=== PATIENT | female | born 1960 | race African-American/Black ===

== ENCOUNTER 2019-09-26 15:59 | Outpatient (CLI) | payer OTHER, SELFPAY ==
--- NOTE | ~2019-09-26 | MR_ITS ---
EXAMINATION: MR shoulder LT wo con DATE: 09/26/2019 17:13 INDICATION: Generalized left shoulder pain. TECHNIQUE: Magnetic resonance imaging (MRI) of the left shoulder was performed without intravenous co ntrast. Sequences included axial PD-weighted FS FSE, coronal oblique PD-weighted FS FSE, coronal obli que T2-weighted FS FSE, sagittal PD-weighted FS FSE, and sagittal T1-weighted SE. COMPARISON: Left shoulder radiographs dated 01/24/2019 FINDINGS: Coracoacromial arch: The acromion undersurface is curved in morphology (type II). There is a small anterior subacromial sp ur at the attachment of the coracoacromial ligament which is mildly thickened near its attachment. Ne gligible acromioclavicular osteoarthritis. Rotator cuff: Moderate tendinopathy of the mid to posterior supraspinatus tendon and mild tendinopathy of the anter ior infraspinatus tendon without discrete tears. The subscapularis and teres minor tendons are normal . Normal rotator cuff muscle bulk and signal. Biceps tendon, glenoid labrum and glenohumeral cartilage: Long head of the biceps tendon is normal. Glenoid labrum is normal. Glenohumeral cartilage is normal. Fluid: Physiologic amount of fluid in the glenohumeral joint and biceps tendon sheath. No loose osteochondra l bodies. Small amount of fluid in the subacromial/subdeltoid bursa consistent with mild bursitis. Bones: Normal marrow signal with no edema, fracture or pathologic marrow replacing process. IMPRESSION: 1. Moderate supraspinatus and mild infraspinatus tendinopathy without discrete tear. 2. Mild subacromial/subdeltoid bursitis. Reviewed, dictated and finalized at location A. ND RIGGER
== END 2019-09-26 16:00 ==
PROVIDERS: PCP Internal Medicine; Visit Provider Orthopaedic Surgery
DX: M75.82 Other shoulder lesions, left shoulder (principal); M75.52 Bursitis of left shoulder
CPT/HCPCS: 73221

== ENCOUNTER 2019-10-03 17:53 | Emergency (ER) | payer OTHER, SELFPAY ==
--- NOTE | ~2019-10-03 | CT_ITS ---
EXAMINATION: CT abdomen pelvis wo con DATE: 10/03/2019 21:38 INDICATION: Epigastric pain TECHNIQUE: Computed tomography (CT) of the abdomen and pelvis was performed without intravenous contr ast. Automated exposure control and iterative reconstruction technique were employed. The dose-length product was 369.24 mGy-cm. COMPARISON: None FINDINGS: Groundglass and patchy consolidation in the left lower lobe consistent with pneumonia. Mild periphera l reticular opacities in the right lower lobe which could represent atelectasis or mild pulmonary nely ma. Heart size is normal. Very small pericardial effusion. No pleural effusion. Diffuse hepatic steat osis with scattered peripheral fatty sparing. Cholecystectomy clips at the gallbladder fossa. Spleen, pancreas, bilateral adrenal glands and kidneys are normal. Normal appendix. There are few scattered colonic diverticula without adjacent inflammatory change to suggest diverticulitis. No bowel obstruct ion. Bladder, anteverted uterus and bilateral adnexa are unremarkable. Trace amount of ascites in the pelvis. There is calcified atherosclerosis of the aorta and bilateral iliac arteries. Infra umbilica l midline abdominal wall surgical scar. Bilateral moderate lumbar facet osteoarthritis. IMPRESSION: 1. Left lower lobe pneumonia. 2. Very small pericardial effusion. Length 3. Diffuse hepatic steatosis. Reviewed, dictated and finalized at location A. RY MACHINE MECHANIC SUPERVISOR
[2019-10-03 18:50] VITALS: BP 121/76; PULSE 97; RESP 16; TEMP 36.1; O2SAT 97
[2019-10-03 18:59] LABS: Basophils Percent Auto 0.4 % (0.2-1.2); Eosinophils Percent Auto 0.2 % (0-4.4); Hemoglobin 14.6 g/dL (12.0-15.0); Immature Granulocyte Absolute 0.02 K/mm3 (0.00-0.031); Immature Granulocyte Percent A 0.4 % (0-0.5); Lymphocytes Absolute Auto 1.49 K/mm3 (0.9-3.2); Lymphocytes Percent Auto 32.1 % (18.3-44.2); Mean Corpuscular Hemoglobin 28.7 pg (26-34); Mean Corpuscular Volume 84.6 fl (80-100); Mean Platelet Volume 9.1 fl (7.4-10.4); Monocytes Absolute Auto 0.3 K/mm3 (0.1-0.6); Monocytes Percent Auto 5.8 % (2.6-8.5); Neutrophils Absolute Auto 2.8 K/mm3 (1.3-6.7); Neutrophils Percent Auto 61.1 % (45.5-73.1); Platelet Count Result 265 k/mm3 (150-375); Red Blood Count 5.08 M/mm3 (4.2-5.4); Red Cell Distribution Width 12.1 % (11.5-14.5); White Blood Count 4.6 K/mm3 (4.5-10.0)
[2019-10-03 19:11] LABS: Alanine Aminotransferase 82 U/L (4-35); Albumin Level 4.6 g/dL (3.5-5.1); Alkaline Phosphatase 91 U/L (38-126); Aspartate Amino Transferase 51 U/L (14-36); Bilirubin,Total 0.9 mg/dL (0.2-1.3); Blood Urea Nitrogen 10 mg/dL (7-17); Calcium 9.6 mg/dL (8.4-10.2); Carbon Dioxide 29 mmol/L (22-30); Chloride 96 mmol/L (98-107); Estimated CRCL calculation 412 ml/min; Estimated Glomerular Filt Rate > 60; Glucose 181 mg/dL (65-105); Lipase 41 U/L (23-300); Potassium 3.7 mmol/L (3.4-5.0); Sodium 139 mmol/L (137-145)
[2019-10-03 19:18] LABS: Add Urine Microscopic? YES; Appearance Urine Clear (Clear); Bacteria Urine Trace /hpf; Bilirubin Urine Negative (Negative); Blood Urine Negative (Negative); Color Urine Yellow (Yellow); Glucose Urine UA 3+ mg/dL (Negative); Ketones Urine Trace mg/dL (Negative); Leukocyte Esterase Ur Negative LEU/UL (Negative); Mucus Urine Rare /lpf; Nitrate Urine Negative (Negative); Protein Urine Negative (Negative); RBC Urine 0-2 /hpf (0-2); Squamous Epithelial Cell Urine Many /hpf (Few); Urobilinogen Urine Negative mg/dL (<2.0); WBC Urine 0-3 /hpf
[2019-10-03 19:33] LABS: Specific Grav Ur 1.037 (1.001-1.035)
[2019-10-03 19:52] VITALS: BP 109/85; PULSE 87; RESP 22; TEMP 37; O2SAT 99
--- NOTE | 2019-10-03 19:57 | ED.ABDPAIN ---
HPI - Abdominal Pain General Chief Complaint: Abdominal Pain Stated Complaint: Abd pain Time Seen by Provider: 10/03/19 19:55 Source: patient and RN notes reviewed Mode of arrival: other Limitations: no limitations History of Present Illness HPI narrative: Pt is a 59 y/o female who presents to the ED with c/o diffuse abdominal cramping pain that began 3:30 PM today. Pt denies having a BM today. Pt states that she takes Aleve and Advil for her chronic back pain. Pt denies taking 4 tablets every day. Pt also reports N/V/D and a cough, but denies dysuria and fever. MD elicited complaint: abdominal pain Onset (ago): hour(s) Pain Consistency: constant Location: diffuse Severity: mild Quality: cramping Relieving factors: nothing Associated symptoms: nausea, vomiting, diarrhea and other (cough) Related Data Home Medications Medication Instructions Recorded Confirmed aspirin 81 mg tablet,delayed 81 mg PO DAILY 08/26/19 release ertugliflozin 5 mg tablet 5 mg PO QAM 08/26/19 insulin lispro 100 unit/mL 10 unit SUB-Q TID 08/26/19 subcutaneous solution insulin syringe,safetyneedle 0.3 #500 each 08/26/19 mL 30 x /16 losartan 50 mg tablet 50 mg PO DAILY 08/26/19 metformin 1,000 mg tablet 1,000 mg PO BID 08/26/19 rosuvastatin 20 mg tablet 20 mg PO DAILY 08/26/19 Allergies Allergy/AdvReac Type Severity Reaction Status Date / Time No Known Allergies Allergy Verified 08/31/19 11:14 Review of Systems Review of Systems: All systems reviewed & are unremarkable except as noted in HPI and below Constitutional: Constitutional: Denies fever(s) Gastrointestinal: Gastrointestinal: Reports abdominal pain (diffuse, cramping), Reports diarrhea, Reports nausea and Reports vomiting Genitourinary: Genitourinary: Denies dysuria [facility] Past Medical History Medical History (Updated 10/03/19 @ 23:58 by Yoshi Amador MD) Diabetes Dyslipidemia associated with type 2 diabetes mellitus Essential hypertension Gallstones GERD (gastroesophageal reflux disease) Hepatic steatosis Lumbar spondylolysis Osteoarthritis of spine with radiculopathy, lumbosacral region Osteoarthrosis, hip Post-menopausal Rotator cuff tear, left Ruptured intervertebral disc Sciatica of left side Sensorineural hearing loss (SNHL) of left ear Tobacco use Type 2 diabetes mellitus with hyperglycemia, with long-term current use of insulin Surgical History Surgical History (Updated 10/03/19 @ 20:11 by Wendy Garvey) H/O spinal fusion Hx of section Hx of cholecystectomy Social History Social History Smoking status: Former smoker Smoking end date: 08/10/09 Alcohol intake: current Exam Const: General: in distress mild Nutritional Appearance: well nourished Orientation/consciousness: patient oriented x3 (alert) and Other orientation findings (Alert) Limitations: no limitations HENMT: Head: normocephalic and atraumatic Ears: external ears normal General nose exam: No nasal discharge present and no epistaxis Face and sinus: face symmetric Mouth: Yes lip normal, Yes tongue normal and Yes moist mucous membranes Throat: other (No exudate, no erythema) Eyes: Conjunctivae: conjunctivae normal Sclera: sclerae normal EOM: EOMs intact bilaterally Neck: Neck: full ROM, no lymphadenopathy and supple Thyroid: thyroid normal Chest: Chest palpation & inspection: no tenderness Resp: Effort & Inspection: normal respiratory effort Auscultation: clear to auscultation bilaterally, no rales, no rhonchi, no wheezes and other (breath sounds equal) Cardio: Rate: regular rate Rhythm: regular rhythm Heart sounds: no gallops and no murmurs GI: Inspection: non-distended GI Palp: Yes abdominal tenderness (epigastric and RUQ) Auscultation: other (bowel sounds present) : General: Yes no CVA tenderness Back/Spine/Pelvis: Back: no CVA tenderness Thoracic/Lumbar Spine: thoracic and lumbar
[2019-10-03] MEDS: DICYCLOMINE HCL INJ 20 MG/2 ML VIAL IM (20:57)
[2019-10-03] MEDS: PROCHLORPERAZINE EDISYLATE 10 MG/2 ML VIAL IV PUSH (20:57)
[2019-10-03 21:09] VITALS: BP 127/67; PULSE 87; RESP 16; O2SAT 100
[2019-10-03 22:40] VITALS: BP 115/74; PULSE 88; RESP 16; TEMP 36.3; O2SAT 100
[2019-10-04] MEDS: AZITHROMYCIN 250 MG TABLET 500 MG PO (00:09)
[2019-10-04 00:10] VITALS: BP 106/85; PULSE 80; RESP 17; TEMP 36.8; O2SAT 100
== END 2019-10-04 00:11 | disposition home or self-care (01) ==
PROVIDERS: Emergency Provider Emergency Medicine; PCP Internal Medicine
DX: J18.9 Pneumonia, unspecified organism (principal); I10 Essential (primary) hypertension; E11.69 Type 2 diabetes mellitus with other specified complication; E78.49 Other hyperlipidemia; Z79.84 Long term (current) use of oral hypoglycemic drugs; Z79.4 Long term (current) use of insulin; K21.9 Gastro-esophageal reflux disease without esophagitis; Z98.1 Arthrodesis status; Z87.891 Personal history of nicotine dependence; K76.0 Fatty (change of) liver, not elsewhere classified; Z79.82 Long term (current) use of aspirin
CPT/HCPCS: 36415; 74176; 80053; 81001; 83690; 85025; 96372; 96374; 99284; A9270; J0500; J0780

== ENCOUNTER 2019-11-29 11:22 | Outpatient (CLI) | payer OTHER, SELFPAY ==
[2019-11-29 11:53] LABS: Basophils Percent Auto 0.8 % (0.2-1.2); Eosinophils Absolute Auto 0.1 K/mm3 (0-0.3); Eosinophils Percent Auto 1.7 % (0-4.4); Hematocrit 44.3 % (37.0-47.0); Hemoglobin 14.7 g/dL (12.0-15.0); Immature Granulocyte Absolute 0.02 K/mm3 (0.00-0.031); Immature Granulocyte Percent A 0.6 % (0-0.5); Lymphocytes Absolute Auto 1.68 K/mm3 (0.9-3.2); Lymphocytes Percent Auto 46.5 % (18.3-44.2); Mean Corpuscular HGB Conc 33.2 g/dl (32-36); Mean Corpuscular Hemoglobin 28.4 pg (26-34); Mean Corpuscular Volume 85.7 fl (80-100); Mean Platelet Volume 8.9 fl (7.4-10.4); Monocytes Absolute Auto 0.2 K/mm3 (0.1-0.6); Monocytes Percent Auto 6.6 % (2.6-8.5); Neutrophils Absolute Auto 1.6 K/mm3 (1.3-6.7); Neutrophils Percent Auto 43.8 % (45.5-73.1); Platelet Count Result 270 k/mm3 (150-375); Red Blood Count 5.17 M/mm3 (4.2-5.4); Red Cell Distribution Width 12.6 % (11.5-14.5); White Blood Count 3.6 K/mm3 (4.5-10.0)
[2019-11-29 12:01] LABS: Hemoglobin A1C 8.1 % (<5.7)
[2019-11-29 12:08] LABS: Alanine Aminotransferase 36 U/L (4-35); Albumin Level 4.7 g/dL (3.5-5.1); Alkaline Phosphatase 69 U/L (38-126); Aspartate Amino Transferase 34 U/L (14-36); Blood Urea Nitrogen 8 mg/dL (7-17); Calcium 10.2 mg/dL (8.4-10.2); Carbon Dioxide 28 mmol/L (22-30); Chloride 102 mmol/L (98-107); Estimated Glomerular Filt Rate > 60; Glucose 189 mg/dL (65-105); Potassium 4.2 mmol/L (3.4-5.0); Sodium 139 mmol/L (137-145)
[2019-11-29 13:05] LABS: Hepatitis B Surface Antigen Negative (Negative)
[2019-11-29 13:10] LABS: HAV RESULT Negative (Negative); Hepatitis B Core IgM Result Negative (Negative)
[2019-11-29 13:22] LABS: Hepatitis C Virus Antibody Negative (Negative)
[2019-11-29 13:26] LABS: Microalbumin Urine Random < 6.0 mg/L (0-16.7)
== END 2019-11-29 11:23 | disposition home or self-care (01) ==
PROVIDERS: PCP Internal Medicine; Visit Provider Internal Medicine
DX: E11.9 Type 2 diabetes mellitus without complications (principal); Z77.21 Contact with and (suspected) exposure to potentially hazardous body fluids
CPT/HCPCS: 36415; 80053; 80074; 82043; 83036; 85025

== ENCOUNTER 2019-12-07 09:13 | Outpatient (CLI) | payer OTHER, SELFPAY ==
[2019-12-07 09:35] LABS: Eosinophils Absolute Auto 0.1 K/mm3 (0-0.3); Eosinophils Percent Auto 2.1 % (0-4.4); Hematocrit 40.7 % (37.0-47.0); Hemoglobin 13.4 g/dL (12.0-15.0); Immature Granulocyte Absolute 0.01 K/mm3 (0.00-0.031); Immature Granulocyte Percent A 0.3 % (0-0.5); Lymphocytes Absolute Auto 1.76 K/mm3 (0.9-3.2); Lymphocytes Percent Auto 46.2 % (18.3-44.2); Mean Corpuscular HGB Conc 32.9 g/dl (32-36); Mean Corpuscular Hemoglobin 28.5 pg (26-34); Mean Corpuscular Volume 86.4 fl (80-100); Mean Platelet Volume 8.8 fl (7.4-10.4); Monocytes Absolute Auto 0.3 K/mm3 (0.1-0.6); Monocytes Percent Auto 8.1 % (2.6-8.5); Neutrophils Absolute Auto 1.6 K/mm3 (1.3-6.7); Neutrophils Percent Auto 42.3 % (45.5-73.1); Platelet Count Result 251 k/mm3 (150-375); Red Blood Count 4.71 M/mm3 (4.2-5.4); Red Cell Distribution Width 12.5 % (11.5-14.5); White Blood Count 3.8 K/mm3 (4.5-10.0)
[2019-12-07 09:46] LABS: Cholesterol 136 mg/dL (0-200); HDL Direct 51 mg/dL; Triglycerides 66 mg/dL (<150)
[2019-12-07 09:56] LABS: LDL Cholesterol Direct 59 mg/dL
== END 2019-12-07 09:14 | disposition home or self-care (01) ==
PROVIDERS: PCP Internal Medicine; Visit Provider Internal Medicine
DX: D72.819 Decreased white blood cell count, unspecified (principal); E78.5 Hyperlipidemia, unspecified
CPT/HCPCS: 36415; 80061; 85025

== ENCOUNTER 2020-02-24 12:35 | Outpatient (CLI) | payer OTHER, SELFPAY ==
[2020-02-24 12:53] LABS: Basophils Percent Auto 0.9 % (0.2-1.2); Eosinophils Absolute Auto 0.1 K/mm3 (0-0.3); Eosinophils Percent Auto 2.8 % (0-4.4); Hematocrit 44.3 % (37.0-47.0); Hemoglobin 14.8 g/dL (12.0-15.0); Immature Granulocyte Absolute 0.02 K/mm3 (0.00-0.031); Immature Granulocyte Percent A 0.5 % (0-0.5); Lymphocytes Absolute Auto 1.66 K/mm3 (0.9-3.2); Lymphocytes Percent Auto 39.2 % (18.3-44.2); Mean Corpuscular HGB Conc 33.4 g/dl (32-36); Mean Corpuscular Volume 86.7 fl (80-100); Mean Platelet Volume 8.9 fl (7.4-10.4); Monocytes Absolute Auto 0.3 K/mm3 (0.1-0.6); Monocytes Percent Auto 7.1 % (2.6-8.5); Neutrophils Absolute Auto 2.1 K/mm3 (1.3-6.7); Neutrophils Percent Auto 49.5 % (45.5-73.1); Platelet Count Result 284 k/mm3 (150-375); Red Blood Count 5.11 M/mm3 (4.2-5.4); Red Cell Distribution Width 13.1 % (11.5-14.5); White Blood Count 4.2 K/mm3 (4.5-10.0)
== END 2020-02-24 12:36 | disposition home or self-care (01) ==
PROVIDERS: PCP Internal Medicine; Visit Provider Internal Medicine
DX: D72.819 Decreased white blood cell count, unspecified (principal)
CPT/HCPCS: 36415; 85025

== ENCOUNTER 2020-03-19 11:16 | Outpatient (CLI) | payer OTHER, SELFPAY ==
[2020-03-19 12:10] LABS: Alanine Aminotransferase 42 U/L (4-35); Albumin Level 4.7 g/dL (3.5-5.1); Alkaline Phosphatase 69 U/L (38-126); Anion Gap 9 mmol/L (8-16); Aspartate Amino Transferase 34 U/L (14-36); Bilirubin,Total 0.8 mg/dL (0.2-1.3); Blood Urea Nitrogen 9 mg/dL (7-17); Calcium 9.8 mg/dL (8.4-10.2); Carbon Dioxide 28 mmol/L (22-30); Chloride 100 mmol/L (98-107); Estimated Glomerular Filt Rate > 60; Glucose 241 mg/dL (65-105); Potassium 4.1 mmol/L (3.4-5.0); Sodium 137 mmol/L (137-145)
[2020-03-19 12:15] LABS: Hemoglobin A1C 7.4 % (<5.7)
[2020-03-19 14:00] LABS: MALB Creatinine Ratio < 21.4 mg/g (0-30); Microalbumin Urine Random < 6.0 mg/L (0-16.7)
== END 2020-03-19 11:17 | disposition home or self-care (01) ==
LOC: ANHLAB 11:18
PROVIDERS: PCP Internal Medicine; Visit Provider Internal Medicine
DX: E11.65 Type 2 diabetes mellitus with hyperglycemia (principal); Z79.4 Long term (current) use of insulin
CPT/HCPCS: 36415; 80053; 82043; 83036

== ENCOUNTER 2020-07-17 11:30 | Outpatient (CLI) | payer OTHER, SELFPAY ==
[2020-07-17 11:51] LABS: Basophils Percent Auto 0.8 % (0.2-1.2); Eosinophils Absolute Auto 0.1 K/mm3 (0-0.3); Hemoglobin 14.7 g/dL (12.0-15.0); Immature Granulocyte Absolute 0.03 K/mm3 (0.00-0.031); Immature Granulocyte Percent A 0.8 % (0-0.5); Lymphocytes Absolute Auto 1.43 K/mm3 (0.9-3.2); Lymphocytes Percent Auto 35.9 % (18.3-44.2); Mean Corpuscular HGB Conc 33.4 g/dl (32-36); Mean Corpuscular Hemoglobin 29.4 pg (26-34); Mean Platelet Volume 8.9 fl (7.4-10.4); Monocytes Absolute Auto 0.3 K/mm3 (0.1-0.6); Monocytes Percent Auto 7.3 % (2.6-8.5); Neutrophils Absolute Auto 2.1 K/mm3 (1.3-6.7); Neutrophils Percent Auto 53.2 % (45.5-73.1); Platelet Count Result 227 k/mm3 (150-375); Red Cell Distribution Width 12.7 % (11.5-14.5)
[2020-07-17 12:09] LABS: Alanine Aminotransferase 61 U/L (4-35); Albumin Level 4.1 g/dL (3.5-5.1); Alkaline Phosphatase 68 U/L (38-126); Anion Gap 9 mmol/L (8-16); Aspartate Amino Transferase 40 U/L (14-36); Blood Urea Nitrogen 9 mg/dL (7-17); Calcium 9.8 mg/dL (8.4-10.2); Carbon Dioxide 24 mmol/L (22-30); Chloride 103 mmol/L (98-107); Estimated Glomerular Filt Rate > 60; Glucose 192 mg/dL (65-105); Potassium 3.9 mmol/L (3.4-5.0); Sodium 136 mmol/L (137-145)
[2020-07-17 12:43] LABS: Creatinine Urine 57.4 mg/dL
[2020-07-17 12:49] LABS: Hemoglobin A1C 7.5 % (<5.7)
[2020-07-17 12:59] LABS: Vitamin D 25 Hydroxy 23.9 ng/mL
[2020-07-17 13:31] LABS: MALB Creatinine Ratio < 10.5 mg/g (0-30); Microalbumin Urine Random < 6.0 mg/L (0-16.7)
== END 2020-07-17 11:31 | disposition home or self-care (01) ==
PROVIDERS: PCP Internal Medicine; Visit Provider Internal Medicine
DX: E11.9 Type 2 diabetes mellitus without complications (principal); E78.5 Hyperlipidemia, unspecified; I10 Essential (primary) hypertension; Z79.4 Long term (current) use of insulin
CPT/HCPCS: 36415; 80053; 82043; 82306; 83036; 85025

== ENCOUNTER 2020-09-01 08:34 | Outpatient (CLI) | payer OTHER, SELFPAY ==
--- NOTE | ~2020-09-01 | MR_ITS ---
EXAMINATION: MR shoulder LT wo con DATE: 09/01/2020 10:08 INDICATION: Left shoulder pain TECHNIQUE: Magnetic resonance imaging (MRI) of the left shoulder was performed without intravenous co ntrast. Sequences included axial PD-weighted FS FSE, coronal oblique PD-weighted FS FSE, coronal obli que T2-weighted FS FSE, sagittal PD-weighted FS FSE, and sagittal T1-weighted SE. COMPARISON: Left shoulder radiographs dated 03/23/2020 and left shoulder MRI dated 09/26/2019 FINDINGS: Coracoacromial arch: The acromion undersurface is curved in morphology (type II). Density is a small anterior subacromial spur at the insertion of the coracoacromial ligament which is mildly thickened at its acromial attach ment. Negligible acromioclavicular osteoarthritis. Rotator cuff: Interval progression of moderate supraspinatus and infraspinatus tendinopathy. There is a new small p artial-thickness intrasubstance tear of the conjoined portion of the supraspinatus and infraspinatus tendons centered 1 cm from the junction of the superior and middle facet footplates. The tear measure s approximately 4 mm AP and involves up to one third of the tendon thickness. The teres minor tendon is normal. Mild subscapularis tendinopathy without discrete tear. Normal rotator cuff muscle bulk and signal. Biceps tendon, glenoid labrum and glenohumeral cartilage: Long head of the biceps tendon is normal. Glenoid labrum is normal. Glenohumeral cartilage is normal. Fluid: Physiologic amount of fluid in the glenohumeral joint and biceps tendon sheath. No loose osteochondra l bodies. Small amount of fluid in the subacromial/subdeltoid bursa consistent with mild bursitis. Bones: Normal marrow signal with no edema, fracture or abnormal marrow replacing process. New cystic change at the greater tuberosity likely related to chronic rotator cuff disease. IMPRESSION: 1. Interval progression of moderate supraspinatus and infraspinatus tendinopathy with small mild intr asubstance tear at the conjoined portion of the tendon. 2. Mild subacromial/subdeltoid bursitis. Reviewed, dictated and finalized at location B. OR WEB SERVICES DEVELOPER IMPRESSION: 1. Interval progression of moderate supraspinatus and infraspinatus tendinopath y with small mild intrasubstance tear at the conjoined portion of the tendon. 2. Mild subacromial/subdeltoid bursitis.
== END 2020-09-01 08:35 ==
PROVIDERS: PCP Internal Medicine; Visit Provider Nurse Practitioner Family
DX: M25.512 Pain in left shoulder (principal); M75.52 Bursitis of left shoulder
CPT/HCPCS: 73221

== ENCOUNTER 2020-10-12 12:24 | Outpatient (CLI) | payer OTHER, SELFPAY ==
[2020-10-12 12:58] LABS: Alanine Aminotransferase 40 U/L (4-35); Albumin Level 4.4 g/dL (3.5-5.1); Alkaline Phosphatase 64 U/L (38-126); Anion Gap 6 mmol/L (8-16); Aspartate Amino Transferase 36 U/L (14-36); Bilirubin,Total 0.7 mg/dL (0.2-1.3); Blood Urea Nitrogen 5 mg/dL (7-17); Calcium 9.4 mg/dL (8.4-10.2); Carbon Dioxide 30 mmol/L (22-30); Chloride 104 mmol/L (98-107); Estimated Glomerular Filt Rate > 60; Glucose 64 mg/dL (65-105); Sodium 140 mmol/L (137-145)
[2020-10-12 13:01] LABS: Hemoglobin A1C 7.2 % (<5.7)
[2020-10-12 13:24] LABS: Microalbumin Urine Random < 6.0 mg/L (0-16.7)
[2020-10-12 13:25] LABS: MALB Creatinine Ratio < 6.6 mg/g (0-30)
== END 2020-10-12 12:25 | disposition home or self-care (01) ==
PROVIDERS: PCP Internal Medicine; Visit Provider Internal Medicine
DX: E11.65 Type 2 diabetes mellitus with hyperglycemia (principal); Z79.4 Long term (current) use of insulin
CPT/HCPCS: 36415; 80053; 82043; 83036

== ENCOUNTER → 2020-11-20 00:22 | Outpatient (CLI) | payer OTHER, SELFPAY ==
[2020-11-20 20:45] LABS: SARS-CoV-2 RNA PCR Negative
== END ==
PROVIDERS: PCP Internal Medicine; Visit Provider Orthopaedic Surgery
DX: Z01.812 Encounter for preprocedural laboratory examination (principal); Z20.822 Contact with and (suspected) exposure to COVID-19
CPT/HCPCS: C9803; U0003; U0005

== ENCOUNTER 2020-11-21 09:25 | Outpatient (CLI) | payer OTHER, SELFPAY ==
--- NOTE | 2020-11-21 09:30 | ECG_ITS ---
Measurements Intervals [place] Rate: 88 P: 59 LA: 167 QRS: 26 QRSD: 88 T: 60 QT: 325 QTc: 394 Interpretive Statements SINUS RHYTHM VOLTAGE CRITERIA FOR LVH BORDERLINE R WAVE PROGRESSION, ANTERIOR LEADS BASELINE ARTIFACT- I, II, III, AVR, AVL, AVF BORDERLINE ECG Electronically Signed On 11-21-2020 9:45:22 CDT by Adin Davidson D.O.
== END 2020-11-21 09:26 | disposition home or self-care (01) ==
LOC: ANHSURGERY 09:31
PROVIDERS: PCP Internal Medicine; Visit Provider Orthopaedic Surgery
DX: Z01.810 Encounter for preprocedural cardiovascular examination (principal); E78.5 Hyperlipidemia, unspecified; E11.65 Type 2 diabetes mellitus with hyperglycemia; Z51.81 Encounter for therapeutic drug level monitoring; Z79.4 Long term (current) use of insulin; I10 Essential (primary) hypertension
CPT/HCPCS: 93005

== ENCOUNTER 2020-11-23 00:24 | Day surgery (SDC) | payer OTHER, SELFPAY ==
--- NOTE | 2020-11-14 11:13 | PM.IMHP ---
H&P: HPI History of Present Illness Date/Time: Shoulder/Arm Injury/Condition Pt. presents with Lt shoulder pain. Pt. last cortisone injection was given on , which the pt. state gave her approx 1 1/2 months of pain relief. Pt. declined Physical therapy and stated she works on her Home exercises every other day with no relief. Pt. states that there has not been a new injury to the shoulders. She presents today to go over the next POC after MRI was performed the pt. states she has had no pain relief and does not want another cortisone injections. Dominant hand: right Current symptoms: Reports stiffness, radiation, crepitus and other (sharp pain ) Location: anterior and lateral Character: constant, stabbing, radiating and throbbing Pain scale (0-10): 7 Onset: >1 year Exacerbated by: motion, lifting, prolonged activity, activities of daily living, sleeping and reaching/overhead motion Previous treatments: Anti-inflammatory meds: bilateral, Ice: bilateral, Heat: bilateral, Injections: bilateral and Other: bilateral (HEP ) Improved by treatment/surgery: some Chief Complaint: Left shoulder pain Review of Systems Review of Systems: All systems reviewed & are unremarkable except as noted in HPI and below Constitutional: Constitutional: Denies headache(s) and Denies weakness Eyes: Eyes: Denies blurry vision, Denies change in vision and Denies loss of vision ENT: Denies dizziness, Denies dry mouth, Denies headache(s) and Denies nasal congestion Cardiovascular: Cardiovascular: Denies chest pain, Denies syncope, Denies leg edema and Denies dyspnea on exertion Respiratory: Respiratory: Denies cough and Denies dyspnea on exertion Gastrointestinal: Gastrointestinal: Denies abdominal pain, Denies constipation and Denies diarrhea Genitourinary: Genitourinary: Denies urinary frequency Musculoskeletal: Musculoskeletal: Reports as per HPI and Denies numbness Integumentary/Breasts: Skin/Breast: Reports system reviewed and no additional complaints, except as docu Neurologic: Denies dizziness, Denies syncope, Denies headache(s), Denies loss of vision, Denies numbness and Denies weakness Psychiatric: Psychiatric: Reports no additional psychiatric complaints Endocrine: Endocrine: Reports no additional endocrine complaints Hematologic/Lymphatic: Hematologic/Lymphatic: Reports no additional hematologic/lymphatic complaints [facility] Past Medical History Medical History Diabetes Dyslipidemia associated with type 2 diabetes mellitus Essential hypertension Gallstones GERD (gastroesophageal reflux disease) Hepatic steatosis Left shoulder pain Lumbar spondylolysis Osteoarthritis of spine with radiculopathy, lumbosacral region Osteoarthrosis, hip Overweight (BMI 25.0-29.9) Post-menopausal Rotator cuff tear, left Ruptured intervertebral disc Sciatica of left side Sensorineural hearing loss (SNHL) of left ear Tobacco use Type 2 diabetes mellitus with hyperglycemia, with long-term current use of insulin Surgical History Surgical History H/O spinal fusion Hx of section Hx of cholecystectomy Family History Family History Sibling Diabetes mellitus Family history of thyroid disease Hypertension Father Family history of congestive heart failure Diabetes mellitus Hypertension Other Family history of arthritis Social History Social History Alcohol intake: never Meds Home Medications and Allergies Home Medications Medication Instructions Recorded Confirmed Type aspirin 81 mg tablet,delayed 81 mg PO DAILY 08/26/19 10/11/20 History release omeprazole 40 mg capsule,delayed 40 mg PO DAILY #30 cap 10/04/19 10/11/20 Rx release rosuvastatin 20 mg tablet 20 mg PO DAILY #90 tablet 04/23/2010/11
[2020-11-20 09:09] VITALS: BMI 27.2
--- NOTE | 2020-11-22 12:47 | WPDANESEPP ---
Derrick - Griselda Pre Procedure Procedure: Operation Date: 11/23/20 07:30 Proposed Procedures p Left Open Rotator Cuff Repair - Jc More MD Date/Time: 11/22/20 12:47 Pre Op Diagnosis: left rotator cuff tear Patient Data Age: 60 Gender: F Height: 1.68 m Weight: 76.6 kg Allergies Allergy/AdvReac Type Severity Reaction Status Date / Time No Known Allergies Allergy Verified 11/20/20 09:08 Home Medications Medication Instructions Recorded Confirmed Type aspirin 81 mg tablet,delayed 81 mg PO DAILY 08/26/19 11/20/20 History release carvedilol 3.125 mg tablet 3.125 mg PO DAILY #90 tablet 07/04/20 11/20/20 Rx insulin lispro 100 unit/mL 15 unit SUB-Q TID 90 Days #40 ml 07/23/20 11/20/20 Rx subcutaneous solution metformin 1,000 mg tablet 1,000 mg PO BID 90 Days #180 tablet 07/23/20 11/20/20 Rx pen needle, diabetic 32 gauge x #100 ea 07/23/20 11/20/20 Rx 5/32 amlodipine 5 mg tablet 5 mg PO DAILY #90 tablet 08/14/20 11/20/20 Rx chlorhexidine gluconate 4 % 1 applic TOPICAL ONCE #237 ml 10/18/20 11/20/20 Rx topical liquid calcium 600 mg PO DAILY 11/20/20 11/20/20 History cholecalciferol (vitamin D3) 25 mcg PO DAILY 11/20/20 11/20/20 History [Vitamin D3] empagliflozin 10 mg tablet 10 mg PO DAILY #90 tablet 11/20/20 Rx insulin glargine U-300 conc 30 unit SUB-Q HS 11/20/20 11/20/20 History [Toujeo Max U-300 SoloStar] losartan 50 mg PO DAILY 11/20/20 11/20/20 History omeprazole 20 mg PO DAILY 11/20/20 11/20/20 History rosuvastatin [Crestor] 20 mg PO EVERY OTHER DAY 11/20/20 11/20/20 History Patient hx anesthesia problems: none Family hx anesthesia problems: none PMFSH Past Medical History Medical History Diabetes Dyslipidemia associated with type 2 diabetes mellitus Essential hypertension Gallstones GERD (gastroesophageal reflux disease) Hepatic steatosis Left shoulder pain Lumbar spondylolysis Osteoarthritis of spine with radiculopathy, lumbosacral region Osteoarthrosis, hip Overweight (BMI 25.0-29.9) Post-menopausal Rotator cuff tear, left Ruptured intervertebral disc Sciatica of left side Sensorineural hearing loss (SNHL) of left ear Tobacco use Type 2 diabetes mellitus with hyperglycemia, with long-term current use of insulin Surgical History Surgical History H/O spinal fusion Hx of section Hx of cholecystectomy Family History Family History Sibling Diabetes mellitus Family history of thyroid disease Hypertension Father Family history of congestive heart failure Diabetes mellitus Hypertension Other Family history of arthritis Social History Social History Years smoked: 20 Smoking status: Former smoker Tobacco type: cigarettes Smoking end date: 08/10/10 Alcohol intake: never Substance use: never Substance use type: does not use Spiritual care concerns: No Exam Day of Procedure 11/22/20 12:47
[2020-11-23] VITALS (9 sets, daily range): BP systolic 118–145; BP diastolic 76–95; PULSE 91–104; RESP 12–20; TEMP 36.2–36.4; O2SAT 95–100; BMI 27.0
--- NOTE | 2020-11-23 06:28 | SUR.PREOP ---
PT STATES GURGLY STOMACH PT STATES SHE CALLED DR PHILLIP OFFICE REGARDING UPSET STOMACH.
[2020-11-23] MEDS: ACETAMINOPHEN 500 MG TABLET 1000 MG PO (07:01)
[2020-11-23] MEDS: CELECOXIB 200 MG CAPSULE PO (07:01)
--- NOTE | 2020-11-23 07:03 | WPDANESEPPF ---
Anes - Initial Pre Proc Eval Procedure: Operation Date: 11/23/20 07:30 Proposed Procedures p Left Open Rotator Cuff Repair - Jc More MD Date/Time: 11/23/20 07:03 Surgeon: Jc More MD Pre Op Diagnosis: left rotator cuff tear Patient Data Age: 60 Gender: F Height: 5 ft 6 in Weight: 76 kg Last Vital Signs Temp 36.2 C L 11/23/20 06:30 Pulse 94 11/23/20 06:30 Resp 18 11/23/20 06:30 BP 144/84 H 11/23/20 06:30 Pulse Ox 100 11/23/20 06:30 Allergies Allergy/AdvReac Type Severity Reaction Status Date / Time No Known Allergies Allergy Verified 11/23/20 06:10 Home Medications Medication Instructions Recorded Confirmed Type aspirin 81 mg tablet,delayed 81 mg PO DAILY 08/26/19 11/23/20 History release carvedilol 3.125 mg tablet 3.125 mg PO DAILY #90 tablet 07/04/20 11/23/20 Rx insulin lispro 100 unit/mL 15 unit SUB-Q TID 90 Days #40 ml 07/23/20 11/23/20 Rx subcutaneous solution metformin 1,000 mg tablet 1,000 mg PO BID 90 Days #180 tablet 07/23/20 11/23/20 Rx pen needle, diabetic 32 gauge x #100 ea 07/23/20 11/20/20 Rx 5/32 amlodipine 5 mg tablet 5 mg PO DAILY #90 tablet 08/14/20 11/23/20 Rx chlorhexidine gluconate 4 % 1 applic TOPICAL ONCE #237 ml 10/18/20 11/20/20 Rx topical liquid calcium 600 mg PO DAILY 11/20/20 11/23/20 History cholecalciferol (vitamin D3) 25 mcg PO DAILY 11/20/20 11/23/20 History [Vitamin D3] empagliflozin 10 mg tablet 10 mg PO DAILY #90 tablet 11/20/20 11/23/20 Rx insulin glargine U-300 conc 30 unit SUB-Q HS 11/20/20 11/23/20 History [Toujeo Max U-300 SoloStar] losartan 50 mg PO DAILY 11/20/20 11/23/20 History omeprazole 20 mg PO DAILY 11/20/20 11/23/20 History rosuvastatin [Crestor] 20 mg PO EVERY OTHER DAY 11/20/20 11/23/20 History Patient hx anesthesia problems: none Family hx anesthesia problems: none PMFSH Past Medical History Medical History Diabetes Dyslipidemia associated with type 2 diabetes mellitus Essential hypertension Gallstones GERD (gastroesophageal reflux disease) Hepatic steatosis Left shoulder pain Lumbar spondylolysis Osteoarthritis of spine with radiculopathy, lumbosacral region Osteoarthrosis, hip Overweight (BMI 25.0-29.9) Post-menopausal Rotator cuff tear, left Ruptured intervertebral disc Sciatica of left side Sensorineural hearing loss (SNHL) of left ear Tobacco use Type 2 diabetes mellitus with hyperglycemia, with long-term current use of insulin Surgical History Surgical History H/O spinal fusion Hx of section Hx of cholecystectomy Family History Family History Sibling Diabetes mellitus Family history of thyroid disease Hypertension Father Family history of congestive heart failure Diabetes mellitus Hypertension Other Family history of arthritis Social History Social History Years smoked: 20 Smoking status: Former smoker Tobacco type: cigarettes Smoking end date: 08/10/10 Alcohol intake: never Substance use: never Substance use type: does not use Living arrangements: with family Spiritual care concerns: No Anes - Eval Final PreProcedure Day of Procedure 11/23/20 07:03 Patient weight: overweight Heart: regular rate and rhythm Lungs: clear to auscultation Airway: Mallampati scale class II Neurological: alert and oriented Last oral intake: >/= 8 hours ASA classification: III Emergent: no Anesthetic plan: proceed Anesthesia type and monitoring: general ETT and standard monitoring Informed Consent: The patient's anesthetic plan and its attendant risks and benefits were discussed with the patient/family/POA. Questions were solicited and answers provided to the satisfaction of the patient/family/POA.
[2020-11-23] MEDS: LACTATED RINGERS 1,000 ML 30 ML IV CONT ×2 (07:05→09:55)
[2020-11-23 07:14] LABS: Glucose Point of Care 111 (65-105)
--- NOTE | 2020-11-23 07:46 | WPDHPUPDATE1 ---
History and Physical Update Update Date/Time: 11/23/20 07:46 History and Physical has been reviewed, including an updated exam of the patient. There are NO changes in the patient's condition. Risks, benefits, and alternatives have been discussed and questions answered. Patient agrees to proceed with procedure.
[2020-11-23] MEDS: ceFAZolin 2 GM/D5W 50 ML 2 GM/50 ML BAG IVPB (07:53)
--- NOTE | 2020-11-23 07:54 | WPDANESPNB ---
Anes - Peripheral Nerve Block Date/Time: 11/23/20 07:54 I have discussed with the patient/family/POA the placement of a peripheral nerve block for post-operative pain management, including associated risks, benefits, complications, and side effects. Alternative methods of post-operative analgesia were detailed. Questions were solicited and answers provided to the satisfaction of the patient/family/POA. Time-Out: A pre-procedural Time-Out was completed immediately before starting the procedure and confirmed: Patient Identification, Site, Procedure, Patient Position and the Availability of Requisite Equipment. Clinical Indications: Acute post-operative pain management requested by the operative surgeon. Nerve Block Insertion Note Anes-nerve block: interscalene left Patient position: other (sitting) Skin prep: duraprep Needle: 22 gauge, stimulating, insulated echogenic needle. Needle length: 50 mm Technique: nerve stimulation lost at (mA) (0.21) and ultrasound Injectate: bupivacaine 0.5% with epi 5 mcg/ml (30ml) Observations: tolerated well Complications: none Procedure start time:: 739 Procedure end time:: 747
--- NOTE | 2020-11-23 09:56 | PM.PROC ---
Procedure Note - Detailed Date of procedure: 11/23/20 Pre-op diagnosis: left rotator cuff tear Post-op diagnosis: same Procedure performed: REPAIR OF LEFT ROTATOR CUFF Description of procedure: THE PATIENT WAS TAKEN TO THE OPERATING ROOM AND THEN INTUBATED AND PLACED IN THE BEACH CHAIR POSITION. THE LEFT UPPER EXTREMITY WAS PREPPED AND DRAPED IN THE NORMAL STERILE FASHION. AN INCISION WAS MADE IN BETWEEN THE SHANDA-LATERAL ACROMION AND THE AC JOINT. THE FASCIA WAS IDENTIFIED. NEXT A MINI OPEN INCISION WAS MADE THROUGH THE DELTOID MUSCLE EXPOSING THE SUBACROMIAL SPACE. A LIMITED ACROMIOPLASTY WAS PREFORMED. A THOROUGH BURSECTOMY WAS PREFORMED. THE ROTATOR CUFF WAS IDENTIFIED. THERE WAS A NEAR FULL THICKNESS TEAR AT THE ROTATOR CUFF INTERVAL. THE TEAR MEASURED ABOUT 2 CM FROM MEDIAL TO LATERAL. THE TEAR DID NOT EXTEND TO THE GREATER TUBEROSITY AND THE INSERTION TO THE CUFF WAS NOT COMPROMISED. 3 ARTHREX #2 FIBER TAPE SUTURES WERE USED TO APPROXIMATE THE TEAR WITH A FIGURE 8 TYPE TECHNIQUE. THE REPAIR WAS EXCELLENT. THERE WAS NO IMPINGEMENT ON THE REPAIR FROM THE ACROMION WITH RANGE OF MOTION. THE WOUND WAS IRRIGATED WITH COPIOUS AMOUNTS OF ANTIBIOTIC SOLUTION. THE DELTOID MUSCLE WAS REPAIRED WITH #2 FIBER WIRE TAPE AND 0 VICRYL SUTURE. THE SUBCUTANEOUS LAYER WAS APPROXIMATED WITH 2-0 VICRYL. THE SKIN WAS APPROXIMATED WITH 3-0 QUIL AND DERMABOND. STERILE DRESSING WAS APPLIED. PATIENT WAS EXTUBATED. Anesthesia: GETA Surgeon: Jc More MD Estimated blood loss (mL): 20 Complications: No immediate complications Condition: stable Disposition: PACU
[2020-11-23 10:18] LABS: Glucose Point of Care 127 (65-105)
--- NOTE | 2020-11-23 12:58 | SUR.PHASEII ---
ASSISTED WITH DRESSING.
== END 2020-11-23 12:15 | disposition home or self-care (01) ==
PROVIDERS: PCP Internal Medicine; Visit Provider Orthopaedic Surgery
PROC: (CPT 23420; principal; 2020-11-23 07:30)
DX: M75.102 Unspecified rotator cuff tear or rupture of left shoulder, not specified as traumatic (principal); E11.9 Type 2 diabetes mellitus without complications; G89.18 Other acute postprocedural pain; E78.5 Hyperlipidemia, unspecified; K21.9 Gastro-esophageal reflux disease without esophagitis; K76.0 Fatty (change of) liver, not elsewhere classified; M47.817 Spondylosis without myelopathy or radiculopathy, lumbosacral region; M16.0 Bilateral primary osteoarthritis of hip; E11.65 Type 2 diabetes mellitus with hyperglycemia; Z79.4 Long term (current) use of insulin; Z98.1 Arthrodesis status; Z79.82 Long term (current) use of aspirin; Z87.891 Personal history of nicotine dependence; K80.80 Other cholelithiasis without obstruction; M25.512 Pain in left shoulder
CPT/HCPCS: 64415; 23412; 82948; 93005; A9270; C9803; J0330; J0690; J2250; J2370; J2405; J2704; J3010; J7120; U0003; U0005

== ENCOUNTER 2021-02-06 12:20 | Observation (INO) | payer OTHER, SELFPAY ==
[2021-02-06] VITALS (12 sets, daily range): BP systolic 129–174; BP diastolic 77–98; PULSE 87–103; RESP 14–18; TEMP 36.2–36.6; O2SAT 98–100; BMI 26.4
--- NOTE | ~2021-02-06 | XR_ITS ---
EXAMINATION: XR chest 2V DATE: 02/06/2021 12:44 INDICATION: Right-sided chest pain TECHNIQUE: PA and lateral views of the chest are obtained. COMPARISON: None available FINDINGS: There is a possible nodule of the left lung lower lobe. There is no pleural effusion or pne umothorax. The cardiomediastinal silhouette is normal. There is mild thoracic spondylosis. There are changes of anterior fusion at the cervicothoracic junction. There is mild thoracic dextrocurvature. IMPRESSION: 1. Possible left lower lobe nodule. Further evaluation with CT of the chest is recommended. Reviewed, dictated and finalized at location B.
--- NOTE | 2021-02-06 12:27 | ECG_ITS ---
Measurements Intervals [place] Rate: 100 P: 46 AK: 155 QRS: 14 QRSD: 81 T: 50 QT: 315 QTc: 407 Interpretive Statements SINUS TACHYCARDIA DELAYED PRECORDIAL R/S TRANSITION VOLTAGE CRITERIA FOR LVH BORDERLINE ECG Electronically Signed On 02-06-2021 13:02:57 CDT by Adin Davidson D.O.
[2021-02-06 12:58] LABS: Basophils Absolute Auto 0.1 K/mm3 (0.0-0.1); Basophils Percent Auto 1.2 % (0.2-1.2); Eosinophils Absolute Auto 0.1 K/mm3 (0-0.3); Eosinophils Percent Auto 2.9 % (0-4.4); Hematocrit 45.5 % (37.0-47.0); Hemoglobin 15.2 g/dL (12.0-15.0); Immature Granulocyte Absolute 0.01 K/mm3 (0.00-0.031); Immature Granulocyte Percent A 0.2 % (0-0.5); Lymphocytes Absolute Auto 1.72 K/mm3 (0.9-3.2); Lymphocytes Percent Auto 42.3 % (18.3-44.2); Mean Corpuscular HGB Conc 33.4 g/dl (32-36); Mean Corpuscular Hemoglobin 28.4 pg (26-34); Mean Corpuscular Volume 84.9 fl (80-100); Mean Platelet Volume 9.2 fl (7.4-10.4); Monocytes Absolute Auto 0.3 K/mm3 (0.1-0.6); Monocytes Percent Auto 6.6 % (2.6-8.5); Neutrophils Absolute Auto 1.9 K/mm3 (1.3-6.7); Neutrophils Percent Auto 46.8 % (45.5-73.1); Platelet Count Result 295 k/mm3 (150-375); Red Blood Count 5.36 M/mm3 (4.2-5.4); Red Cell Distribution Width 12.8 % (11.5-14.5); White Blood Count 4.1 K/mm3 (4.5-10.0)
[2021-02-06 13:13] LABS: INR 0.8; Prothrombin Time 11.9 Seconds (11.1-14.7)
[2021-02-06 13:26] LABS: Anion Gap 9 mmol/L (8-16); Blood Urea Nitrogen 9 mg/dL (7-17); Calcium 10.7 mg/dL (8.4-10.2); Carbon Dioxide 29 mmol/L (22-30); Chloride 105 mmol/L (98-107); Estimated CRCL calculation 69 ml/min; Estimated Glomerular Filt Rate > 60; Glucose 149 mg/dL (65-105); Potassium 4.1 mmol/L (3.4-5.0); Sodium 143 mmol/L (137-145)
[2021-02-06 13:38] LABS: Troponin I < 0.012 ng/mL (0.000-0.034)
--- NOTE | 2021-02-06 14:00 | ED.CHESTPAIN ---
HPI - Chest Pain General Chief Complaint: Chest Pain Stated Complaint: CP Time Seen by Provider: 02/06/21 13:54 Source: RN notes reviewed History of Present Illness HPI narrative: Patient presents emergency department from home for chest pain. Patient states pain is located in the right side the chest and does not radiate described as aching in nature. Patient states pain began approximately 3 hours ago. States that she was sitting when the pain began she denies any fevers or chills, shortness of breath, nausea, vomiting, diarrhea or any other symptoms. States nothing makes the pain feel better or worse. Denies taking any medication for the pain Related Data Home Medications Medication Instructions Recorded Confirmed aspirin 81 mg tablet,delayed 81 mg PO DAILY 08/26/19 01/21/21 release Toujeo Max U-300 SoloStar 30 unit SUB-Q HS 11/20/20 01/21/21 calcium 600 mg PO DAILY 11/20/20 01/21/21 cholecalciferol (vitamin D3) 25 mcg PO DAILY 11/20/20 01/21/21 [Vitamin D3] omeprazole 20 mg PO DAILY 11/20/20 01/21/21 Allergies Allergy/AdvReac Type Severity Reaction Status Date / Time No Known Allergies Allergy Verified 02/06/21 14:25 Review of Systems Review of Systems: Narrative: Gen.: Denies fevers or chills ENT: Denies congestion Respiratory: Denies shortness of breath or cough CV: See HPI GI: Denies abdominal pain nausea, emesis or diarrhea Musculoskeletal: Denies back pain or muscle pain Neuro: Denies numbness, tingling, weakness or focal weakness Skin: Denies rash Except as documented, all other systems reviewed and negative [facility] Past Medical History Medical History Diabetes Dyslipidemia associated with type 2 diabetes mellitus Essential hypertension Gallstones GERD (gastroesophageal reflux disease) Hepatic steatosis Left shoulder pain Lumbar spondylolysis Osteoarthritis of spine with radiculopathy, lumbosacral region Osteoarthrosis, hip Overweight (BMI 25.0-29.9) Post-menopausal Rotator cuff tear, left Ruptured intervertebral disc Sciatica of left side Sensorineural hearing loss (SNHL) of left ear Tobacco use Type 2 diabetes mellitus with hyperglycemia, with long-term current use of insulin Surgical History Surgical History H/O spinal fusion Hx of section Hx of cholecystectomy Family History Family History Sibling Diabetes mellitus Family history of thyroid disease Hypertension Father Family history of congestive heart failure Diabetes mellitus Hypertension Other Family history of arthritis Social History Social History Years smoked: 20 Tobacco type: cigarettes Smoking end date: 08/10/10 Alcohol intake: never Substance use: never Substance use type: does not use Spiritual care concerns: No Exam Narrative: Exam Narrative: APPEARANCE: No acute distress, nontoxic, resting in bed HEENT: Normocephalic, atraumatic, OMM RESPIRATORY: No respiratory distress, clear to auscultation bilaterally with no rhonchi wheezing or rales CARDIOVASCULAR: RRR s murmur ABDOMINAL: Soft, nondistended, tender to palpation epigastric region, no tenderness in right upper quadrant, left upper quadrant, right lower quadrant and left lower quadrant no rebound or guarding MUSCULOSKELETAl: Moves all extremities. No clubbing, cyanosis or edema. NEURO: Awake and alert. Following commands, speech normal, no focal deficits SKIN:: Warm, dry. Normal Color PSYCHIATRIC: Normal affect/mood Course Course Emergency Course: Patient states chest pain is resolved at this time : Discussed with SHU Alvarado for Dr. Vallejo presentation work-up recommends admission at this time hospitalist service with cardiology to consult Discussed with VALENTINE Perez for Dr. Cooper presentation wor
[2021-02-06] MEDS: ASPIRIN 81 MG CHEWABLE TABLET 324 MG PO (14:09)
[2021-02-06 14:23] LABS: Alanine Aminotransferase 41 U/L (4-35); Albumin Level 4.9 g/dL (3.5-5.1); Alkaline Phosphatase 84 U/L (38-126); Aspartate Amino Transferase 48 U/L (14-36); Bilirubin,Total 0.8 mg/dL (0.2-1.3); Lipase 92 U/L (23-300)
[2021-02-06 14:26] LABS: D Dimer 0.27 ug/mL (<0.48)
[2021-02-06] MEDS: KETOROLAC 30 MG/ML VIAL (*BKC) IV PUSH (15:21)
[2021-02-06 16:20] LABS: Troponin I < 0.012 ng/mL (0.000-0.034)
--- NOTE | 2021-02-06 17:49 | ADMGEN ---
This patient, Clare Rodriguez, was admitted to IMU Room 202-01. Patient/family oriented to hospital policies and general routines including ID bracelet, bed and alarms, visiting hours, pain management, procedures, bathroom and other care routines, personal items, smoking policy, room service/diet, and visiting hours. Information on how to activate the Rapid Response Team has been discussed. Patient/Family are encouraged to report perceived risks to care and to ask questions if they do not understand what they are told or what they should do.
[2021-02-06 18:54] LABS: Troponin I < 0.012 ng/mL (0.000-0.034)
[2021-02-06 22:23] LABS: Glucose Point of Care 158 mg/dl (65-105)
[2021-02-07] VITALS (9 sets, daily range): BP systolic 120–131; BP diastolic 63–71; PULSE 73–105; RESP 16–20; TEMP 35.6–36.4; O2SAT 96–100
--- NOTE | 2021-02-07 02:29 | PM.IMHP ---
H&P: HPI History of Present Illness Date/Time: 02/07/21 02:29 Chief Complaint: chest pain Narrative: 60-year-old female with past medical history of hypertension, well-controlled diabetes mellitus, and hyperlipidemia who presented to the ER via private vehicle due to chest pain. The patient reports that as she was getting out of bed she developed right-sided chest pain. Chest pain did not seem to vary with activity. She had no improvement in her symptoms. The symptoms have been ongoing for a couple of hours when she presented to the ER. She denied any radiation of the pain. Pain was in the right upper chest. She did not notice any change with palpation. She does admit that she has been using her right arm and shoulder more than usual because she recently had a left rotator cuff repair. She manage this to stay relatively active doing a lot of housework despite her recent surgery. She has not been having any shortness of breath orthopnea, paroxysmal nocturnal dyspnea or lower extremity swelling. She has not noticed any palpitations or tachycardia. Her blood pressures on presentation to the ER Were brief is elevated but improved after her pain improved. She denies any nausea or diaphoresis was onset of chest pain. She has not had any cough or congestion. She received both of her COVID vaccines. Her last hemoglobin A1c within the last month or so was around 7.. Review of Systems Review of Systems: Narrative: 12 systems were reviewed with pertinent positives and negatives per HPI. Except as documented in the HPI, all other systems were reviewed and are negative. [facility] Past Medical History Medical History (Updated 02/07/21 @ 05:04 by Shefali Llanos DO) Dyslipidemia associated with type 2 diabetes mellitus Essential hypertension GERD (gastroesophageal reflux disease) Hepatic steatosis Lumbar spondylolysis Osteoarthritis of spine with radiculopathy, lumbosacral region Osteoarthrosis, hip Overweight (BMI 25.0-29.9) Post-menopausal Ruptured intervertebral disc Sciatica of left side Sensorineural hearing loss (SNHL) of left ear Type 2 diabetes mellitus with hyperglycemia, with long-term current use of insulin Surgical History Surgical History (Updated 02/07/21 @ 04:49 by Shefali Llanos DO) H/O spinal fusion History of repair of left rotator cuff (11/23/20) Hx of section x4 Hx of cholecystectomy Family History Family History Sibling Diabetes mellitus Hypertension Thyroid disease Father Diabetes mellitus Hypertension CHF (congestive heart failure) Other Family history of arthritis Social History Social History (Updated 02/07/21 @ 05:01 by Shefali Llanos DO) Social History: she lives at home with her . They have been together 34 years new been 21 years. They have total of 5 children who overall healthy. Her youngest daughter has lupus. she has a total of 24 grand children. She smoked 1 pack of cigarettes per week but quit smoking in 2007. She does not drink alcohol. 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 Primary care provider: Dr. Shakir Giron code status: Full code surrogate decision maker: Smoking packs per day: 0.25 Smoking cigarettes per day: 5.0 Years smoked: 30 Smoking pack-years: 7.50 Smoking status: Former smoker Tobacco type: cigarettes Smoking end date: 08/10/10 Alcohol intake: never Substance use: never Substance use type: does not use Gender identity (if verbalized by the patient): Female Sexual Orientation (if Verbalized by the Patient): Straight or Heterosexual Spiritual care concerns: No Meds Home Medications and Allergies Home Medications Medication Instructions Recorded Confirmed Type aspirin 81 mg tablet,delayed 81 mg PO DAILY 08/26/19 02/06/21 History release insulin lispro 100 unit/mL 15 unit HAWKINS
[2021-02-07 05:09] LABS: Basophils Absolute Auto 0.1 K/mm3 (0.0-0.1); Eosinophils Absolute Auto 0.1 K/mm3 (0-0.3); Eosinophils Percent Auto 2.6 % (0-4.4); Hemoglobin 13.5 g/dL (12.0-15.0); Immature Granulocyte Absolute 0.02 K/mm3 (0.00-0.031); Immature Granulocyte Percent A 0.4 % (0-0.5); Lymphocytes Absolute Auto 2.34 K/mm3 (0.9-3.2); Lymphocytes Percent Auto 47.4 % (18.3-44.2); Mean Corpuscular HGB Conc 32.9 g/dl (32-36); Mean Corpuscular Hemoglobin 28.6 pg (26-34); Mean Corpuscular Volume 86.9 fl (80-100); Mean Platelet Volume 9.3 fl (7.4-10.4); Monocytes Absolute Auto 0.4 K/mm3 (0.1-0.6); Monocytes Percent Auto 7.7 % (2.6-8.5); Neutrophils Percent Auto 40.9 % (45.5-73.1); Platelet Count Result 254 k/mm3 (150-375); Red Blood Count 4.72 M/mm3 (4.2-5.4); Red Cell Distribution Width 12.8 % (11.5-14.5); White Blood Count 4.9 K/mm3 (4.5-10.0)
[2021-02-07 05:25] LABS: Alanine Aminotransferase 36 U/L (4-35); Albumin Level 4.3 g/dL (3.5-5.1); Alkaline Phosphatase 76 U/L (38-126); Anion Gap 7 mmol/L (8-16); Aspartate Amino Transferase 35 U/L (14-36); Bilirubin,Total 0.8 mg/dL (0.2-1.3); Blood Urea Nitrogen 13 mg/dL (7-17); Calcium 9.7 mg/dL (8.4-10.2); Carbon Dioxide 28 mmol/L (22-30); Chloride 103 mmol/L (98-107); Estimated CRCL calculation 81 ml/min; Estimated Glomerular Filt Rate > 60; Glucose 124 mg/dL (65-105); Potassium 3.5 mmol/L (3.4-5.0); Sodium 138 mmol/L (137-145)
[2021-02-07 08:46] LABS: Glucose Point of Care 112 mg/dl (65-105)
--- NOTE | 2021-02-07 09:00 | PM.CNCAR ---
Assessment and Plan Additional Plan Chest pain history of hypertension history of diabetes history of hyperlipidemia atypical chest pain. Most likely musculoskeletal. Patient had left rotator cuff surgery November 2020 and has been hurting since that time and she has been relying on the right arm and the right shoulder to do all the work. Troponins negative. EKG looks normal. Chest pain resolved. No arrhythmias on telemetry. will arrange for patient to be discharged home today. will arrange for outpatient stress testing exercise nuclear to be done in the next 2-3 weeks. continue aspirin. History of Present Illness History of Present Illness Consult date/time: 02/07/21 0900 date of service February 07, 2021 Requesting physician: Louis Blackwood DO Consult reason: chest pain Reason For Visit: chest pain Narrative: this 60-year-old female with past history of hypertension, diabetes who never smoked cigarettes and does not drink alcohol and presents to the hospital with right-sided chest pain. Apparently woke up in the morning and took shower and then suddenly started to have sharp and dull chest pain involving the right chest that persisted until she came into the emergency room. No aggravating or relieving factors and no radiation. Denies shortness of breath, lower edema, dizziness, syncope, palpitations. She had rotator cuff surgery on the left shoulder has been hurting her so bad and she has been relying on the right shoulder and the right arm to Do all the work. she thinks that caused probably muscle spasm.. EKG Reviewed And analyzed myselfmyself shows normal sinus rhythm. troponins x3 negative. Chest x-ray reviewed and analyzed myself shows left lower lobe nodule possibly. Review of Systems Constitutional: Constitutional: Denies chills, Denies fever(s) and Denies poor appetite Eyes: Eyes: Denies eye discharge, Denies loss of vision, Denies eye pain and Denies photophobia ENT: Denies dizziness, Denies epistaxis, Denies nasal congestion and Denies sore throat Cardiovascular: Cardiovascular: Reports chest pain, Denies syncope, Denies pedal edema, Denies leg edema, Denies palpitations, Denies dyspnea, Denies dyspnea on exertion and Denies orthopnea Respiratory: Respiratory: Denies cough, Denies dyspnea, Denies dyspnea on exertion and Denies wheezing Gastrointestinal: Gastrointestinal: Denies abdominal pain, Denies diarrhea, Denies nausea and Denies vomiting Genitourinary: Genitourinary: Denies hematuria, Denies genital lesions and Denies dysuria Musculoskeletal: Musculoskeletal: Reports arthralgias, Denies joint swelling and Denies numbness Integumentary/Breasts: Skin/Breast: Denies pruritus and Denies rash Neurologic: Denies dizziness, Denies syncope, Denies loss of vision and Denies numbness Psychiatric: Psychiatric: Denies anxiety and Denies depression Endocrine: Endocrine: Denies cold intolerance, Denies heat intolerance and Denies palpitations Hematologic/Lymphatic: Hematologic/Lymphatic: Denies easy bleeding and Denies easy bruising Allergic/Immunologic: Allergic/Immunologic: Denies urticaria and Denies wheezing PMFSH Past Medical History Medical History COVID-19 vaccine series completed (~12/2020) Dyslipidemia associated with type 2 diabetes mellitus Essential hypertension GERD (gastroesophageal reflux disease) Hepatic steatosis Lumbar spondylolysis Osteoarthritis of spine with radiculopathy, lumbosacral region Osteoarthrosis, hip Overweight (BMI 25.0-29.9) Post-menopausal Ruptured intervertebral disc Sciatica of left side Sensorineural hearing loss (SNHL) of left ear Type 2 diabetes mellitus with hyperglycemia, with long-term current use of insulin Surgical History Surgical History H/O spinal fusion History of repair of left rotator cuff (11/23/20) Hx of section x4 Hx of cholec
[2021-02-07] MEDS: ASPIRIN 81 MG ENTERIC TABLET PO (09:36)
[2021-02-07] MEDS: CHOLECALCIFEROL 1,000 UNITS TABLET 1000 UNITS PO (09:36)
[2021-02-07] MEDS: LOSARTAN POTASSIUM 50 MG TABLET PO (09:36)
[2021-02-07] MEDS: PANTOPRAZOLE 40 MG TABLET PO (09:36)
[2021-02-07] MEDS: amLODIPine BESYLATE 5 MG TABLET PO (09:36)
[2021-02-07] MEDS: carvediloL 3.125 MG TABLET PO (09:36)
[2021-02-07] MEDS: CALCIUM CARBONATE (OSCAL) 500 MG TABLET PO (09:36)
[2021-02-07] MEDS: metFORMIN HCL 500 MG TABLET 1000 MG PO (09:36)
--- NOTE | 2021-02-07 10:31 | PM.DS ---
DS: Admitting Diagnosis Admitting Diagnosis Admitting Diagnosis: Chest pain DS: Discharge Diagnosis Discharge Diagnosis (1) Chest pain: Qualifiers: Chest pain type: unspecified Qualified Code(s): R07.9 - Chest pain, unspecified Code(s): R07.9 - Chest pain, unspecified Status: Acute Assessment and Plan: Date of Admission 02/06/21 Date of Discharge 02/07/21 Ms. Rodriguez is a pleasant 60yo F with hypertension and insulin-dependent type 2 diabetes mellitus who presented to the ED for evaluation of chest pain. She described a right-sided chest pain that was ongoing for about 2 hours prior to admission Without relief. She did finally get some relief from IV Toradol. It is noted that she underwent left rotator cuff repair with Dr. More earlier this year in November. She is left-handed and has been compensating with her right side during her recovery. troponins negative x3. EKG is normal. Chest pain is resolved with Toradol. No arrhythmias are noted on telemetry. Given her risk factors for coronary artery disease, Cardiology was consulted by the ED provider and she was admitted for observation overnight. She was evaluated by Cardiology, Dr Greene, who recommends outpatient follow-up with a stress test. ACS is not suspected. Overall, it was felt that her pain is musculoskeletal in nature and may be related to compensating with her right arm given her left arm injury. She is hemodynamically stable for discharge on 02/07/2021 with instructions to follow-up with Cardiology and PCP. She was educated on return to ER instructions. (2) Type 2 diabetes mellitus with hyperglycemia, with long-term current use of insulin: Code(s): E11.65 - Type 2 diabetes mellitus with hyperglycemia; Z79.4 - buttermaker continuous churn (current) use of insulin Status: Chronic Assessment and Plan: Stable. A1c 7.2% 10/12/2020. continue home regimen. (3) Essential hypertension: Code(s): I10 - Essential (primary) hypertension Status: Chronic Assessment and Plan: Stable on her home antihypertensives. DS: Summary Hospital Course Hospital Course: See above Time Spent with Patient Time attestation: Total time spent providing and/or coordinating discharge services: 35 minutes Exam Narrative: Exam Narrative: General: Female independently ambulating in her room in no acute distress. HEENT: Normocephalic, EOMI, oral mucosa moist. Cardiovascular: Rate and rhythm are regular. No notable murmur, rub, or gallop appreciated. Respiratory: Lungs clear to auscultation bilaterally. Respirations even and non-labored. Tolerating room air. Abdomen: Soft, non-tender, non-distended, bowel sounds present. Extremities: Peripheral pulses intact. No edema Or pain to palpation. Neuro: Awake and alert; answering questions appropriately. No focal neurological deficits. Speech is clear. DS: Data Data Completed and Pending Labs on day of discharge: Last Vital Signs Temp 96.1 F L 02/07/21 08:33 Pulse 105 H 02/07/21 10:00 Resp 18 02/07/21 08:33 BP 125/63 02/07/21 08:33 Pulse Ox 96 02/07/21 10:37 ITS Impressions Chest X-Ray 02/06/21 12:48 IMPRESSION: 1. Possible left lower lobe nodule. Further evaluation with CT of the chest is recommended. Laboratory Tests 02/07/21 04:28 02/07/21 04:28 Discharge Plan Discharge Attending physician on discharge: Landry Collins V. Consulting providers: Nicki Vallejo ; Ozzy Lara ; Bhanu Greene ; Adin Davidson ; Shefali Llanos ; Monika Sevilla Discharging Clinician: Monika Sevilla Anticipated Discharge Date/Time: 02/07/21 11:18 Patient Disposition: Home, Self-Care Activity: as tolerated Diet: as tolerated Discharge Instructions: Please call to schedule hospital
== END 2021-02-07 12:05 | disposition home or self-care (01) ==
LOC: ANHED 16:56 → ANHIMU 17:24
PROVIDERS: Emergency Medicine; Physician Assistant; Admitting Provider Internal Medicine; Emergency Provider Emergency Medicine; PCP Internal Medicine; Visit Provider Internal Medicine
DX: R07.9 Chest pain, unspecified (principal); E11.65 Type 2 diabetes mellitus with hyperglycemia; I10 Essential (primary) hypertension; E78.5 Hyperlipidemia, unspecified; K21.9 Gastro-esophageal reflux disease without esophagitis; K76.0 Fatty (change of) liver, not elsewhere classified; M47.816 Spondylosis without myelopathy or radiculopathy, lumbar region; Z98.1 Arthrodesis status; Z87.891 Personal history of nicotine dependence; Z79.4 Long term (current) use of insulin; Z79.82 Long term (current) use of aspirin
CPT/HCPCS: 36415; 71046; 80048; 80053; 80076; 82948; 83690; 84484; 85025; 85380; 85610; 85730; 93005; 96374; 99285; A9270; G0378; J1885

== ENCOUNTER 2021-02-21 08:28 | Outpatient (CLI) | payer OTHER, SELFPAY ==
[2021-02-21 09:41] LABS: Hemoglobin A1C 7.8 % (<5.7)
[2021-02-21 09:59] LABS: Creatinine Urine 97.2 mg/dL
[2021-02-21 10:04] LABS: MALB Creatinine Ratio 18.1 mg/g (0-30); Microalbumin Urine Random 17.6 mg/L (0-16.7)
== END 2021-02-21 08:29 | disposition home or self-care (01) ==
PROVIDERS: PCP Internal Medicine; Visit Provider Internal Medicine
DX: E11.65 Type 2 diabetes mellitus with hyperglycemia (principal); E78.5 Hyperlipidemia, unspecified; Z79.4 Long term (current) use of insulin
CPT/HCPCS: 36415; 82043; 83036; 84443

== ENCOUNTER 2021-03-01 13:41 | Outpatient (CLI) | payer OTHER, SELFPAY ==
--- NOTE | ~2021-03-01 | CT_ITS ---
EXAMINATION: CT lung screening DATE: 03/01/2021 13:58 INDICATION: Personal history of tobacco dependence, current smoker with 30 pack year history TECHNIQUE: Computed tomography (CT) of the chest was performed without intravenous contrast. The dose -length product (DLP) was 142.34 mGy-cm. 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 COMPARISON: 06/08/2017 FINDINGS: There is a stable 3 mm nodule of the lingula. The lungs are free of acute opacities. There is no pleural effusion or pneumothorax. No pathologically enlarged thoracic lymph nodes are identifie d. The heart size is normal. Calcified coronary artery atherosclerosis is noted. The liver is diffuse ly low in attenuation when compared with the spleen, consistent with hepatic steatosis. There is mode rate thoracic spondylosis. Changes of anterior fusion procedure are noted in the lower cervical spine . IMPRESSION: 1. Lung-RADS category 2: Benign appearance or behavior. Continue annual screening with noncontrast lo w-dose chest CT in 12 months. Reviewed, dictated and finalized at location B. IMPRESSION: 1. Lung-RADS category 2: Benign appearance or behavior. Continue annual screeni ng with noncontrast low-dose chest CT in 12 months.
== END 2021-03-01 13:42 | disposition home or self-care (01) ==
PROVIDERS: PCP Internal Medicine; Visit Provider Internal Medicine
DX: R91.1 Solitary pulmonary nodule (principal); Z87.891 Personal history of nicotine dependence
CPT/HCPCS: 71271

== ENCOUNTER 2021-10-04 08:13 | Outpatient (CLI) | payer OTHER, SELFPAY ==
[2021-10-04 09:06] LABS: Basophils Percent Auto 0.9 % (0.2-1.2); Eosinophils Absolute Auto 0.2 K/mm3 (0-0.3); Eosinophils Percent Auto 4.4 % (0-4.4); Hematocrit 43.7 % (37.0-47.0); Hemoglobin 14.3 g/dL (12.0-15.0); Immature Granulocyte Absolute 0.01 K/mm3 (0.00-0.031); Immature Granulocyte Percent A 0.2 % (0-0.5); Lymphocytes Percent Auto 34.6 % (18.3-44.2); Mean Corpuscular HGB Conc 32.7 g/dl (32-36); Mean Corpuscular Hemoglobin 28.9 pg (26-34); Mean Corpuscular Volume 88.3 fl (80-100); Mean Platelet Volume 9.3 fl (7.4-10.4); Monocytes Absolute Auto 0.4 K/mm3 (0.1-0.6); Monocytes Percent Auto 8.3 % (2.6-8.5); Neutrophils Absolute Auto 2.2 K/mm3 (1.3-6.7); Neutrophils Percent Auto 51.6 % (45.5-73.1); Platelet Count Result 283 k/mm3 (150-375); Red Blood Count 4.95 M/mm3 (4.2-5.4); Red Cell Distribution Width 13.1 % (11.5-14.5); White Blood Count 4.3 K/mm3 (4.5-10.0)
[2021-10-04 09:16] LABS: Alanine Aminotransferase 51 U/L (4-35); Albumin Level 4.5 g/dL (3.5-5.1); Alkaline Phosphatase 95 U/L (38-126); Anion Gap 6 mmol/L (8-16); Aspartate Amino Transferase 37 U/L (14-36); Bilirubin,Total 1.1 mg/dL (0.2-1.3); Blood Urea Nitrogen 9 mg/dL (7-17); Calcium 9.5 mg/dL (8.4-10.2); Carbon Dioxide 29 mmol/L (22-30); Chloride 103 mmol/L (98-107); Cholesterol 183 mg/dL (0-200); Estimated Glomerular Filt Rate > 60; Glucose 107 mg/dL (65-110); HDL Direct 61 mg/dL; Potassium 4.1 mmol/L (3.4-5.0); Sodium 138 mmol/L (137-145); Triglycerides 93 mg/dL (<150)
[2021-10-04 09:27] LABS: LDL Cholesterol Direct 87 mg/dL
[2021-10-04 09:31] LABS: Creatinine Urine 44.8 mg/dL
[2021-10-04 09:36] LABS: MALB Creatinine Ratio 28.8 mg/g (0-30); Microalbumin Urine Random 12.9 mg/L (0-16.7)
[2021-10-04 09:46] LABS: Vitamin D 25 Hydroxy 27.5 ng/mL
[2021-10-04 10:12] LABS: Hemoglobin A1C 6.9 % (<5.7)
== END 2021-10-04 08:14 | disposition home or self-care (01) ==
LOC: ANHLAB 08:16
PROVIDERS: PCP Internal Medicine; Visit Provider Internal Medicine
DX: E11.65 Type 2 diabetes mellitus with hyperglycemia (principal); E11.69 Type 2 diabetes mellitus with other specified complication; I10 Essential (primary) hypertension; Z79.4 Long term (current) use of insulin; E78.2 Mixed hyperlipidemia
CPT/HCPCS: 36415; 80053; 80061; 82043; 82306; 83036; 84443; 85025

== ENCOUNTER 2022-01-11 07:43 | Outpatient (CLI) | payer OTHER, SELFPAY ==
--- NOTE | ~2022-01-11 | MR_ITS ---
EXAMINATION: MR shoulder RT wo con DATE: 01/11/2022 08:43 INDICATION: Generalized shoulder pain for 5 months, no history of trauma. TECHNIQUE: Magnetic resonance imaging (MRI) of the right shoulder was performed without intravenous c ontrast. Sequences included axial PD-weighted FS FSE, coronal oblique PD-weighted FS FSE and T2-weigh nico FS FSE, and sagittal oblique T2-weighted FS FSE and T1-weighted FSE. COMPARISON: X-ray right shoulder 06/25/2020 FINDINGS: Coracoacromial arch: Curved acromial undersurface (type II). Mild inferiorly directed acromial tip enthesopathy anteriorly . Mild AC joint hypertrophy. Rotator cuff: Mild thickening and abnormal signal within the distal cuff. Longitudinally oriented hyperintense sign al within the infraspinatus tendon. Teres minor and subscapularis are intact. Biceps tendon and glenoid labrum: Intact. Fluid: Mild subacromial subdeltoid fluid. Small volume glenohumeral joint fluid. Bones/cartilage: Glenohumeral cartilage thinning. Marrow signal is benign. IMPRESSION: 1. Interstitial type tear of the infraspinatus in a background of superior cuff tendinopathy. 2. Mild glenohumeral osteoarthritis. 3. Subacromial/subdeltoid bursitis. Reviewed, dictated and finalized at location K.
== END 2022-01-11 07:44 ==
PROVIDERS: PCP Internal Medicine; Visit Provider Orthopaedic Surgery
DX: M19.011 Primary osteoarthritis, right shoulder (principal); M75.51 Bursitis of right shoulder
CPT/HCPCS: 73221

== ENCOUNTER 2022-02-04 09:46 | Outpatient (CLI) | payer OTHER, SELFPAY ==
--- NOTE | ~2022-02-04 | MR_ITS ---
EXAMINATION: MR lumbar spine wo con DATE: 02/04/2022 10:27 INDICATION: Lumbar radiculopathy TECHNIQUE: Magnetic resonance imaging (MRI) of the lumbar spine was performed without intravenous con trast. Sequences included sagittal T2-weighted FSE, sagittal T2-weighted FS FSE, sagittal T1-weighted FSE, and axial T2-weighted FSE. COMPARISON: Radiographs dated 05/20/2018 FINDINGS: Alignment is normal. Likely physiologic minimal anterior wedging at T11. Remaining vertebral body hei ghts are normal. Normal marrow signal. Mild to moderate disc height loss at L3-L4. Annular fissure w ithout disc desiccation or disc height loss at L5-S1. Remaining discs in the lumbar and visualized lo wer thoracic spine demonstrate normal height and signal.. The conus medullaris terminates at L1. Ther e is normal signal in the caudal spinal cord. 11 mm T2 hyperintense left renal cyst. Paravertebral so ft tissues are unremarkable. The following disc levels are specifically discussed: T12-L1: The disc does not extend beyond the endplate margin. There is moderate bilateral facet joint osteoarthritis. There is no neural foraminal stenosis. There is no central canal stenosis. L1-L2: The disc does not extend beyond the endplate margin. There is mild to moderate bilateral facet joint osteoarthritis. There is no neural foraminal stenosis. There is no central canal stenosis. L2-L3: The disc does not extend beyond the endplate margin. There is mild to moderate bilateral facet joint osteoarthritis. There is no neural foraminal stenosis. There is no central canal stenosis. L3-L4: Disc is mildly bulging. There is hypertrophy of the ligamentum flavum. There is mild right and severe left facet joint osteoarthritis. There is mild bilateral neural foraminal stenosis. There is mild central canal stenosis. L4-L5: Disc is mildly bulging. There is moderate right and mild to moderate left facet joint osteoart hritis. There is mild bilateral neural foraminal stenosis. There is no central canal stenosis. L5-S1: Disc is mildly bulging. There is right and mild to moderate left facet joint osteoarthritis. T here is mild right neural foraminal stenosis. There is no central canal stenosis. IMPRESSION: 1. Mild to moderate spondylosis at L3-L4. Otherwise mild lumbar spondylosis. Reviewed, dictated and finalized at location A.
== END 2022-02-04 09:47 ==
LOC: MICIMG 09:47
PROVIDERS: PCP Internal Medicine; Visit Provider Nurse Practitioner Family
DX: M47.26 Other spondylosis with radiculopathy, lumbar region (principal)
CPT/HCPCS: 72148

== ENCOUNTER 2022-03-19 10:21 | Outpatient (CLI) | payer OTHER, SELFPAY ==
[2022-03-19 11:22] LABS: Alanine Aminotransferase 63 U/L (6-35); Albumin Level 4.6 g/dL (3.5-5.1); Alkaline Phosphatase 91 U/L (38-126); Anion Gap 11 mmol/L (8-16); Aspartate Amino Transferase 68 U/L (14-36); Bilirubin,Total 0.7 mg/dL (0.2-1.3); Blood Urea Nitrogen 9 mg/dL (7-17); Carbon Dioxide 27 mmol/L (22-30); Chloride 102 mmol/L (98-107); Cholesterol 217 mg/dL (0-200); Estimated Glomerular Filt Rate > 60; Glucose 223 mg/dL (65-110); HDL Direct 51 mg/dL; Hemoglobin A1C 7.1 % (<5.7); Potassium 4.4 mmol/L (3.4-5.0); Sodium 140 mmol/L (137-145); Triglycerides 200 mg/dL (<150)
[2022-03-19 11:33] LABS: LDL Cholesterol Direct 114 mg/dL
[2022-03-19 12:57] LABS: Creatinine Urine 38.9 mg/dL
[2022-03-19 13:14] LABS: MALB Creatinine Ratio < 15.4 mg/g (0-30); Microalbumin Urine Random < 6.0 mg/L (0-16.7)
== END 2022-03-19 10:22 | disposition home or self-care (01) ==
LOC: ANHLAB 10:23
PROVIDERS: PCP Internal Medicine; Visit Provider Internal Medicine
DX: E11.65 Type 2 diabetes mellitus with hyperglycemia (principal); E11.69 Type 2 diabetes mellitus with other specified complication; E78.5 Hyperlipidemia, unspecified; Z79.4 Long term (current) use of insulin
CPT/HCPCS: 36415; 80053; 80061; 82043; 83036

== ENCOUNTER 2022-07-17 15:29 | Outpatient (CLI) | payer OTHER, SELFPAY ==
--- NOTE | ~2022-07-17 | MM_ITS ---
EXAMINATION: MM screening erlinda BI w dillon HISTORY: Screening mammogram TECHNIQUE: Craniocaudal and mediolateral oblique 3-D tomosynthesis images were obtained and synthetic 2-D images were generated. CAD analysis was submitted and interpreted. COMPARISON: No prior mammogram is available for comparison at this institution. BREAST PARENCHYMAL COMPOSITION: There are scattered areas of fibroglandular density. FINDINGS: RIGHT BREAST: There are indeterminate calcifications in the middle third of the upper outer quadrant of the breast. LEFT BREAST: No suspicious mass, calcification, or architectural distortion are identified to suggest malignancy. IMPRESSION: 1. Right breast calcifications which may represent the patient's baseline however no comparison is cu rrently available. 2. Comparison with prior mammograms is necessary. BI-RADS Category 0: Incomplete: Needs comparison with prior mammograms. Reviewed, dictated and finalized at location A. INUM SIDING APPLICATOR IMPRESSION: 1. Right breast calcifications which may represent the patient's baseline howev er no comparison is currently available. 2. Comparison with prior mammograms is necessary. BI-RADS Category 0: Incomplete: Needs comparison with prior mammograms.
== END 2022-07-17 15:30 | disposition home or self-care (01) ==
PROVIDERS: PCP Internal Medicine; Visit Provider Internal Medicine
DX: Z12.31 Encounter for screening mammogram for malignant neoplasm of breast (principal); R91.8 Other nonspecific abnormal finding of lung field
CPT/HCPCS: 77063; 77067

== ENCOUNTER 2022-10-13 11:42 | Outpatient (CLI) | payer OTHER, SELFPAY ==
[2022-10-13 12:45] LABS: Alanine Aminotransferase 40 U/L (6-35); Albumin Level 4.4 g/dL (3.5-5.1); Alkaline Phosphatase 81 U/L (38-126); Anion Gap 7 mmol/L (8-16); Aspartate Amino Transferase 30 U/L (14-36); Blood Urea Nitrogen 9 mg/dL (7-17); Calcium 9.7 mg/dL (8.4-10.2); Carbon Dioxide 32 mmol/L (22-30); Chloride 101 mmol/L (98-107); Cholesterol 213 mg/dL (0-200); Estimated Glomerular Filt Rate > 60; Glucose 203 mg/dL (65-110); HDL Direct 51 mg/dL; Potassium 3.6 mmol/L (3.4-5.0); Sodium 140 mmol/L (137-145); Triglycerides 178 mg/dL (<150)
[2022-10-13 12:57] LABS: LDL Cholesterol Direct 109 mg/dL
== END 2022-10-13 11:43 | disposition home or self-care (01) ==
LOC: ANHLAB 11:44
PROVIDERS: PCP Internal Medicine; Visit Provider Nurse Practitioner
DX: E78.5 Hyperlipidemia, unspecified (principal)
CPT/HCPCS: 36415; 80053; 80061

== ENCOUNTER 2023-03-20 09:11 | Outpatient (CLI) | payer OTHER, SELFPAY ==
[2023-03-20 09:43] LABS: Eosinophils Absolute Auto 0.1 K/mm3 (0-0.3); Eosinophils Percent Auto 2.5 % (0-4.4); Hematocrit 41.8 % (37.0-47.0); Hemoglobin 14.3 g/dL (12.0-15.0); Immature Granulocyte Absolute 0.02 K/mm3 (0.00-0.031); Immature Granulocyte Percent A 0.5 % (0-0.5); Lymphocytes Absolute Auto 1.73 K/mm3 (0.9-3.2); Lymphocytes Percent Auto 42.8 % (18.3-44.2); Mean Corpuscular HGB Conc 34.2 g/dl (32-36); Mean Corpuscular Hemoglobin 28.9 pg (26-34); Mean Corpuscular Volume 84.6 fl (80-100); Mean Platelet Volume 8.9 fl (7.4-10.4); Monocytes Absolute Auto 0.4 K/mm3 (0.1-0.6); Monocytes Percent Auto 9.2 % (2.6-8.5); Neutrophils Absolute Auto 1.8 K/mm3 (1.3-6.7); Platelet Count Result 254 k/mm3 (150-375); Red Blood Count 4.94 M/mm3 (4.2-5.4); Red Cell Distribution Width 12.5 % (11.5-14.5)
[2023-03-20 09:58] LABS: Alanine Aminotransferase 75 U/L (6-35); Albumin Level 4.7 g/dL (3.5-5.1); Alkaline Phosphatase 98 U/L (38-126); Anion Gap 5 mmol/L (8-16); Aspartate Amino Transferase 46 U/L (14-36); Bilirubin,Total 1.1 mg/dL (0.2-1.3); Blood Urea Nitrogen 10 mg/dL (7-17); Calcium 9.9 mg/dL (8.4-10.2); Carbon Dioxide 30 mmol/L (22-30); Chloride 101 mmol/L (98-107); Cholesterol 230 mg/dL (0-200); Estimated Glomerular Filt Rate > 60; Glucose 158 mg/dL (65-110); HDL Direct 60 mg/dL; Sodium 136 mmol/L (137-145); Triglycerides 151 mg/dL (<150); Uric Acid 3.8 mg/dL (2.5-7.5)
[2023-03-20 10:19] LABS: LDL Cholesterol Direct 125 mg/dL
[2023-03-20 10:27] LABS: Hemoglobin A1C 9.7 % (<5.7)
[2023-03-20 10:30] LABS: Creatinine Urine 87.3 mg/dL
[2023-03-20 10:35] LABS: MALB Creatinine Ratio 17.5 mg/g (0-30); Microalbumin Urine Random 15.3 mg/L (0-16.7)
[2023-03-20 10:38] LABS: Iron 92 ug/dL (37-170)
[2023-03-20 10:50] LABS: Percent Iron Saturation 28 % (20-50)
[2023-03-20 11:00] LABS: Vitamin D 25 Hydroxy 35.5 ng/mL
== END 2023-03-20 09:12 | disposition home or self-care (01) ==
LOC: ANHLAB 09:15
PROVIDERS: PCP Internal Medicine; Visit Provider Internal Medicine
DX: E11.65 Type 2 diabetes mellitus with hyperglycemia (principal); I10 Essential (primary) hypertension; E55.9 Vitamin D deficiency, unspecified; M19.012 Primary osteoarthritis, left shoulder
CPT/HCPCS: 36415; 80053; 80061; 82043; 82306; 82607; 82746; 83036; 83540; 83550; 84443; 84550; 85025

== ENCOUNTER 2024-12-03 09:34 | Outpatient (CLI) | payer OTHER, SELFPAY ==
--- NOTE | ~2024-12-03 | MR_ITS ---
MRI of the lumbar spine Clinical History: Radiculopathy Technique: Axial T2-weighted images, and sagittal T1-weighted, T2-weighted, and T2 fat-sat images wer e acquired. COMPARISON: 02/04/2022 Findings: There is no fracture or subluxation of the lumbar spine. Vertebral bodies maintain normal h eight and alignment. No bone marrow signal abnormality seen. At L1-L2 and L2-L3, there is no disc bulge or herniation. There is moderate facet arthropathy. No jenni tral canal stenosis or neural foraminal narrowing at these levels. At L3-L4, there is moderate degenerative distended with minimal disc bulge. There is advanced facet a rthropathy. No central canal stenosis or neural foraminal narrowing. At L4-L5, there is minimal disc bulge with moderate facet arthropathy. No central canal stenosis or n eural foraminal narrowing. At L5-S1, there is no disc bulge or herniation. There is moderate facet arthropathy. No central canal stenosis or neural foraminal narrowing. Paravertebral soft tissues are unremarkable. Impression: Mild degenerative change, as above. Reviewed, dictated and finalized at location M. Impression: Mild degenerative change, as above.
== END 2024-12-03 09:35 | disposition home or self-care (01) ==
PROVIDERS: PCP Internal Medicine; Visit Provider Nurse Practitioner Family
DX: M54.16 Radiculopathy, lumbar region (principal); M51.369 Other intervertebral disc degeneration, lumbar region without mention of lumbar back pain or lower extremity pain
CPT/HCPCS: 72148

== ENCOUNTER 2025-02-16 10:11 | Outpatient (CLI) | payer OTHER, SELFPAY ==
--- OUTSIDE RECORDS SUMMARY | 2025-02-16 10:18 | XMS_ITS | Clinical Summary ---
Author Organization [facility] [address] Address [address] [place] [address] Care Team Providers Care Guest Services Attendant Name Role Phone Lan Cooper MD Primary Care Provider [phone]- [phone] Allergies No known active allergies Medications naproxen (NAPROSYN) 500 mg tablet Take 1 tablet (500 mg total) by mouth 2 (two) times a day with meals 30 tablet 07/04/2024 Active cyclobenzaprine (FLEXERIL) 10 mg tablet Take 1 tablet (10 mg total) by mouth 3 (three) times a day as needed for muscle spasms 15 tablet 07/04/2024 Active Active Problems Problem Noted Date Diagnosed Date Cervicalgia 03/27/2015 Lumbago 03/27/2015 Calculus of kidney 03/29/2012 Surgical History Surgery Date Site/Laterality Comments [place] CHOLECYSTECTOMY Cholecystectomy - (Added by Conv) Medical History Medical History Date Comments Epilepsy without status epil epticus, not intractable (HCC) Epilepsy - (Added by TW Conv ) Personal history of other di seases of the circulatory system History of angina pectoris - (Added by TW Conv) Personal history of other (h ealed) physical injury and trauma History of spinal cord inju ry - (Added by TW Conv) Personal history of other di seases of the circulatory system History of hypertension - (A dded by TW Conv) Personal history of other en docrine, nutritional and metabolic disease History of diabetes mellitus - (Added by TW Conv) Family History Medical History Relation Name Comments Heart disease Brother 1 Family history of cardiac disorder - (Added by TW Conv) Hypertension Brother 2 Family history of hypertension - (Added by TW Conv) Diabetes Brother 3 Family history of diabetes mellitus - (Added by TW Conv) Diabetes Father Family history of diabetes mellitus - (Added by TW Conv) Heart disease Father Family history of cardiac disorder - (Added by TW Conv) Hypertension Father Family history of hypertension - (Added by TW Conv) Diabetes Mother Family history of diabetes mellitus - (Added by TW Conv) Heart disease Mother Family history of cardiac disorder - (Added by TW Conv) Hypertension Mother Family history of hypertension - (Added by TW Conv) Kidney disease Mother Family histor y of kidney disease - (Added by TW Conv) Heart disease Sister 1 Family history of cardiac disorder - (Added by TW Conv) Hypertension Sister 2 Family history of hypertension - (Added by TW Conv) Diabetes Sister 3 Family history of diabetes mellitus - (Added by TW Conv) Gout Sister 4 Family history of gout - (Added by Conv) Breast cancer Neg Hx Relation Name Status Comments Brother 1 Brother 2 Brother 3 Father Mother Sister 1 Sister 2 Sister 3 Sister 4 Social History Tobacco Use Types Packs/Day Years Used Date Smoking Tobacco: Former Personal Safety Answer Date Recorded Have you ever been in or are you currently in a harmful physical or emotional relationship or is someone making you feel afraid or unsafe? Denies 07/04/2024 Comments No Sex and Gender Information Value Date Recorded Sex Assigned at Not on file Legal Sex Female 6:21 AM ASSISTANT COMMUNITY MANAGER Gender Identity Not on file Sexual Orientation Not on file Obstetrics History Para Term AB IAB SAB Ectopic Multiple Livin g Live Births 6 5 5 Date Outcome GA Total Labor Labor/2nd/3rd Weight Sex Type Anes PTL On A1 A5 Name Clin Term Term Term Term Term Last Filed Vital Signs Vital Sign Reading Time Taken Comments Blood Pressure 152/82 07/04/2024 10:22 AM ASSISTANT COMMUNITY MANAGER Pulse 115 07/04/2024 10:22 AM ASSISTANT COMMUNITY MANAGER Temperature 37 C (98.6 F) 07/04/2024 10:22 AM ASSISTANT COMMUNITY MANAGER Respiratory Rate 17 07/04/2024 10:22 AM ASSISTANT COMMUNITY MANAGER Oxygen Saturation 100% 07/04/2024 10:22 AM ASSISTANT COMMUNITY MANAGER Inhaled Oxygen Concentration - - Weight 79.4 kg (175 lb) 02/21/2016 10:28 AM CDT Height 167.6 cm (5' 6) 07/04/2024 10:22 AM ASSISTANT COMMUNITY MANAGER Body Mass Index 27.41 02/21/2016 10:28 AM CDT Plan of Treatment Health Maintenance Due Date Last Done Comments Cervical Cancer Screening 1960 Colon Cancer Screening-Colonoscopy 1960 Depression Screening 1960 Hepatitis C Screening 1960 DTaP/Tdap/Td Vaccine (1 - Tdap) 1971 Hepatitis B Screening 1978 Regular Well Visit/Exam 18-64 1978 Covid-19 Vaccine ( - season) 2024 08/25/2021, 01/13/2021, 12/23/2020 Influenza Vaccine (Season Ended) 2025 07/18/2023 Breast Cancer Screening-Mammogram 07/04/2025 07/04/2024, 07/29/2023, 07/29/2023, Additional history exists Zoster Vaccine Completed 11/30/2023, 10/02/2023 Pneumococcal vaccine <65 Aged Out No longer eligible based on patient's age to complete this topic Procedures Procedure Name Priority Date/Time Associated Diagnosis Comments SCREENING MAMMOGRAM BILATERAL W MICHAEL Schedule Routine, Read Routine (OP Routine) 07/04/2024 10:03 AM ASSISTANT COMMUNITY MANAGER Screening mammogram, encounter for from Last 3 Months or Most Recently Relevant to Health Maintenance Results * Screening Mammogram Bilateral W Michael (07/04/2024 10:03 AM ASSISTANT COMMUNITY MANAGER) Anatomical Region Laterality Modality Breast Bilateral Mammography Impressions 07/04/2024 6:21 PM ASSISTANT COMMUNITY MANAGER BI-RADS ATLAS category (overall): 2 - Benign There is no mammographic evidence of malignancy. A 1 year screening mammogram is recommended. The patient has been or will be contacted. We recommend annual screening mammography for women at average risk of breast cancer beginning at age 40, based on guidelines of the [employer] [employer] (ACR Practice Parameter for the Performance of Screening and Diagnostic Mammography) and [place]. For women with and elevated risk of breast cancer, please refer to the ACR Practice Parameter for specific screening recommendations. The patient will be entered into a reminder system with a target due date of 1 year for her next screening exam. Narrative 07/04/2024 6:21 PM ASSISTANT COMMUNITY MANAGER Screening Mammogram Bilateral W Michael: 07/04/24 The study was acquired using full field digital technology and interpreted from soft copy. 2D digital mammographic views, as well as 3D digital tomosynthesis were performed in the CC and MLO projections. This study was resulted using Computer-Aided Detection (CAD). CLINICAL: Screening mammogram, encounter for. No relevant medical history has been documented for this patient. History of breast cancer in Neg Hx. No comparisons were made when reading this study. BREAST TISSUE: There are scattered areas of fibroglandular density. FINDINGS: There are benign calcifications in both breasts. No suspicious masses, suspicious calcifications, or other suspicious findings are seen within either breast. There has been no suspicious change. Lan Cooper MD IMG MAMMO PROCEDURES Final Result from Last 3 Months or Most Recently Relevant to Health Maintenance Insurance [facility]PPO Address: [place] [address] Care Teams Guest Services Attendant Relationship Specialty Start Date End Date Lan Cooper MD [address] [facility] [address] [place] [address] PCP - General Internal Medicine 06/22/24
--- OUTSIDE RECORDS SUMMARY | 2025-02-16 10:18 | XMS_ITS | Clinical Summary ---
Author Organization [facility] Address [address] [place] [address] Care Team Providers Care Ophthalmic Medical Assistant Name Role Phone Unavailable Primary Care Provider Unavailabl e Source Comments [facility],non-owned Affiliates and Associated Physician Practices is amultiple site organization consisting of ambulatory clinics and hospital sitesin [place], [place], [place] and [place]. This disclosure is being madepursuant to the Care Everywhere program and may not contain all information available regarding this patient. Last updated 18[facility] Medications * Be aware that medications may not be up to date on this document. Alwaysverify current medications with the patient. No known medications Active Problems No known active problems Social History Tobacco Use Types Packs/Day Years Used Date Smoking Tobacco: Never Assessed Comments Unknown Sex and Gender Information Value Date Recorded Sex Assigned at Not on file Legal Sex Female 1:14 PM DECK MOLDER Gender Identity Not on file Sexual Orientation Not on file Plan of Treatment Health Maintenance Due Date Last Done Comments COLOGUARD (AGES 45-75) - COL ON CA SCREENING 1960 COLON MONITORING 1960 COLONOSCOPY - COLON CA SCREENING 1960 CT COLONOGRAPHY - COLON CA SCREENING 1960 Colorectal Cancer Screening 1960 FIT - COLON CA SCREENING 1960 FLEX SIG - COLON CA SCREENING 1960 LIPID TESTING 1960 HIV SCREENING 1975 HEPATITIS C SCREENING 08/03/1978 DTAP/TDAP/TD VACCINES (1 - Tdap) 1979 PNEUMOCOCCAL VACCINE 50+ (1 of 1 - PCV) 2010 ZOSTER VACCINE (1 of 2) 2010 MAMMOGRAM 04/26/2023 04/26/2021 COVID-19 VACCINE (3 - 2023-2 5 season) 2024 01/13/2021, 12/23/2020 DEPRESSION SCREENING 08/10/2024 INFLUENZA VACCINE (#1) 2025 Respiratory Syncytial Virus (RSV) Vaccine Pt: or over 60 yrs (1 - 1-dose 75+ series) 2035 HEPATITIS B VACCINE Aged Out No longe r eligible based on patient's age to complete this topic HIB VACCINE Aged Out No longer eligi ble based on patient's age to complete this topic HPV VACCINE Aged Out No longer eligi ble based on patient's age to complete this topic MENINGOCOCCAL (Group B) VACCINE SHARED DECISION-MAKING Aged Out No longer eligible based on patient's age to complete this topic MENINGOCOCCAL GROUPS A/C/Y/W VACCINE Aged Out No longer eligible b ased on patient's age to complete this topic Insurance [place] [address]
--- OUTSIDE RECORDS SUMMARY | 2025-02-16 10:18 | XMS_ITS | Clinical Summary ---
Author Organization [facility] Address [facility] [place] [address] Care Team Providers Care Mining Machinery Assembler Name Role Phone Lan Betancourt MD Primary Care Provider [phone]- [phone] Social History Tobacco Use Types Packs/Day Years Used Date Smoking Tobacco: Never Assessed Comments No Sex and Gender Information Value Date Recorded Sex Assigned at Female 10/21/2024 12:11 PM CDT Legal Sex Female 8:29 PM CDT Gender Identity Not on file Sexual Orientation Not on file Plan of Treatment Health Maintenance Due Date Last Done Comments Colorectal Cancer Screening Colonoscopy (10 Years) 1960 Annual Physical 1963 DTaP, Tdap and Td Vaccines (1 - Tdap) 1979 Pneumococcal Vaccine: 50+ Years (1 of 1 - PCV) 2010 COVID-19 Vaccine ( season) 2024 07/18/2023, 08/25/2021, 01/13/2021, Additional history exists Cervical Cancer Screening Pap Smear (Age 30 to 64) Every 3 Years 08/13/2025 08/13/2022 Mammogram Screening 07/04/2026 07/04/2024, 07/29/2023, 04/26/2021, Additional history exists Cervical Cancer Screening Pap with HPV Testing (Age 30 to 64) Every 5 Years 08/13/2027 08/13/2022 Cervical Cancer Screening with HPV 08/13/2027 RSV Immunization or 60+ Years (1 - 1-dose 75+ series) 2035 Hepatitis C Completed 08/11/2023 Zoster Vaccines Completed 11/30/2023, 10/02/2023 Meningococcal B Vaccine Aged Out No l onger eligible based on patient's age to complete this topic Meningococcal Vaccine Aged Out No lindsay mani eligible based on patient's age to complete this topic RSV Immunizations Under 20 Months Aged Out No longer eligible based on patient's age to complete this topic Procedures Procedure Name Priority Date/Time Associated Diagnosis Comments HC EIA QL HEPATITIS ABC B AG Routine 08/11/2023 11:51 AM GEOMORPHOLOGY TEACHER Diabetes mellitus with hyperglycemia Elevated liver transaminase level MG SCREENING W STEPHY JOSE MANUEL DIGI Routine 07/29/2023 3:15 PM GEOMORPHOLOGY TEACHER Encounter for screening mammogram for malignant neoplasm of breast from Last 3 Months or Most Recently Relevant to Health Maintenance Results * HEPATITIS A,B,& C (08/11/2023 11:51 AM GEOMORPHOLOGY TEACHER) HEPATITIS B SURFACE AG NON-REACTIVE NON-REACT CATARINO 08/11/2023 2:37 PM GEOMORPHOLOGY TEACHER [facility] HEP B CORE TOTAL AB NON-REACTIVE NON-REACT CATARINO 08/11/2023 2:37 PM GEOMORPHOLOGY TEACHER [facility] HEP B SURFACE AB REACTIVE 08/11/2023 1:21 PM GEOMORPHOLOGY TEACHER [facility] HAV IGM NON-REACTIVE NON-REACT CATARINO 08/11/2023 2:37 PM GEOMORPHOLOGY TEACHER [facility] HEPATITIS C AB NON-REACTIVE NON-REACT CATARINO 08/11/2023 2:37 PM GEOMORPHOLOGY TEACHER [facility] 08/11/2023 11:5 1 AM GEOMORPHOLOGY TEACHER us Lan Betancourt MD LABORATORY Final Resul t [facility] [address] [place] [address], [place] [phone] * MG SCREENING W STEPHY JOSE MANUEL DIGI (07/29/2023 3:15 PM GEOMORPHOLOGY TEACHER) Anatomical Region Laterality Modality Breast Bilateral Mammography 07/30/2023 10:4 3 AM GEOMORPHOLOGY TEACHER Narrative 07/30/2023 10:43 AM GEOMORPHOLOGY TEACHER EXAMINATION: Digital bilateral screening mammogram with 3-D tomosynthesis EXAM DATE/TIME: 07/29/2023 2:53 PM REASON FOR EXAM: N/A COMPARISON: Priors including April 2021, June 2020, March 2019. TECHNIQUE: Digital screening mammography of both breasts was performed in addition to 3-D Tomosynthesis technique. This study was read with the assistance of a computer-aided detection system. TISSUE DENSITY: There are scattered areas of fibroglandular density. FINDINGS: No suspicious masses, malignant appearing calcifications, skin thickening or other abnormalities are present. No significant change from the prior exam. =====IMPRESSION:===== No mammographic findings suggestive of malignancy ASSESSMENT: ACR BI-RADS 2 - BENIGN FINDING(S) Recommendation: 1: Routine Screening Bilateral COMMENTS: Ordered By: LAN BETANCOURT Interpreted By: Santosh Adkins MD, 07/30/2023 10:43 AM Lan Betancourt MD MAMMO Final Resul t from Last 3 Months or Most Recently Relevant to Health Maintenance Insurance [employer] Care Teams Mining Machinery Assembler Relationship Specialty Start Date End Date Lan Betancourt MD [address] [facility] [address] [place] [address] PCP - General INTERNAL MEDICINE 10/21/24
--- OUTSIDE RECORDS SUMMARY | 2025-02-16 10:18 | XMS_ITS | Clinical Summary ---
Author Organization [facility] Care Team Providers Care Senior Firmware Engineer Name Role Phone Unavailable Primary Care Provider Unavailabl e Social History Tobacco Use Types Packs/Day Years Used Date Smoking Tobacco: Never Assessed Comments Unknown Sex and Gender Information Value Date Recorded Sex Assigned at Not on file Legal Sex Female 1:06 PM CONSTRUCTION SALES MANAGER Gender Identity Not on file Sexual Orientation Not on file Plan of Treatment Health Maintenance Due Date Last Done Comments Hepatitis C Virus (HCV) Screening 1960 TdaP Immunization 1960 Pap Smear 1981 Cervical Cancer Screening (CCS) 1990 HPV/Cotest 1990 Colonoscopy 2005 Colorectal Cancer Screening 2005 Cologuard 2010 Immunochemical Fecal Occult Blood 2010 Mammogram 2010 Pneumococcal Immunization (5 0+ years) (1 of 1 - PCV) 2010 Zoster Immunization (1 of 2) 2010 Influenza Immunization (#1) 2024 SARS-COV-2 Immunization (2023- season) 2024 Respiratory Syncytial Virus (RSV) Immunization (Adult) (1 - 1-dose 75+ series) 2035 Hepatitis B Immunization Aged Out No longer eligible based on patient's age to complete this topic Meningococcal Immunization (ACWY) Aged Out No longer eligible based on patient's age to complete this topic Pneumococcal Immunization Combined Aged Out No longer eligible based on patient's age to complete this topic Rotavirus Immunization Aged Out No lo nger eligible based on patient's age to complete this topic
--- OUTSIDE RECORDS SUMMARY | 2025-02-16 10:18 | XMS_ITS | Referral Summary ---
Author Organization [facility] [address] Address [address] [place] [address] Care Team Providers Care Embedded Firmware Developer Name Role Phone Lan Cooper MD Primary Care Provider +1- [phone] Allergies No known active allergies Medications naproxen [...] 03/27/2015 Lumbago 03/27/2015 Calculus of kidney 03/29/2012 Social History Tobacco Use Types Packs/Day Years [...] on file Legal Sex Female 6:21 AM CHOCOLATE TEMPERER Gender Identity Not on file Sexual Orientation Not on file Last Filed Vital Signs Vital Sign Reading Time Taken Comments Blood Pressure 152/82 07/04/2024 10:22 AM CHOCOLATE TEMPERER Pulse 115 07/04/2024 10:22 AM CHOCOLATE TEMPERER Temperature 37 C (98.6 F) 07/04/2024 10:22 AM CHOCOLATE TEMPERER Respiratory Rate 17 07/04/2024 10:22 AM CHOCOLATE TEMPERER Oxygen Saturation 100% 07/04/2024 10:22 AM CHOCOLATE TEMPERER Inhaled Oxygen Concentration - - Weight 79.4 kg (175 lb) 02/21/2016 10:28 AM CDT Height 167.6 cm (5' 6) 07/04/2024 10:22 AM CHOCOLATE TEMPERER Body Mass Index 27.41 02/21/2016 10:28 AM CDT Plan of Treatment Not on file Procedures Procedure Name Priority Date/Time Associated Diagnosis Comments SCREENING MAMMOGRAM BILATERAL W MICHAEL Schedule Routine, Read Routine (OP Routine) 07/04/2024 10:03 AM CHOCOLATE TEMPERER Screening mammogram, encounter for from Last 3 Months or Most Recently Relevant to Health Maintenance Results * Screening Mammogram Bilateral W Michael (07/04/2024 10:03 AM CHOCOLATE TEMPERER) Anatomical Region Laterality Modality Breast Bilateral Mammography Impressions 07/04/2024 6:21 PM CHOCOLATE TEMPERER BI-RADS ATLAS category (overall): 2 - Benign There is no mammographic evidence of malignancy. A 1 year screening mammogram is recommended. The patient has been or will be contacted. We recommend annual screening mammography for women at average risk of breast cancer beginning at age 40, based on guidelines of the [place] [employer] (ACR Practice Parameter for the Performance of Screening and Diagnostic Mammography) and [place] [employer]. For women with and elevated risk of breast cancer, please refer to the ACR Practice Parameter for specific screening recommendations. The patient will be entered into a reminder system with a target due date of 1 year for her next screening exam. Narrative 07/04/2024 6:21 PM CHOCOLATE TEMPERER Screening Mammogram Bilateral W Michael: 07/04/24 The [...] Most Recently Relevant to Health Maintenance Insurance [facility] Care Teams Embedded Firmware Developer Relationship Specialty Start Date End Date Lan Cooper MD [address] [facility] [address] [place] [address] PCP - General Internal Medicine 06/22/24
[2025-02-16 10:40] LABS: Alanine Aminotransferase 42 U/L (6-35); Albumin Level 4.3 g/dL (3.5-5.1); Alkaline Phosphatase 75 U/L (38-126); Anion Gap 8 mmol/L (4-12); Aspartate Amino Transferase 35 U/L (14-36); Bilirubin,Total 0.9 mg/dL (0.2-1.3); Blood Urea Nitrogen 6 mg/dL (7-17); Calcium 10.1 mg/dL (8.4-10.2); Carbon Dioxide 27 mmol/L (22-30); Chloride 103 mmol/L (98-107); Cholesterol 149 mg/dL (0-200); Estimated Glomerular Filt Rate > 60; Glucose 216 mg/dL (65-110); HDL Direct 63 mg/dL; Potassium 4.0 mmol/L (3.4-5.0); Sodium 138 mmol/L (137-145); Total Protein 7.4 g/dL (6.3-8.2); Triglycerides 121 mg/dL (<150)
[2025-02-16 11:09] LABS: Free T4 Free Thyroxine 1.21 ng/dL (0.78-2.19); Thyroid Stimulating Hormone 1.520 uIU/mL (0.465-4.680)
[2025-02-16 11:19] LABS: MALB Creatinine Ratio 14.2 mg/g (0-30)
[2025-02-16 11:28] LABS: Vitamin B12 330.0 pg/mL (239-931)
== END 2025-02-16 10:12 | disposition home or self-care (01) ==
LOC: ANHLAB 10:12
PROVIDERS: PCP Internal Medicine; Visit Provider Nurse Practitioner Family
DX: E11.65 Type 2 diabetes mellitus with hyperglycemia (principal); Z79.4 Long term (current) use of insulin; I10 Essential (primary) hypertension; E11.69 Type 2 diabetes mellitus with other specified complication; E78.5 Hyperlipidemia, unspecified
CPT/HCPCS: 36415; 80053; 80061; 82043; 82306; 82607; 84439; 84443

== ENCOUNTER 2025-06-30 10:08 | Outpatient (CLI) | payer OTHER, SELFPAY ==
--- OUTSIDE RECORDS SUMMARY | 2025-06-30 10:13 | XMS_ITS | Clinical Summary ---
Author Organization [facility] Care Team Providers Care Lead Loader Name Role Phone Unavailable Primary Care Provider Unavailabl e Social History Tobacco Use Types Packs/Day Years Used Date Smoking Tobacco: Never Assessed Comments Unknown Sex and Gender Information Value Date Recorded Sex Assigned at Not on file Legal Sex Female 1:06 PM RES HABILITATION ASSISTANT Gender Identity Not on file Sexual Orientation Not on file Plan of Treatment Health Maintenance Due Date Last Done Comments Hepatitis C Virus (HCV) Screening 1960 TdaP Immunization 1960 Pap Smear 1981 Cervical Cancer Screening (CCS) 1990 HPV/Cotest 1990 Cologuard 2005 Colonoscopy 2005 Colorectal Cancer Screening 2005 Immunochemical Fecal Occult Blood 2005 Pneumococcal Immunization (5 0+ years) (1 of 1 - PCV) 2010 Zoster Immunization (1 of 2) 2010 Influenza Immunization (#1) 2025 SARS-COV-2 Immunization ( - season) 2025 Respiratory Syncytial Virus (RSV) Immunization (Adult) (1 - 1-dose 75+ series) 2035 Hepatitis B Immunization Aged Out No longer eligible based on patient's age to complete this topic Human Papillomavirus (HPV) Immunization Aged Out No longer eligible b ased on patient's age to complete this topic Meningococcal Immunization (ACWY) Aged Out No longer eligible based on patient's age to complete this topic Rotavirus Immunization Aged Out No lo nger eligible based on patient's age to complete this topic
--- OUTSIDE RECORDS SUMMARY | 2025-06-30 10:13 | XMS_ITS | Clinical Summary ---
Author Organization [facility] Address [address] [place] [address] Care Team Providers [employer] Consultant Name Role Phone Unavailable Primary Care Provider Unavailabl e Source Comments [facility],non-owned Affiliates and Associated Physician Practices is amultiple site organization consisting of ambulatory clinics and hospital sitesin [place], [place], [place] and [place]. This disclosure is being madepursuant to the Care Everywhere program and may not contain all information available regarding this patient. Last updated 18.[facility] Medications * Be aware that medications may not be up to date on this document. Alwaysverify current medications with the patient. 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
--- OUTSIDE RECORDS SUMMARY | 2025-06-30 10:14 | XMS_ITS | Data Portability ---
Author Organization [place] - [facility] Address [address] [place] [address] Assessment No assessment recorded. Plan of Treatment Reminders Order Date Submit Date Provider Last Modified By Organization Details Last Modified Time Details Appointments Follow Up 15 2025 01:30P M Lan Cooper MD Not available Not available Not available Lab lipid panel, serum 2024 025 [facility], One [facility], [place], [address], 06/28/2025 04:04:12 glucose , fingers tick, blood [address], [address], [place], [address], 06/21/2025 17:51:43 HbA1c (hemogl obin A1c), blood 2024 025 [facility], One [facility], [place], [address], 06/28/2025 04:04:11 microal bumin/c reatini ne, mass ratio, urine 2024 025 [facility], [address] [facility], [place], [address], 06/28/2025 04:04:11 CMP, serum or plasma 2024 [facility], [address] [facility], [place], [address], 06/28/2025 04:04:11 vitamin D, 25-hydr oxy, total, serum 2024 [facility], [address], [place], [address], 06/28/2025 04:04:11 TSH, serum or plasma 2024 [facility], [address], [place], [address], 06/28/2025 04:04:12 CBC w/ auto diff 2024 [facility], [address], [place], [address], 06/28/2025 04:04:12 urinaly sis complet e, reflex culture 2024 [facility], [address], [place], [address], 06/28/2025 04:04:13 TSH, serum, reflex free T4 2024 [facility], [address], [place], [address], 06/28/2025 04:04:13 lipid panel w/ direct LDL, serum 2024 [facility], [address], [place], [address], 06/28/2025 04:04:13 uric acid, serum or plasma 2024 025 [facility], [place], [address], 06/28/2025 04:04:12 CMP, serum or plasma 2024 025 [facility], One [facility], [place], [address], 06/28/2025 04:04:12 Referral dermato logist referra l 2024 025 [facility], [address] [place] [address], [address], 04/05/2025 04:03:01 pain managem ent referra l 2024 025 [facility], [address], [place], [address], 03/02/2025 15:35:41 pain managem ent referra l 2024 025 [facility], [address], [place], [address], 05/28/2025 05:01:20 Procedures None recorde d. Surgeries None recorde d. Imaging MAMMO, screeni ng, digital , bilater al [address] [facility], [address] [place], [address], 06/21/2025 17:55:18 home sleep study 2024 025 [facility], [address], [place], [address], 06/28/2025 04:04:10 home sleep study 2024 025 [facility], [address], [place], [address], 01/04/2025 04:03:29 Medication Orders clobeta corinna 0.05 % topical cream 2024 025 [facility] [address], [address], [place], [address], 06/21/2025 17:51:53 clotrim azole-b etameth asone 1 %-0.05 % topical cream 2024 025 [facility] [address], [address], [place], [address], 03/08/2025 11:36:44 triamci nolone acetoni de 0.1 % topical cream 2024 025 tdall1 [facility] [address], [address], [place], [address], 02/24/2025 14:38:00 rosuvas tatin 40 mg tablet 2024 025 [facility] [address], [address], [place], [address], 12/28/2024 16:29:01 Flonase Allergy Relief 50 mcg/act uation nasal spray,s uspensi on 2024 025 [facility] [address], [address] , [place], [address], 12/28/2024 16:29:00 meloxic am 15 mg tablet 2024 025 [facility] [address], [address] , [place], [address], 12/28/2024 16:09:54 Patient TargetsNo targets recorded. Patient Instructions Encounter Date Encounter Id Patient Instructions Last Modified By Organization Details Last Modified Time 12/28/2024 [id number] snoring: care instructions [email or web address] Not available 12/28/2024 16:28:55 learning about healthy weight [email or web address] Not available 12/28/2024 16:28:55 02/22/2025 [id number] rash: care instructions [email or web address] Not available 02/22/2025 12:42:25 snoring: care instructions [email or web address] Not available 02/22/2025 12:42:25 learning about healthy weight [email or web address] Not available 02/22/2025 12:42:25 I spent a total of _26 minutes (excluding separately reportable procedure time ) in care of this patient. [email or web address] Not available 02/22/2025 12:55:36 03/08/2025 [id number] rash: care instructions [email or web address] Not available 03/08/2025 11:34:10 snoring: care instructions [email or web address] Not available 03/08/2025 11:34:10 learning about healthy weight [email or web address] Not available 03/08/2025 11:34:10 I spent a total of __22____ minutes (excluding separately reportable procedure time ) in care of this patient. [email or web address] Not available 03/08/2025 11:33:56 06/21/2025 [id number] mammogram: about this test [email or web address] Not available 06/21/2025 17:51:42 snoring: care instructions [email or web address] Not available 06/21/2025 17:51:43 rash: care instructions [email or web address] Not available 06/21/2025 17:51:42 psoriasis: care instructions [email or web address] Not available 06/21/2025 17:51:42 learning about healthy weight [email or web address] Not available 06/21/2025 17:51:42 I spent a total of __32____ minutes (excluding separately reportable procedure time ) in care of this patient. [email or web address] Not available 06/21/2025 17:46:31 Reason for Referral Pain Management Referral for Degeneration of lumbar intervertebral disc Referring Physician: Lan Cooper, Internal Medicine, Encounter Date: 10/27/2024 Pain Management Referral for Chronic neck pain Referring Physician: Lan Cooper, Internal Medicine, Encounter Date: 10/27/2024 Shift Mgr Referral for E ruption Referring Physician: Lan Cooper, Internal Medicine, Encounter Date: 03/08/2025 Results Created Date Observation Date Name Description Value Unit Range Abnormal Flag Note LastModifiedBy Organization Detail LastModifiedTime 06/21/20 25 06/21/2025 gluco se, finge rstic k, blood Blood Glucose: mg/dl 143 Not Available [facility] [address], [place], [address], 06/21/2025 17:14:15 10/23/19 25 10/21/2024 XR, hip + pelvi s, bilat eral, 2 view No observ ation record ed. [address], [address], 10/27/2024 16:53:18 10/23/19 25 10/21/2024 XR, lumbo sacra l spine , 2 or 3 view No observ ation record ed. [address], [address], 10/27/2024 16:53:18 10/23/19 25 10/21/2024 XR, cervi kumar spine , 2 or 3 view No observ ation record ed. [address], [address], 10/27/2024 16:53:18 12/29/19 25 12/05/2024 MRI, lumba r spine , w/o contr ast MRI of the lumbar spine Clinic al Histor y: Radicu lopath yTechn ique: Axial T2-amanda ghted images , and aiitt al T1-amanda ghted, T2-amanda ghted, and T2 fat-sa t images were acquir ed.COM OPAL N: 022Fin dings: There is no fractu re or sublux ation of the lumbar spine. Verteb ral bodies mainta in normal height and alignm ent. No bone marrow signal abnorm ality seen.A t L1-L2 and L2-L3, there is no disc bulge or hernia tion. There is modera te facet arthro karlo. No centra l canal stenos is or neural forami nal narrow ing at these levels .At L3-L4, there is modera te degene rative disten ded with minima l disc bulge. There is advanc ed facet arthro karlo. No centra l canal stenos is or neural forami nal narrow ing.At L4-L5, there is minima l disc bulge with modera te facet arthro karlo. No centra l canal stenos is or neural forami nal narrow ing.At L5-S1, there is no disc bulge or hernia tion. There is modera te facet arthro karlo. No centra l canal stenos is or neural forami nal narrow ing.Pa ravert ebral soft tissue s are unrema rkable .Impre ssion: Mild degene rative change , as above. [email or web address] Not Available 02/07 12:29:37 Result Notes Documentation Provider Name and Address Organization Details Recorded Time Mri, Lumbar Spine, W/o Contrast : MRI of the lumbar spine Clinical History: RadiculopathyTechnique: Axial T2-weighted images, and sagittal T1-weighted, T2-weighted, and T2 fat-sat images were acquired.COMPARISON: 02/04/2022Findings: There is no fracture or subluxation of the lumbar spine. Vertebral bodies maintain normal height and alignment. No bone marrow signal abnormality seen.At L1-L2 and L2-L3, there is no disc bulge or herniation. There is moderate facet arthropathy. No central canal stenosis or neural foraminal narrowing at these levels.At L3-L4, there is moderate degenerative distended with minimal disc bulge. There is advanced facet arthropathy. No central canal stenosis or neural foraminal narrowing.At L4-L5, there is minimal disc bulge with moderate facet arthropathy. No central canal stenosis or neural foraminal narrowing.At L5-S1, there is no disc bulge or herniation. There is moderate facet arthropathy. No central canal stenosis or neural foraminal narrowing.Paravertebral soft tissues are unremarkable.Impression: Mild degenerative change, as above. Lan Cooper MD [address] [facility] [address], [place], [address], [facility] 02/22/2025 12:29:37 Problems Name Problem SNOMED Code Status Onset Date Resolution Date Notes Provider Name and Address Organization Details Recorded Time Chronic neck pain 08972062805 07 Active Chronic neck pain Not Available [facility] 3 10:47:30 Long-ter m current use of insulin 058211277 Active Long-ter m current use of insulin Not Available [facility] 3 10:47:30 Localize d, primary osteoart hritis of the shoulder region 469687847 Active Localize d, primary osteoart hritis of the shoulder region Not Available [facility] 3 10:47:30 [facility] kylah 85662155 Active [facility] Not Available [facility] 3 10:47:30 Vitamin D deficien cy 65349692 Active Vitamin D deficien cy Not Available [facility] 3 10:47:30 Type 2 diabetes mellitus without complica tion 054654945 Completed 03/16/2023 Type II diabetes mellitus without complica tion Lan Cooper MD [address] [facility] [address], [place], [address] , [facility] 3 15:54:46 Chronic low back pain 403512014 Active Chronic low back pain Not Available [facility] 3 10:47:30 Type 2 diabetes mellitus 38796395 Active 2022 Not Available [facility] 3 10:47:30 Mixed hyperlip idemia 579609493 Active 2022 Not Available [facility] 3 10:47:30 Trigger finger of right hand 90447519055 727690 Active 2022 Not Available [facility] 3 10:47:30 Liver enzymes level above referenc e range 825392555 Active 2022 Not Available [facility] 3 10:47:30 Herpes zoster 2194220 Completed 202210/06/2024 Lan Cooper MD [address] [facility] [address], [place], [address] , [facility] 5 16:54:46 Degenera tion of lumbar interver tebral disc 96627100 Active 2024 Lan Cooper MD [address] [facility] [address], [place], [address] , [facility] 5 17:03:54 Body mass index 25-29 - overweig ht 114087657 Active 2024 Lan Cooper MD [address] [facility] [address], [place], [address] , [facility] 5 16:22:50 Tinnitus of right ear 55156289637 08 Active 2024 Lan Cooper MD [address] [facility] [address], [place], [address] , [facility] 5 16:24:01 Snoring 63184185 Active 2024 Lan Cooper MD [address] [facility] [address], [place], [address] , [facility] 5 16:24:18 Eruption 119226505 Active 2024 Lan Cooper MD [address] [facility] [address], [place], [address] , [facility] 5 12:33:40 Uncontro lled type 2 diabetes mellitus 185638567 Active 2024 [facility] 5 10:53:51 Psoriasi s 3102604 Active 2024 [facility] 5 12:19:35 Problem Notes None recorded. Medical Equipment None Reported. Allergies No known drug allergies Medications Name Sig Start Date Stop Date Status Note LastModified by Organization Details LastModified Time Prescriptio n - Change active Not Available Not Available N ot Available losartan 50 mg tablet TAKE 1 TABLET BY MOUTH ONCE DAILY active Not Available Not Available No t Available cyclobenzap rine 10 mg tablet TAKE 1 TABLET BY MOUTH THREE TIMES DAILY NEEDED FOR MUSCLE SPASM 12/28 completed Not Available Not Available Not Available methocarbam ol 500 mg tablet TAKE 2 TABLETS BY MOUTH 4 TIMES DAILY NEEDED 12/28 completed Not Available Not Available Not Available fluconazole 150 mg tablet TAKE 1 TABLET BY MOUTH NOW AND REPEAT IN 7 DAYS active Not Available Not Available No t Available valacyclovi r 1 gram tablet Take 1 tablet 3 times a day by oral route for 7 days. 04/28 completed Not Available Not Available Not Available meloxicam 15 mg tablet Take 1 tablet every day by oral route with meal(s). 12/28 completed Not Available Not Available Not Available clobetasol 0.05 % topical cream APPLY A THIN LAYER TO THE AFFECTED AREA(S) BY TOPICAL ROUTE 2 TIMES PER DAY 2024 active Not Available Not Available Not Avai lable permethrin 5 % topical cream APPLY FROM THE NECK DOWN TO FEET OVERNIGHT FOR 8 HOURS. WASH OFF IN THE MORNING. REPEAT IN 1 WEEK 06/21 completed Not Available Not Available Not Available metronidazo le 500 mg tablet TAKE 1 TABLET BY MOUTH EVERY 12 HOURS FOR 7 DAYS active Not Available Not Available No t Available amlodipine 5 mg tablet TAKE 1 TABLET BY MOUTH EVERY DAY active Not Available Not Available No t Available triamcinolo ne acetonide 0.1 % topical cream APPLY TO AFFECTED AREA(S) TOPICALLY TWICE DAILY active Not Available Not Available No t Available carvedilol 3.125 mg tablet TAKE 1 TABLET BY MOUTH ONCE DAILY active Not Available Not Available No t Available metformin 1,000 mg tablet TAKE 1 TABLET BY MOUTH ONCE DAILY active Not Available Not Available No t Available clotrimazol e-betametha sone 1 %-0.05 % topical cream Apply 1 applicati on twice a day by topical route for 30 days. 2024 active Not Available Not Available Not Avai lable omeprazole 20 mg capsule,del ayed release Take 1 capsule every day by oral route. active Not Available Not Available No t Available Baby Aspirin 81 mg chewable tablet Chew 1 tablet every day by oral route. active Not Available Not Available No t Available estradiol 0.01% (0.1 mg/gram) vaginal cream INSERT 1 GRAM VAGINALLY ONCE DAILY AT BEDTIME FOR 2 WEEKS. THEN INSERT 1 GRAM VAGINALLY AT BEDTIME TWICE WEEKLY FOR MAINTENAN CE DOSE active Not Available Not Available No t Available fluticasone propionate 50 mcg/actuati on nasal spray,suspe nsion USE 1 SPRAY(S) IN EACH NOSTRIL TWICE DAILY active Not Available Not Available No t Available naproxen 500 mg tablet TAKE 1 TABLET BY MOUTH TWICE DAILY WITH MEALS 12/28 completed Not Available Not Available Not Available insulin lispro (U-100) 100 unit/mL subcutaneou s pen INJECT 20 UNITS SUBCUTANE OUSLY BEFORE BREAKFAST , THEN INJECT 10 UNITS SUBCUTANE OUSLY BEFORE LUNCH AND DINNER. SLIDING SCALE 200-250: 2 UNITS, 251-300: 3 UNITS, 301-350: 4 UNITS, 351-400: 5 UNITS, >401: 6 UNITS. active Not Available Not Available No t Available rosuvastati n 40 mg tablet TAKE 1 TABLET BY MOUTH ONCE DAILY active Not Available Not Available No t Available nitrofurant oin monohydrate /macrocryst als 100 mg capsule TAKE 1 CAPSULE BY MOUTH EVERY 12 HOURS FOR 5 DAYS 04/28 completed Not Available Not Available Not Available BD Ultra-Fine Mini Pen Needle 31 gauge x 3/16 USE 1 4 TIMES DAILY active Not Available Not Available No t Available Vitamin D3 once daily active Not Available Not Available No t Available Jardiance 10 mg tablet TAKE 1 TABLET BY MOUTH ONCE DAILY 12/28 completed Not Available Not Available Not Available insulin glargine (U-300) conc. 300 unit/mL (1.5 mL) subcutaneou s pen INJECT 30 UNITS SUBCUTANE OUSLY ONCE DAILY active Not Available Not Available No t Available Toujeo SoloStar U-300 Insulin 30 units at night 06/14 completed Not Available Not Available Not Available Basaglgabbie KwikPen U-100 Insulin 100 unit/mL (3 mL) subcutaneou s INJECT 30 UNITS SUBCUTANE OUSLY ONCE DAILY AT BEDTIME active Not Available Not Available No t Available Toujeo Max U-300 SoloStar 300 unit/mL (3 mL) subcutaneou s insulin pen INJECT 30 UNITS SUBCUTANE OUSLY ONCE DAILY 12/28 completed Not Available Not Available Not Available Ozempic 1 mg/dose (4 mg/3 mL) subcutaneou s pen injector INJECT 1 MG SUBCUTANE OUSLY ONCE A WEEK FOR 90 DAYS active Not Available Not Available No t Available Mounjaro 5 mg/0.5 mL subcutaneou s pen injector INJECT 5 MG (0.5ML) SUBCUTANE OUSLY WEEKLY 12/28 completed Not Available Not Available Not Available Dexcom G7 Sensor device USE DIRECTED. CHANGE EVERY 10 DAYS active Not Available Not Available No t Available Ozempic 0.25 mg or 0.5 mg (2 mg/3 mL) subcutaneou s pen injector INJECT 0.5MG SUBCUTANE OUSLY EVERY WEEK 12/28 completed Not Available Not Available Not Available Malou 2nd Gen Pen Needle 32 gauge x /32 USE TO INJECT FOUR TIMES DAILY active Not Available Not Available No t Available Vitals Date Recorded Body height Body temperature Body mass index (BMI) Body weight Heart rate Respiratory rate Oxygen saturation Systolic And Diastolic Provider Name and Address Organization Details Last Updated DateTime 5 170.18 cm 98.2 [degF] 26 kg/m2 80012.3 3 g 104 /min 18 /min 100 % 122/60 mm[Hg] [facility] 5 16:27:51 Date Recorded Body height Body temperature Body mass index (BMI) Body weight Heart rate Respiratory rate Oxygen saturation Systolic And Diastolic Provider Name and Address Organization Details Last Updated DateTime 5 170.18 cm 98.3 [degF] 25.7 kg/m2 13418.1 5 g 97 /min 18 /min 98 % 128/74 mm[Hg] [facility] 5 15:43:53 Date Recorded Body height Body temperature Body mass index (BMI) Body weight Heart rate Respiratory rate Oxygen saturation Systolic And Diastolic Provider Name and Address Organization Details Last Updated DateTime 5 170.18 cm 98.2 [degF] 26.3 kg/m2 59874.5 2 g 111 /min 18 /min 99 % 122/62 mm[Hg] [facility] 5 12:10:34 Date Recorded Body height Body temperature Body mass index (BMI) Body weight Heart rate Respiratory rate Oxygen saturation Systolic And Diastolic Provider Name and Address Organization Details Last Updated DateTime 5 170.18 cm 97.7 [degF] 26.3 kg/m2 29199.5 2 g 90 /min 17 /min 97 % 118/63 mm[Hg] Ryanne Pascal [facility] 5 11:12:27 Date Recorded Body temperature Body mass index (BMI) Body weight Heart rate Respiratory rate Oxygen saturation Systolic And Diastolic Provider Name and Address Organization Details Last Updated DateTime 5 97.1 [degF] 26.2 kg/m2 62366.9 3 g 85 /min 18 /min 97 % 120/77 mm[Hg] Lan Cooper MD [address], [place], [address], [facility] 5 17:09:10 Date Recorded Body height Provider Name an d Address Organization Details Last Updated DateTime 06/21/2025 170.18 cm Aissatou Lauri [facility] 06/21/2025 17:03:31 Social History None recorded. Functional Status None recorded. Mental Status None recorded. Family History Nothing Reported Notes:mother-diabetes father -diabetes 2 sisters-diabetes, heart disease 2 brother-diabetes 1 brother-heart disease FamilyHistoryDetails: COMMENTS:0 brother(s) , 0 sister(s) . 0 son(s) , 0 daughter(s) Notes: : DIABETES: PARENTS, SIBLINGS; HIGH BLOOD PRESSURE: PARENTS AND SIBLINGS; THYROID PROBLEMS: MOTHER AND SISTER; KIDNEY PROBLEMS: MOTHER Medical History Condition Response Coronary Artery Disease N Other N Gout N Kidney Stones N Blood Diseases N Hyperthyroidism N Breast Cancer N Blood Transfusion N Hypothyroidism N Depression N COPD N Lung Disease N Defects or Inherited Disease N Developmental or Behavioral Disorders N Breast Problem N Difficulty Swallowing N Anesthesia Complications N Meniere's disease N Anxiety Disorder N Muscle, Joint, or Bone Problems N Obesity N Vision or Eye Problems N Arthritis Y Polyps N Infertility N Mental Disorder N Cancer N Varicosities N Stroke N Endometriosis N Bladder or Kidney Problems N High Cholesterol Y Liver Disease N Headaches Y Fibromyalgia N Kidney Disease N Allergies/Hayfever N Heart Problems N Ear or Hearing Problems N Hospitalizations N Thyroid Problems N GI Problems N ADD/ADHD N Skin Problems N Eating Disorder Y Anemia N MRSA exposure N Constipation N Mental Illness N Ovarian Cancer N Diabetes Y Bedwetting N Seizures/Epilepsy N Tuberculosis N AIDS/HIV N Congestive Heart Failure (CHF) N Eczema N Diverticulitis N Abuse/Domestic Violence N Asthma N Reflux/GERD Y Hepatitis N Heart Disease N Pulmonary Embolism N Chronic Ear Infections N Pre-Eclampsia N Hypertension Y Chicken Pox N Autism Spectrum Disorder (ASD) N Osteoporosis N Thrombophilias N Gynecological HistoryNo gynecological history recorded. Obstetrics History GPAL:G 0 P 0 0 0 0 Immunizations Vaccine Type Date Status Note Provider Nam e and Address Organization Details Recorded Time COVID-19, mRNA, LNP-S, PF, 30 mcg/0.3 mL dose 08/25/2021 completed Lan Cooper MD [address] [facility] [address], [place], [address], [facility] 07/21/2023 17:38:17 COVID-19, mRNA, LNP-S, PF, 30 mcg/0.3 mL dose 12/23/2020 completed Lan Cooper MD [address] [facility] [address], [place], [address], [facility] 07/21/2023 17:38:17 COVID-19, mRNA, LNP-S, PF, 30 mcg/0.3 mL dose 01/13/2021 completed Lan Cooper MD [address] [facility] [address], [place], [address], [facility] 07/21/2023 17:38:17 Influenza, MDCK, quadrivalent, PF 07/18/2023 completed Lan Cooper MD [address] [facility] [address], [place], [address], [facility] 09/16/2023 16:15:00 COVID-19, mRNA, LNP-S, PF, oly-sucrose, 30 mcg/0.3 mL 07/18/2023 [facility]/16/2023 15:51:58 zoster recombinant 10/02/2023 completed Lan Cooper MD [address], [place], [address], [facility] 12/30/2023 11:05:31 zoster recombinant 11/30/2023 completed Lan Cooper MD [address], [place], [address], [facility] 12/30/2023 11:05:31 Influenza, MDCK, trivalent, PF 04/29/2024 completed Lan Cooper MD [address], [place], [address], [facility] 10/06/2024 17:03:49 Past Encounters Encounter ID Performer Location Encounter Start Date Encounter Closed Date Diagnosis/Indication Diagnosis SNOMED-CT Code Diagnosis ICD10 Code Diagnosis IMO Codes Diagnosis Note [id number] Lan Cooper MD [facility] [address] [facility] [address] [place] [address] 03/16/2023 14:32:04 03/16/2023 17:32:24 Type 2 diabetes mellitus 05960525 E11.65 dm dx 54 years. type 2initially started on metformini nsulin started in 1-2 years after lrjal9d: 7 last.eye check: 2022 , yearlyno peripheral neuropathy foot exam: regularlyo n toujeo 30 units, metformin 1000 mg po daily, ozempic 0.25 mg q 2weeksjard iance cuased stomach problem and hence stopped Long-term current use of insulin 492805696 Z79.4 regulary uses toujeo u 300 30 units daily Essential hypertension 32480975 I10 bp not optimal. bp optimal at home.on losartan and carvidelol amlod 5 mg dialy Vitamin D deficiency 347 13504 E55.9 recheck labs Mixed hyperlipidemia 267 819733 E78.2 rosuvastat in 40 mg daily Localized, primary osteoarthritis of the shoulder region 044692599 M19.012 right shoulder problem ongoing.se e orthopedic s. Dr. More Trigger fi nger of right hand [id number] 5117729 M65.30 right hand right trigger fingersees dr. Patterson [id number] Lan Cooper MD [facility] [address] [place] [address] 06/17/2023 16:13:34 06/17/2023 17:35:24 Type 2 diabetes mellitus 79521865 E11.65 dm dx 54 years. type 2initially started on metformini nsulin started in 1-2 years after yiifa0i: 7 last.eye check: 2022 , yearlyno peripheral neuropathy foot exam: regularlyo n toujeo 30 units, metformin 1000 mg po daily, ozempic 0.25 mg q 2weeksjard iance caused stomach problem and hence stopped03/11 3: 9.7 off ozempic due to nausea (used it for 8 months)dex com G7: average with 8.7a1c: 9.1 in the endocrinol ogist office 06/2023fol lows with endocrinol ogist Rosa Maria Lopez at [place], [place] Long-term current use of insulin 743347483 Z79.4 regulary uses toujeo u 300 30 units daily Essential hypertension 59685787 I10 bp optimalon losartan and carvidelol amlod 5 mg dialy Vitamin D deficiency 347 56589 E55.9 labs reviewed Mixed hyperlipidemia 267 150948 E78.2 rosuvastat in 40 mg dailylipid profile with 221/60/125 /151switch to night time dosing. Localized, primary osteoarthritis of the shoulder region 091654799 M19.012 right shoulder problem ongoing.se e orthopedic s. Dr. More Trigger fi nger of right hand [id number] 4169280 M65.30 right hand right trigger fingersees dr. Patterson Preventive procedure 169 359060 Z29.9 covid: 3 shotsflu: bad reaction to this in the pastpneumo ken[place] shot: recommende dshingles: recommnede dtdap: recommende d Liver enzy mes level above reference range 012827490 R74.01 mldy elevated liver eznymesno alcoholNAS H: diabetes related Screening for malignant neoplasm of breast 382597611 Z12.31 ordered [id number] Lan Cooper MD [facility] [address] [place] [address] 07/21/2023 11:29:05 07/21/2023 17:58:59 Herpes zoster 7894445 B02.9 supsected as we were not able to see the picutre.bu t descriptio n of the rash is suggestive of thisnever had shingles before.iván cordero order valacyclov ir. 7 day course.she will try to get th epicture and send it to me if possiblety lneol or ibuprofen for pain control advised and this is helping she states [id number] Lan Cooper MD [facility] [address] [place] [address] 09/16/2023 15:33:18 09/16/2023 16:29:29 Type 2 diabetes mellitus 58354042 E11.65 dm dx 54 years. type 2initially started on metformini nsulin started in 1-2 years after yotbf5g: 7 last.eye check: 2022 , yearlyno peripheral neuropathy foot exam: regularlyo n toujeo 30 units, metformin 1000 mg po daily, ozempic 0.25 mg q 2weeksjard iance caused stomach problem and hence stopped03/11 3: 9.7 off ozempic due to nausea (used it for 8 months)dex com G7: average with 8.7a1c: 9.1 in the endocrinol ogist office 06/2023fol lows with endocrinol ogist Rosa Maria Lopez at [place], //24: 8.5 on freestyle attempted mounjaro for 2 months. back on ozempic 0.5 mg q weekly. Long-term current use of insulin 261901225 Z79.4 regulary uses toujeo u300 30 units daily Essential hypertension 94074068 I10 bp optimalon losartan and carvidelol amlod 5 mg daily Vitamin D deficiency 347 75218 E55.9 labs reviewed Mixed hyperlipidemia 267 469366 E78.2 rosuvastat in 40 mg dailylipid profile with 221/60/125 /151switch to night time dosing.iván cordero rehcek lipid profile Localized, primary osteoarthritis of the shoulder region 486763475 M19.012 right shoulder problem ongoing.se e orthopedic s. Dr. More Trigger fi nger of right hand [id number] 2767525 M65.30 right hand right trigger fingersees dr. Bichalho Preventive procedure 169 276595 Z29.9 mammogram: 08/01: normalcovi d: 3 shotsflu: bad reaction to this in the pastpneumo kenya shot: recommende dshingles: recommnede dtdap: recommende dcolonsocp y: one in the pasrt years ago. started at [address]. [address] Stephens seen.she will fu with him Liver enzy mes level above reference range 684856443 R74.01 mldy elevated liver eznymesno alcoholNAS H: diabetes relatedhep atitis profile negative.f erritin normal Screening for malignant neoplasm of colon 970766447 Z12.11 colonscopy in the pastwilref to douglas espino [id number] Lan Cooper MD [facility] [address] [place] [address] 12/30/2023 10:31:21 12/30/2023 11:26:36 Essential hypertension 60419983 I10 bp optimalon losartan and carvidelol amlod 5 mg daily Type 2 christy betes mellitus 72533257 E11.65 dm dx 54 years. type 2initially started on metformini nsulin started in 1-2 years after gsedk3l: 7 last.eye check: 2022 , yearlyno peripheral neuropathy foot exam: regularlyo n toujeo 30 units, metformin 1000 mg po daily, ozempic 0.25 mg q 2weeksjard iance caused stomach problem and hence stopped/ 3: 9.7 off ozempic due to nausea (used it for 8 months)dex com G7: average with 8.7a1c: 9.1 in the endocrinol ogist office 06/2023fol lows with endocrinol ogist Rosa Maria Lopez at [place], [place]1/2/24: 8.5 on freestyle attempted mounjaro for 2 months. back on ozempic 0.5 mg q weekly.2/2 4: 6.7 uac negative3/ 24: 6.4 Long-term current use of insulin 248904283 Z79.4 regularly uses toujeo u300 30 units daily Vitamin D deficiency 347 75366 E55.9 labs reviewed Mixed hyperlipidemia 267 429392 E78.2 rosuvastat in 40 mg dailylipid profile with 221/60/125 /151switch to night time dosing.09/11 4: 209/65/117 /157 Localized, primary osteoarthritis of the shoulder region 185566625 M19.012 right shoulder problem ongoing.se e orthopedic s. Dr. More Trigger fi nger of right hand [id number] 4591591 M65.30 right hand right trigger fingersees dr. Patterson Preventive procedure 169 597060 Z29.9 mammogram: 08/01: normalcovi d: 3 shotsflu: bad reaction to this in the pastpneumo kenya shot: recommende dshingles: 10/03;tdap: recommende dcolonsocp y: one in the pasrt years ago. started at [address]. [address] Stephens seen.she will fu with [address]olog[facility] rd 10/03: negative Liver enzy mes level above reference range 127354948 R74.01 mldy elevated liver eznymesno alcoholNAS H: diabetes relatedhep atitis profile negative.f erritin normal [id number] Lan Cooper MD [facility] [address] [place] [address] 04/28/2024 16:00:51 04/28/2024 16:46:03 Essential hypertension 99003718 I10 bp optimalon losartan and carvidelol , amlod 5 mg daily Type 2 christy betes mellitus 57272596 E11.65 dm dx 54 years. type 2initially started on metformini nsulin started in 1-2 years after svyef6k: 7 last.eye check: 2022 , yearlyno peripheral neuropathy foot exam: regularlyo n toujeo 30 units, metformin 1000 mg po daily, ozempic 0.25 mg q 2weeksjard iance caused stomach problem and hence stopped03/11 3: 9.7 off ozempic due to nausea (used it for 8 months)dex com G7: average with 8.7a1c: 9.1 in the endocrinol ogist office 06/2023fol lows with endocrinol ogist Rosa Maria Lopez at [place], [place]1/24: 8.5 on freestyle attempted mounjaro for 2 months. back on ozempic 0.5 mg q weekly.09/11 4: 6.7 uac negative: 6.4 Long-term current use of insulin 279949226 Z79.4 regularly uses toujeo u300 30 units daily Vitamin D deficiency 347 71959 E55.9 labs reviewed Mixed hyperlipidemia 267 124941 E78.2 rosuvastat in 40 mg dailylipid profile with 221/60/125 /151switch to night time dosing.09/11 4: 209/65/117 /157 Localized, primary osteoarthritis of the shoulder region 246476086 M19.012 right shoulder problem ongoing.se e orthopedic s. Dr. More Trigger fi nger of right hand [id number] 4380161 M65.30 right hand right trigger fingersees dr. Patterson Preventive procedure 169 783602 Z29.9 mammogram: 08/01: normalcovi d: 3 shotsflu: bad reaction to this in the past ne [place] shot: recommende dshingles: 10/03; 11/2023tdap : recommende dcolonsocp y: one in the pasrt years ago. started at [address] Stephens seen.[facility] 10/03: negative Liver enzy mes level above reference range 048305114 R74.01 mldy elevated liver eznymesno alcoholNAS H: diabetes relatedhep atitis profile negative.f erritin normal Adult heal th examination 806681480 Z00.00 diet a nd physical activity reviwedvac cines and screening tests reviewedme dication reviewed Screening for malignant neoplasm of breast 121934142 Z12.31 ordered [id number] Lan Cooper MD [facility] [address] [place] [address] 10/06/2024 16:02:12 10/06/2024 17:15:04 Preventive procedure 773202789 Z29.9 mammogram: 08/01: normalcovi d: 3 shotsflu: bad reaction to this in the past ne [place] shot: recommende dshingles: 10/03; 11/2023tdap : recommende dcolonsocp y: one in the pasrt years ago. started at [address] Stephens seen.she will fu [facility] 10/03: negative Essential hypertension 74536350 I10 bp not optimal but having some painon losartan and carvedilol , amlod 5 mg daily Type 2 christy betes mellitus 13313913 E11.65 dm dx 54 years. type 2initially started on metformini nsulin started in 1-2 years after qpyjy1j: 7 last.eye check: 2022 , yearlyno peripheral neuropathy foot exam: regularlyo n toujeo 30 units, metformin 1000 mg po daily, ozempic 0.25 mg q 2weeksjard iance caused stomach problem and hence stopped03/11 3: 9.7 off ozempic due to nausea (used it for 8 months)dex com G7: average with 8.7a1c: 9.1 in the endocrinol ogist office 06/2023fol lows with endocrinol ogist Rosa Maria Lopez at [place], [place]1/10/03: 8.5 on freestyle attempted mounjaro for 2 months. back on ozempic 0.5 mg q weekly.09/11 4: 6.7 uac negative3/ 24: 6.412/24: 7.5 uAC negative Long-term current use of insulin 966526607 Z79.4 regularly uses toujeo u300 30 units daily Vitamin D deficiency 347 59464 E55.9 labs reviewed Mixed hyperlipidemia 267 596203 E78.2 rosuvastat in 40 mg dailylipid profile with 221/60/125 /151switch to night time dosing.09/11 4: 209/65/117 /86719/24: LDL 83 on rosuvastat in Localized, primary osteoarthritis of the shoulder region 070827383 M19.012 right shoulder problem ongoing.se e orthopedic s. Dr. More Trigger fi nger of right hand [id number] 5438543 M65.30 right hand right trigger fingersees dr. Patterson Liver enzy mes level above reference range 615360554 R74.01 mildy elevated liver eznymesno alcoholNAS H: diabetes relatedhep atitis profile negative.f erritin normal Screening for malignant neoplasm of breast 510170079 Z12.31 ordered Chronic neck pain 540404 8477 107 M54.2 hx of cervical fusion 1998worsen ed neck painon cyclobenza concha prn ibuprofen prnwill get xray cervical spinediscu ssed physical therapy: will hold off until xrays are done Chronic low back pain 27 1831295 M54.50 worsened now in low back since a year nowkimberly is taking cyclobenza concha prn but makes her dizzy.will add methocarba molon ibuprofen prn [id number] Lan Cooper MD [facility] [address] [place] [address] 10/27/2024 15:48:14 10/27/2024 17:09:23 Chronic neck pain 8927426088 107 M54.2 M50.30 hx of cervical fusion 1998worsen ed neck painon cyclobenza concha prn ibuprofen prnwill get xray cervical spinediscu ssed physical therapy:xr reviewdD: multilevel ddd.methoc arbamol did not help Essential hypertension 83279263 I10 bp not optimal but having some painon losartan and carvedilol , amlod 5 mg daily Type 2 christy betes mellitus 98645048 E11.65 dm dx 54 years. type 2initially started on metformini nsulin started in 1-2 years after ztkbw9b: 7 last.eye check: 2022 , yearlyno peripheral neuropathy foot exam: regularlyo n toujeo 30 units, metformin 1000 mg po daily, ozempic 0.25 mg q 2weeksjard iance caused stomach problem and hence stopped03/11 3: 9.7 off ozempic due to nausea (used it for 8 months)dex com G7: average with 8.7a1c: 9.1 in the endocrinol ogist office 06/2023fol lows with endocrinol ogist Rosa Maria Lopez at [place], [place]1/2/24: 8.5 on freestyle attempted mounjaro for 2 months. back on ozempic 0.5 mg q weekly.2 4: 6.7 uac negative3/ 24: 6.412/24: 7.5 uAC negative Long-term current use of insulin 364108148 Z79.4 regularly uses toujeo u300 30 units daily Vitamin D deficiency 347 71042 E55.9 labs reviewed Mixed hyperlipidemia 267 311337 E78.2 rosuvastat in 40 mg dailylipid profile with 221/60/125 /151switch to night time dosing.09/11 4: 209/65/117 /47149/: LDL 83 on rosuvastat in Preventive procedure 169 918592 Z29.9 mammogram: 08/01: normalcovi d: 3 shotsflu: bad reaction to this in the past 3pne umonia shot: recommende dshingles: 10/03; 11/2023tdap : recommende dcolonsocp y: one in the pasrt years ago. started at [address]. [address] Stephens seen.she will fu with [facility]olog[facility] 10/03: negative Localized, primary osteoarthritis of the shoulder region 173947667 M19.012 right shoulder problem ongoing.se e orthopedic s. Dr. More Trigger fi nger of right hand [id number] 1122302 M65.30 right hand right trigger fingersees dr. Patterson Liver enzy mes level above reference range 418262737 R74.01 mildy elevated liver eznymesno alcoholNAS H: diabetes relatedhep atitis profile negative.f erritin normal Degenerati on of lumbar intervertebral disc 19714262 M51.369 worsened now in low back since a year nowkimberly is taking cyclobenza concha prn but makes her dizzy.saqib chase methocarba mol which did not help muchon ibuprofen prnxr ls spine with mild to moderate ddd.xr hip: mild arthritisw ill refer to pain management for further treatment [id number] Lan Cooper MD [facility] [address] [place] [address] 12/28/2024 15:13:00 12/28/2024 16:31:36 Chronic neck pain 9472333482 107 M54.2 M50.30 hx of cervical fusion 1998worsen ed neck painon cyclobenza concha prn ibuprofen prndiscuss ed physical therapyxr reviewdD: multilevel ddd.methoc arbamol did not helpseen pain mgmt. Degenerati on of lumbar intervertebral disc 79769837 M51.369 worsened now in low back since a year alverto is taking cyclobenza concha prn but makes her dizzy.saqib chase methocarba mol which did not help muchon ibuprofen prnxr ls spine with mild to moderate ddd.xr hip: mild arthritiss eeing pain management now for further treatmentp lanned for some injections nowes not take meloxicam for this painMRI lumbar spine wo 12/02: with mild disc bulge, facet arthritis Essential hypertension 82405750 I10 bp optimalon losartan and carvedilol , amlod 5 mg daily Type 2 christy betes mellitus 71040558 E11.65 dm dx 54 years. type 2initially started on metformini nsulin started in 1-2 years after dpbbd7x: 7 last.eye check: 2022 , yearlyno peripheral neuropathy foot exam: regularlyo n toujeo 30 units, metformin 1000 mg po daily, ozempic 0.25 mg q 2weeksjard iance caused stomach problem and hence stopped03/11 3: 9.7 off ozempic due to nausea (used it for 8 months)dex com G7: average with 8.7a1c: 9.1 in the endocrinol ogist office 06/2023fol lows with endocrinol ogist Rosa Maria Lopez at [place], /10/03: 8.5 on freestyle attempted mounjaro for 2 months. back on ozempic 0.5 mg q weekly.09/11 4: 6.7 uac negative3: 6.412/24: 7.5 uAC negative Long-term current use of insulin 492950079 Z79.4 regularly uses toujeo u300 30 units daily Vitamin D deficiency 347 35660 E55.9 labs reviewed Mixed hyperlipidemia 267 202145 E78.2 rosuvastat in 40 mg dailylipid profile with 221/60/125 /151switch to night time dosing.09/11 4: 209/65/117 /34447/24: LDL 83 on rosuvastat in Preventive procedure 169 281198 Z29.9 mammogram: 08/01: normal, 07/03: negative.c ovid: 3 shotsflu: bad reaction to this in the past ne [place] shot: recommende dshingles: 10/03; 11/2023tdap : recommende d colonsocpy : one in the pasrt years ago. started at [address]. [address] Stephens [facility] 10[facility]03: negative Localized, primary osteoarthritis of the shoulder region 460989090 M19.012 right shoulder problem ongoing.se e orthopedic s. Dr. More Trigger fi nger of right hand [id number] 3374720 M65.30 right hand right trigger fingersees dr. Patterson Liver enzy mes level above reference range 361023521 R74.01 mildy elevated liver eznymesno alcoholNAS H: diabetes relatedhep atitis profile negative.f erritin normalrech jeana and monitor Body mass index 25-29 - overweight 034079450 E66.3 841931 bmi 25.7diet and physical activityon ozempic Tinnitus of right ear 48 34762039 108 H93.11 248223 no signs of infecitonw ill add flonase nasal spray Snoring 45963460 R06.83 88783 renetta risk factor present, assocaited fatigue,di scussed sleep testingagr eeaable [id number] Lan Cooper MD [facility] [address] [place] [address] 02/22/2025 11:39:23 02/22/2025 12:44:46 Essential hypertension 14808478 I10 bp optimalon losartan and carvedilol , amlod 5 mg daily Snoring 54104308 R06.83 79868 renetta risk factor present, assocaited fatigue,di scussed sleep testingagr eeaable but refused Chronic neck pain 917272 4049 107 M54.2 M50.30 hx of cervical fusion 1998worsen ed neck painon cyclobenza concha prn ibuprofen prndiscuss ed physical therapyxr reviewdD: multilevel ddd.methoc arbamol did not helpseen pain mgmt. Degenerati on of lumbar intervertebral disc 75447939 M51.369 worsened now in low back since a year nowshe is taking cyclobenza concha prn but makes her dizzy.adde d methocarba mol which did not help muchon ibuprofen prnxr ls spine with mild to moderate ddd.xr hip: mild arthritiss eeing pain management now for further treatments /p injections in 02/07/2025do es not take meloxicam for this painMRI lumbar spine wo 12/02: with mild disc bulge, facet arthritis Type 2 christy betes mellitus 18441926 E11.65 dm dx 54 years. type 2initially started on metformini nsulin started in 1-2 years after lpfee7w: 7 last.eye check: 2022 , yearlyno peripheral neuropathy foot exam: regularlyo n toujeo 30 units, metformin 1000 mg po daily, ozempic 0.25 mg q 2weeksjard iance caused stomach problem and hence stopped03/11 3: 9.7 off ozempic due to nausea (used it for 8 months)dex com G7: average with 8.7a1c: 9.1 in the endocrinol ogist office 06/2023fol lows with endocrinol ogist Rosa Maria Lopez at [place], /10/03: 8.5 on freestyle attempted mounjaro for 2 months. back on ozempic 0.5 mg q weekly.09/11 4: 6.7 uac negative: 6.: 7.5 uAC negative2024: 6.8 Long-term current use of insulin 444817460 Z79.4 regularly uses toujeo u300 30 units daily Vitamin D deficiency 347 67247 E55.9 labs reviewed Mixed hyperlipidemia 267 492575 E78.2 rosuvastat in 40 mg dailylipid profile with 221/60/125 /151switch to night time dosing.09/11 4: 209/65/117 /96125/: LDL 83 on rosuvastat in Preventive procedure 169 304562 Z29.9 mammogram: 08/01: normal, 07/03: negative.c ovid: 3 shotsflu: bad reaction to this in the past ne [place] shot: recommende dshingles: 10/03; 11/2023tdap : recommende d colonsocpy : one in the pasrt years ago. started at [address] Stephens seen[facility] 10/03: negative Localized, primary osteoarthritis of the shoulder region 204028077 M19.012 right shoulder problem ongoing.se e orthopedic s. Dr. More Trigger fi nger of right hand [id number] 9510956 M65.30 right hand right trigger fingersees dr. Patterson Liver enzy mes level above reference range 977930757 R74.01 mildy elevated liver eznymesno alcoholNAS H: diabetes relatedhep atitis profile negative.f erritin normalrech jeana and monitor Body mass index 25-29 - overweight 207559255 E66.3 659470 bmi 25.7diet and physical activityon ozempic Tinnitus of right ear 48 06540006 108 H93.11 720127 no signs of infecitonw ill add flonase nasal spray Eruption 591682092 R21 76895 started 01/2025expo sure to fluconazol e and metronidaz olealso on estradiol cream for atrophic vaginitiss top estradiolt ry triamcinol one creamfu in 2 weeks [id number] Lan Cooper MD [facility] [address] [place] [address] 03/08/2025 10:46:11 03/08/2025 11:37:34 Eruption 111143606 R21 86267 started 01/2025expo sure to fluconazol e and metronidaz olealso on estradiol cream for atrophic vaginitiss top estradiolt ry triamcinol one creamrash is similar unchanged, itchy.poss ilbe tinea corporis, will add clotrimazo yasmine send to dermatolog y Essential hypertension 66320808 I10 bp optimalon losartan and carvedilol , amlod 5 mg daily Snoring 45247661 R06.83 49267 renetta risk factor present, assocaited fatigue,di scussed sleep testingagr eeaable but refused Chronic neck pain 757672 3451 107 M54.2 M50.30 hx of cervical fusion 1998worsen ed neck painon cyclobenza concha prn ibuprofen prndiscuss ed physical therapyxr reviewdD: multilevel ddd.methoc arbamol did not helpseen pain mgmt. Degenerati on of lumbar intervertebral disc 18506579 M51.369 worsened now in low back since a year nowkimberly is taking cyclobenza concha prn but makes her dizzy.adde d methocarba mol which did not help muchon ibuprofen prnxr ls spine with mild to moderate ddd.xr hip: mild arthritiss eeing pain management now for further treatments /p injections in 02/07/2025do es not take meloxicam for this painMRI lumbar spine wo 12/02: with mild disc bulge, facet arthritis Type 2 christy betes mellitus 37785002 E11.65 dm dx 54 years. type 2initially started on metformini nsulin started in 1-2 years after txtch2y: 7 last.eye check: 2022 , yearlyno peripheral neuropathy foot exam: regularlyo n toujeo 30 units, metformin 1000 mg po daily, ozempic 0.25 mg q 2weeksjard iance caused stomach problem and hence stopped03/11 3: 9.7 off ozempic due to nausea (used it for 8 months)dex com G7: average with 8.7a1c: 9.1 in the endocrinol ogist office 06/2023fol lows with endocrinol ogist Rosa Mariafanny Lopez at [place], [place]1/10/03: 8.5 on freestyle attempted mounjaro for 2 months. back on ozempic 0.5 mg q weekly.09/11 4: 6.7 uac negative3 24: 6.24: 7.5 uAC negative2024: 6.8 Long-term current use of insulin 828766734 Z79.4 regularly uses toujeo u300 30 units daily Vitamin D deficiency 347 30828 E55.9 labs reviewed Mixed hyperlipidemia 267 386352 E78.2 rosuvastat in 40 mg dailylipid profile with 221/60/125 /151switch to night time dosing.09/11 4: 209/65/117 /19023/: LDL 83 on rosuvastat in Preventive procedure 169 884166 Z29.9 mammogram: 08/01: normal, 07/03: negative.c ovid: 3 shotsflu: bad reaction to this in the past ne [place] shot: recommende dshingles: 10/03; 11/2023tdap : recommende d colonsocpy : one in the pasrt years ago. started at [address]. [address] Stephens seen[facility] 10/03: negative Localized, primary osteoarthritis of the shoulder region 361600050 M19.012 right shoulder problem ongoing.se e orthopedic s. Dr. More Trigger fi nger of right hand [id number] 6007038 M65.30 right hand right trigger fingersees dr. Patterson Liver enzy mes level above reference range 023293515 R74.01 mildy elevated liver eznymesno alcoholNAS H: diabetes relatedhep atitis profile negative.f erritin normalrech jeana and monitor Body mass index 25-29 - overweight 598886295 E66.3 185594 bmi 25.7diet and physical activityon ozempic Tinnitus of right ear 48 27230047 108 H93.11 751078 no signs of infecitonw ill add flonase nasal spray [id number] Lan Cooper MD [facility] [address] [place] [address] 06/21/2025 16:15:37 06/21/2025 17:55:18 Essential hypertension 91823748 I10 bp optimalon losartan and carvedilol , amlod 5 mg daily Snoring 60302783 R06.83 31852 renetta risk factor present, assocaited fatigue,di scussed sleep testingagr eeaable and will order Chronic neck pain 050884 2712 107 M54.2 M50.30 hx of cervical fusion 1998worsen ed neck painon cyclobenza concha prn ibuprofen prndiscuss ed physical therapyxr reviewed: multilevel ddd.methoc arbamol did not helpseen pain mgmt. Degenerati on of lumbar intervertebral disc [id number] M51.369 worsened now in low back since a year nowkimberly is taking cyclobenza concha prn but makes her dizzy.adde d methocarba mol which did not help muchon ibuprofen prnxr ls spine with mild to moderate ddd.xr hip: mild arthritiss eeing pain management now for further treatments /p injections in 02/07/2025do es not take meloxicam for this painMRI lumbar spine wo 12/02: with mild disc bulge, facet arthritis Type 2 christy betes mellitus [id number] E11.65 dm dx 54 years. type 2initially started on metformini nsulin started in 1-2 years after vkwnk6n: 7 last.eye check: 2022 , yearlyno peripheral neuropathy foot exam: regularlyo n toujeo 30 units, metformin 1000 mg po daily, ozempic 0.25 mg q 2weeksjard iance caused stomach problem and hence stopped/ 3: 9.7 off ozempic due to nausea (used it for 8 months)dex com G7: average with 8.7a1c: 9.1 in the endocrinol ogist office 06/2023fol lows with endocrinol ogist Rosa Maria Lopez at [place], [place]1/10/03: 8.5 on freestyle attempted mounjaro for 2 months. back on ozempic 0.5 mg q weekly.09/11 4: 6.7 uac negative3: 6.41224: 7.5 uAC negative2024: 6.8 Long-term current use of insulin 170091542 Z79.4 regularly uses toujeo u300 30 units daily Vitamin D deficiency 347 87616 E55.9 labs reviewed Mixed hyperlipidemia 267 415839 E78.2 rosuvastat in 40 mg dailylipid profile with 221/60/125 /151switch to night time dosing.09/11 4: 209/65/117 /27853/: LDL 83 on rosuvastat in Preventive procedure 169 690262 Z29.9 mammogram: 08/01: normal, 07/03: negative.c ovid: 3 shotsflu: bad reaction to this in the past ne umonia shot: recommende dshingles: 10/03; 11/2023tdap : recommende d colonsocpy : one in the pasrt years ago. started at [address]. [address] Stephens [facility] negative Localized, primary osteoarthritis of the shoulder region 169958826 M19.012 right shoulder problem ongoing.se e orthopedic s. Dr. More Trigger fi nger of right hand [id number] 0974064 M65.30 right hand right trigger fingersees dr. Patterson Liver enzy mes level above reference range 508051817 R74.01 mildy elevated liver eznymesno alcoholNAS H: diabetes relatedhep atitis profile negative.f erritin normalrech jeana and monitor Body mass index 25-29 - overweight 853030233 E66.3 001325 bmi 25.7diet and physical activityon ozempic Psoriasis 9821619 L40.9 41154 started 01/2025expo sure to fluconazol e and metronidaz olealso on estradiol cream for atrophic vaginitiss top estradiolt ry triamcinol one creamrash is similar unchanged, itchy.poss ilbe tinea corporis, will add clotrimazo lesent to dermatolog ist: diagnosed with psoriasisn ow on clobetasol , wants to try cream. Screening for malignant neoplasm of breast [id number] Z12.31 ordered Health Concerns Section Related Observation LastModified by Organization Detai ls LastModified Time None Recorded Concern Status LastModified by Organization Details LastModified Time None Recorded Advance Directives Directive None Recorded Payers Insurance Date Sequence Insurance Name Policy Number Policy Vaughn Covered Member ID Vaughn Member ID Guarantor Name 10/06/2024 1 [facility] [id number] Ayo J Michael [id number] Clare Savanna Rodriguez 04/28/2024 1 [facility] [id number] Clare Rodriguez [id number] Clare J Michael 06/27/2025 1 [facility] [facility] [employer] [id number] Clare Rodriguez [id number] Clare Rodriguez Notes Date Note Type Note Provider Name and Address Organization Details Recorded Time 10/27/2024 text/html ROS as noted in the HPI Pt here for xray follow up. C/O neck, back and hip pain 02/16. Pt states she received no improvement with one dose of methocarbamol so she dc'd the medication. No chest pain, shortness of breath, nausea or vomiting. MD Kadi [address] [facility] [address], [place], [address], [facility] 10/27/2024 17:06:32 12/28/2024 text/html ROS as noted in the HPI Pt here for follow up. Diabetic eye exam done at [facility]-negative f/u 1 year. Pt c/o pain in neck and pack- 02/16. She is unable to sleep at night, ringing in right ear x 2 weeks. Denies nausea or vomiting. Cont. to take ozempic weekly. BS on dexcom is 115. No chest pain or shortness of breath. MD Kadi [address] [facility] [address], [place], [address], [facility] 12/28/2024 16:29:22 02/22/2025 text/html ROS as noted in the HPI Pt is here for sick visit. Pt c/o rash on legs, ,thighs, lower back and stomach x 3 weeks. Denies change in laundry detergent, soap, shampoo. She did start on vaginal probiotics and estradiol gel which she has stopped. she was also treated with metronidazole and fluconazole prior to this rash, which she has already completed. Rash seems to be spreading. States rash itches. No chest pain, shortness of breath, nausea or vomiting. patient is applying hydrocortisone otc to the rash which removes the scaling rash Lan Cooper MD [address] [facility] [address], [place], [address], [facility] 02/22/2025 12:55:54 03/08/2025 text/html ROS as noted in the HPI Patient is here for a 2 week f/u of rash. Applying prescribed cream 3 X daily for 2 weeks and has not noticed any change, appears to be spreading some. Blood sugar this morning was 117. No SOB, chest pain, dizziness, fever, nausea or diarrhea. Lan Cooper MD [address] [facility] [address], [place], [address], [facility] 03/08/2025 13:00:07 06/21/2025 text/html ROS as noted in the [facility] Pt here for follow up. No falls noted, depression screening negative. Pt sees dermatologists for psoriasis. Pt continues to follow diabetic diet and exercises daily. No chest pain, shortness of breath, nausea or vomiting. Lan Cooper MD [address] [facility] [address], [place], [address], [facility] 06/22/2025 18:37:45 OBGyn Episode No OBEpisode recorded.
--- OUTSIDE RECORDS SUMMARY | 2025-06-30 10:14 | XMS_ITS | Clinical Summary ---
Author Organization [facility] Address [facility] [place] [address] Care Team Providers Care Workers Compensation Legal Secretary Name Role Phone Lan Betancourt MD Primary Care Provider [phone] Social History Tobacco Use Types Packs/Day Years [...] Colonoscopy (10 Years) 1960 Annual Physical 1963 Hepatitis C 1978 DTaP, Tdap and Td Vaccines (1 - Tdap) 1979 Cervical Cancer Screening Pap with HPV Testing (Age 30 to 64) Every 5 Years 1990 Pneumococcal Vaccine: 50+ Years (1 of 1 - PCV) 2010 COVID-19 Vaccine ( - season) 2025 07/18/2023, 08/25/2021, 01/13/2021, Additional history exists Influenza Adult (#1) 2025 04/29/2024, 07/18/20 23 Cervical Cancer Screening Pap Smear (Age 30 to 64) Every 3 Years 08/13/2025 08/13/2022 Cervical Cancer Screening with HPV 08/13/2025 Mammogram Screening 07/04/2026 07/04/2024, 07/29/2023, 04/26/2021, Additional history exists RSV Immunization or 60+ Years (1 - 1-dose 75+ series) 2035 Zoster Vaccines Completed 11/30/2023, 10/02/2023 Hepatitis A Vaccines Aged Out No long er eligible based on patient's age to complete this topic Meningococcal B Vaccine Aged Out No l onger eligible based on patient's age to complete this topic Meningococcal Vaccine Aged Out No lindsay mani eligible based on patient's age to complete this topic RSV Immunizations Under 20 Months Aged Out No longer eligible based on patient's age to complete this topic Procedures Procedure Name Priority Date/Time Associated Diagnosis Comments MG SCREENING W STEPHY JOSE MANUEL DIGI Routine 07/29/2023 3:15 PM JOINER HELPER Encounter for screening mammogram for malignant neoplasm of breast from Last 3 Months or Most Recently Relevant to Health Maintenance Results * MG SCREENING W STEPHY JOSE MANUEL DIGI (07/29/2023 3:15 PM JOINER HELPER) Anatomical Region Laterality Modality Breast Bilateral Mammography 07/30/2023 10:4 3 AM JOINER HELPER Narrative 07/30/2023 10:43 AM JOINER HELPER EXAMINATION: Digital bilateral screening mammogram with 3-D [...] to Health Maintenance Insurance [employer] Care Teams Workers Compensation Legal Secretary Relationship Specialty Start Date End Date Lan Betancourt MD [address] [facility] [address] [place] [address] PCP - General INTERNAL MEDICINE 10/21/24
--- OUTSIDE RECORDS SUMMARY | 2025-06-30 10:14 | XMS_ITS | Clinical Summary ---
Author Organization [facility] [address] Address [address] [place] [address] Care Team Providers Care Contour Band Saw Operator Vertical Name Role Phone Lan Cooper MD Primary Care Provider [phone]- [phone] Allergies No known active allergies Medications naproxen [...] 03/29/2012 Surgical History Surgery Date Site/Laterality Comments LA CHOLECYSTECTOMY Cholecystectomy - (Added by Conv) Medical [...] history of diabetes mellitus - (Added by Conv) Heart disease Father Family history of [...] history of diabetes mellitus - (Added by Conv) Gout Sister 4 Family history of [...] on file Legal Sex Female 6:21 AM SPRING TESTER Gender Identity Not on file Sexual Orientation Not on file Obstetrics History Para Term AB IAB SAB Ectopic Multiple Livin g Live Births 6 5 5 Date Outcome GA Total Labor Labor/2nd/3rd Weight Sex Type Anes PTL No A1 A5 Name Clin Term Term Term Term Term Last Filed Vital Signs Vital Sign Reading Time Taken Comments Blood Pressure 152/82 07/04/2024 10:22 AM SPRING TESTER Pulse 115 07/04/2024 10:22 AM SPRING TESTER Temperature 37 C (98.6 F) 07/04/2024 10:22 AM SPRING TESTER Respiratory Rate 17 07/04/2024 10:22 AM SPRING TESTER Oxygen Saturation 100% 07/04/2024 10:22 AM SPRING TESTER Inhaled Oxygen Concentration - - Weight 79.4 kg (175 lb) 02/21/2016 10:28 AM CDT Height 167.6 cm (5' 6) 07/04/2024 10:22 AM SPRING TESTER Body Mass Index 27.41 02/21/2016 10:28 AM CDT Plan of Treatment Health Maintenance Due Date Last Done Comments Cervical Cancer Screening 1960 Colon Cancer Screening-Colonoscopy 1960 Depression Screening 1960 Hepatitis C Screening 1960 DTaP/Tdap/Td Vaccine (1 - Tdap) 1971 Hepatitis B Screening 1978 Regular Well Visit/Exam 18-64 1978 Covid-19 Vaccine ( season) 2025 08/25/2021, 01/13/2021, 12/23/2020 Influenza Vaccine (#1) 2025 07/18/2023 Breast Cancer Screening-Mammogram 07/04/2025 07/04/2024, 07/29/2023, 07/29/2023, Additional history exists Zoster Vaccine Completed 11/30/2023, 10/02/2023 Pneumococcal vaccine <65 Aged Out No longer eligible based on patient's age to complete this topic Procedures Procedure Name Priority Date/Time Associated Diagnosis Comments SCREENING MAMMOGRAM BILATERAL W MICHAEL Schedule Routine, Read Routine (OP Routine) 07/04/2024 10:03 AM SPRING TESTER Screening mammogram, encounter for from Last 3 Months or Most Recently Relevant to Health Maintenance Results * Screening Mammogram Bilateral W Michael (07/04/2024 10:03 AM SPRING TESTER) Anatomical Region Laterality Modality Breast Bilateral Mammography Impressions 07/04/2024 6:21 PM SPRING TESTER BI-RADS ATLAS category (overall): 2 - Benign There is no mammographic evidence of malignancy. A 1 year screening mammogram is recommended. The patient has been or will be contacted. We recommend annual screening mammography for women at average risk of breast cancer beginning at age 40, based on guidelines of the [employer] (ACR Practice Parameter for the Performance of Screening and Diagnostic Mammography) and [employer]. For women with and elevated risk of breast cancer, please refer to the ACR Practice Parameter for specific screening recommendations. The patient will be entered into a reminder system with a target due date of 1 year for her next screening exam. Narrative 07/04/2024 6:21 PM SPRING TESTER Screening Mammogram Bilateral W Michael: 07/04/24 The [...] Most Recently Relevant to Health Maintenance Insurance [facility] Care Teams Contour Band Saw Operator Vertical Relationship Specialty Start Date End Date Lan Cooper MD [address] [facility] [address] [place] [address] PCP - General Internal Medicine 06/22/24
--- OUTSIDE RECORDS SUMMARY | 2025-06-30 10:15 | XMS_ITS | Data Portability ---
Author Organization [facility], [place] Address [address] [place] [address] Assessment Encounter Date Assessment Date Assessment LastModified by Organization Details LastModified Time 02/19/2022 02/19/2022 Annual gynecological exam performed. Patient will come back in a year unless there are new symptoms. [email or web address] Not available 02/19/2022 12:19:19 01/04/2025 01/04/2025 Annual gynecological exam performed. Patient will come back in a year unless there are new symptoms. [email or web address] Not available 01/04/2025 14:54:58 Plan of Treatment Reminders Order Date Submit Date Provider Last Modified By Organization Details Last Modified Time Details Appointments None recorded. Lab unlisted lab - women's health swab, ELVA 2024 025 [facility] (Lab), [address] [place], [address], 11:33:25 Referral None recorded. Procedures None recorded. Surgeries None recorded. Imaging None recorded. Medication Orders estradiol 0.01% (0.1 mg/gram) vaginal cream 2024 025 [facility] 2425, [address], [place], [address], 11:30:37 estradiol 0.01% (0.1 mg/gram) vaginal cream 2024 025 [email or web address] [facility] 2425, [address], [place], [address], 5 12:05:25 metronidazo le 500 mg tablet 2024 025 [facility] [address]25, [address], [place], [address], 5 12:04:08 fluconazole 150 mg tablet 2024 025 [facility] [address]25, [address], [place], [address], 5 12:04:12 fluconazole 150 mg tablet [address], [address], [place], [address], 5 12:01:07 nystatin-tr iamcinolone 100,000 unit/gram-0 .1 % topical ointment [address], [address], [place], [address], 15:12:21 Patient TargetsNo targets recorded. Patient InstructionsNo instructions recorded. Reason for Referral None Reported. Results Created Date Observation Date Name Description Value Unit Range Abnormal Flag Note LastModifiedBy Organization Detail LastModifiedTime 02/20/20 22 02/19/2022 VAGIN ITIS/ VAGIN OSIS, DNA PROBE warren sp. detection, direct probe Negati ve negati ve Not Available [facility] [address] [place], [address], 02/24/2022 10:27:55 02/20/20 22 02/19/2022 VAGIN ITIS/ VAGIN OSIS, DNA PROBE gardnerella vag. detection, direct probe Positi ve negati ve abnormal Not Available [facility] [address] [place], [address], 02/24/2022 10:27:55 02/20/20 22 02/19/2022 VAGIN ITIS/ VAGIN OSIS, DNA PROBE trichomonas vag. detection, direct probe Negati ve negati ve Not Available [facility] [address] [place], [address], 02/24/2022 10:27:55 02/20/20 22 02/19/2022 IMAGE GUIDE D PAP AND HPV REGAR DLESS image guided Pap, HPV regardless of Pap result SEE RESULT S BELOW CASE REPOR T: Cytol ogy Gynec ologi kumar Repor t Case: [id number] Autho christal g Provi tammie: Sue Friend, SHU Colle cted: 02/19 1332 Order ing Locat ion: [place] [facility] Recei shirley: 02/20 0155 First Scree n: Sabrina Carvajal ret, CT Speci men: Scree lexi Pap - Image d, Cervi x STATE MENT OF ADEQU ACY: Satis facto ry for evalu ation Trans forma tion zone compo nent prese nt FINAL DIAGN OSIS: Negat lottie for Intra epith elial Lesio n or Preston wagner (NIL) . Kvng barbosa natalia d by Sabrina Carvajal ret, CT on 2021 at 9:24 AM ----- ----- ----- ----- ----- ----- ----- ----- ----- ----- ----- ----- ----- ----- ----- ----- ----- ---- HPV RESUL TS: HPV mRNA E6/E7 : No HPV mRNA Detec nico NOTE: This high risk HPV mRNA assay detec ts fourt een high- risk HPV types (16, 18, 31, 33, 35, 39, 45, 51, 52, 56, 58, 59, 66, 68) witho ut diffe renti ation . COMME NT: Note: This speci men was revie wed by a Cytot echno logis t and/o r Patho logis t (as indic ated in this repor t) after evalu ation using the Thinp rep Imagi ng Syste m. CLINI KUMAR INFOR MATIO N: Menst rual Statu s: LMP (if appli cable ): Clini kumar Histo ry/Pr eviou s Pap: Type of Neopl jose (if appli cable ): Signi fican t Clini kumar Findi ngs: Other Histo ry: Hormo homero (if appli cable ): PAP EDUCA GEOVANNY L NOTE: The Pap Test is a scree lexi test with an inher ent false negat lottie rate. Liqui d-bas ed sampl ing may decre ase, but will not elimi chuyita, false negat lottie resul ts. A negat lottie resul t does not precl ude the prese nce and/o r devel opmen t of disea se, since the prese nce of abnor mal cells in the sampl e depen ds on the locat ion of the lesio n and sampl ing techn ique. [place] nued regul ar scree lexi is the best metho d of cance r preve ntion . If repor nico cytol ogic findi ng do not corre late with physi kumar and/o r histo rical findi ngs, furth er inves tigat ion is recom namita d, as clini devendra beyer nted. Not Available [facility] [address] [place], [address], 02/24/2022 10:27:56 08/13/19 23 08/13/2022 CT/GC AND TRICH OMONA S VAGIN FOREST (RRNA ), SWAB chlamydia trachomatis, PCR Negati ve negati ve Not Available [facility] (Lab) [address] [place], [address], 08/14/2022 22:02:36 08/13/19 23 08/13/2022 CT/GC AND TRICH OMONA S VAGIN FOREST (RRNA ), SWAB neisseria gonorrhoeae, PCR Negati ve negati ve Not Available [facility] (Lab) [address], [place], [address], 08/14/2022 22:02:36 08/13/19 23 08/13/2022 CT/GC AND TRICH OMONA S VAGIN FOREST (RRNA ), SWAB trichomonas vaginalis ribosomal RNA (rrna) Negati ve negati ve Not Available [facility] (Lab) [address] [place], [address], 08/14/2022 22:02:36 08/13/19 23 08/13/2022 VAGIN ITIS/ VAGIN OSIS, DNA PROBE warren sp. detection, direct probe Negati ve negati ve Not Available [facility] (Lab) [address] [place], [address], 08/14/2022 22:02:36 08/13/19 23 08/13/2022 VAGIN ITIS/ VAGIN OSIS, DNA PROBE gardnerella vag. detection, direct probe Negati ve negati ve Not Available [facility] (Lab) [address] [place], [address], 08/14/2022 22:02:36 08/13/19 23 08/13/2022 VAGIN ITIS/ VAGIN OSIS, DNA PROBE trichomonas vag. detection, direct probe Negati ve negati ve Not Available [facility] (Lab) [address] [place], [address], 08/14/2022 22:02:36 01/05/20 25 01/04/2025 WOMEN 'S HEALT H SWAB, ELVA bacterial vaginosis (bv), tma Negati ve negati ve This test detec ts ribos omal RNA from bacte jennifer assoc iated with bacte rial vagin osis (BV), inclu ding Lacto bacil kristine (L. gasse ri, L. crisp atus and L. jense dina), Gardn erell a vagin forest, and Atopo bium vagin ae by Trans cript ion-M ediat ed Ampli ficat ion (TMA) . A singl e quali tativ e resul t is repor nico based on instr ument softw are to deter mine BV posit lottie or negat lottie statu s. Not Available [facility] (Lab) [address] [place], [address], 01/05/2025 11:33:25 01/05/20 25 01/04/2025 WOMEN 'S HEALT H SWAB, ELVA warren species, tma Negati ve negati ve Not Available [facility] (Lab) [address] [place], [address], 01/05/2025 11:33:25 01/05/20 25 01/04/2025 WOMEN 'S HEALT H SWAB, ELVA warren glabrata, tma Negati ve negati ve Not Available [facility] (Lab) [address] [place], [address], 01/05/2025 11:33:25 01/05/20 25 01/04/2025 WOMEN 'S HEALT H SWAB, ELVA trichomonas vaginalis, tma Negati ve negati ve This assay tests for and diffe renti ates betwe en Rola da glabr michael, the Rola da speci es group (C. albic ans, C. tropi calis , C. parap grant is, C. dubli niens is), and Trich omona s vagin forest by Trans cript ion-M ediat ed Ampli ficat ion (TMA) . Not Available [facility] (Lab) [address] [place], [address], 01/05/2025 11:33:25 Result Notes None recorded. Problems No Known Problems Procedures Surgical History Date Name Laterality Status Provider Name and Address Organization Details Recorded Time 7 section completed [facility] 01/04/2025 17:13:24 2 section completed [facility] 01/04/2025 17:13:17 1 section completed [facility] 01/04/2025 17:13:09 Imaging Results None recorded. Procedure Notes None recorded. Medical Equipment None Reported. Allergies Allergen ID Allergen Name Allergen Category Reaction Reaction Severity Criticality Documentation Date Start Date Code Code System Note Provider Name and Address Organization Details Recorded Time 60009 metronida zole medicatio n Not available Not available Not available 02/01/2025 6922 RxNorm Ana Shirley carlos [facility] 12:02:48 Medications Name Sig Start Date Stop Date Status Note LastModified by Organization Details LastModified Time losartan 50 mg tablet TAKE 1 TABLET BY MOUTH ONCE DAILY active Not Available Not Available No t Available cyclobenzap rine 10 mg tablet TAKE 1 TABLET BY MOUTH THREE TIMES DAILY NEEDED FOR MUSCLE SPASM 01/04 completed Not Available Not Available Not Available methocarbam ol 500 mg tablet TAKE 2 TABLETS BY MOUTH 4 TIMES DAILY NEEDED 01/04 completed Not Available Not Available Not Available fluconazole 150 mg tablet TAKE 1 TABLET BY MOUTH NOW AND REPEAT IN 7 DAYS 02/01 completed Not Available Not Available Not Available metronidazo le 0.75 % (37.5 mg/5 gram) vaginal gel Insert 1 applicato rful every day by vaginal route at bedtime for 5 days. 08/13 completed Not Available Not Available Not Available metronidazo le 500 mg tablet TAKE 1 TABLET BY MOUTH EVERY 12 HOURS FOR 7 DAYS 02/01 completed Not Available Not Available Not Available amlodipine 5 mg tablet TAKE 1 TABLET BY MOUTH EVERY DAY active Not Available Not Available No t Available triamcinolo ne acetonide 0.1 % topical cream APPLY TO EXTERNAL TISSUES TWICE DAILY FOR 7 DAYS 08/13 completed Not Available Not Available Not Available carvedilol 3.125 mg tablet TAKE 1 TABLET BY MOUTH ONCE DAILY active Not Available Not Available No t Available nystatin-tr iamcinolone 100,000 unit/gram-0 .1 % topical ointment APPLY TO THE AFFECTED AREA(S) BY TOPICAL ROUTE 2 TIMES PER DAY FOR 7 DAYS 01/04 completed Not Available Not Available Not Available metformin 1,000 mg tablet TAKE 1 TABLET BY MOUTH TWICE DAILY WITH MEALS active Not Available Not Available No t Available nystatin 100,000 unit/gram topical cream APPLY TO EXTERNAL TISSUES TWICE DAILY FOR 7 DAYS 02/19 completed Not Available Not Available Not Available niacin 500 mg tablet Take 1 tablet 3 times a day by oral route. active Not Available [...] 1 SPRAY(S) IN EACH NOSTRIL TWICE DAILY 01/04 completed Not Available Not Available Not Available naproxen 500 mg tablet TAKE 1 TABLET BY MOUTH TWICE DAILY WITH MEALS 01/04 completed Not Available Not Available Not Available insulin lispro (U-100) 100 unit/mL subcutaneou s pen INJECT 20 UNITS SUBCUTANE OUSLY BEFORE BREAKFAST , THEN INJECT 10 UNITS SUBCUTANE OUSLY BEFORE LUNCH AND DINNER. SLIDING SCALE 200-250: 2 UNITS, 251-300: 3 UNITS, 301-350: 4 UNITS, 351-400: 5 UNITS, >401: 6 UNITS. active Not Available Not Available No t Available rosuvastati n 20 mg tablet TAKE 1 TABLET BY MOUTH EVERY OTHER DAY 02/19 completed Not Available Not Available Not Available rosuvastati n 40 mg tablet TAKE 1 TABLET BY MOUTH ONCE DAILY 01/04 completed Not Available Not Available Not Available nitrofurant oin monohydrate /macrocryst als 100 mg capsule TAKE 1 CAPSULE BY MOUTH EVERY 12 HOURS FOR 5 DAYS 01/04 completed Not Available Not Available Not Available BD Ultra-Fine Mini Pen Needle 31 gauge x 3/16 USE 1 4 TIMES DAILY 01/04 completed Not Available Not Available Not Available omeprazole active Not Available Not Av ailable Not Available Vitamin D3 active Not Available Not Av ailable Not Available Jardiance 10 mg tablet TAKE 1 TABLET BY MOUTH ONCE DAILY 01/04 completed Not Available Not Available Not Available Jardiance 25 mg tablet TAKE 1 TABLET BY MOUTH IN THE MORNING 01/04 completed Not Available Not Available Not Available Stefania Rose U-300 Insulin 300 unit/mL (1.5 mL) subcutaneou s pen INJECT 30 UNITS SUBCUTANE OUSLY ONCE DAILY 01/04 completed Not Available Not Available Not Available Humalog KwikPen U-200 Insulin 200 unit/mL (3 mL) subcutaneou s Inject by subcutane ous route. active Not Available Not Available No t Available Basaglar KwikPen U-100 Insulin 100 unit/mL (3 mL) subcutaneou s INJECT 30 UNITS SUBCUTANE OUSLY ONCE DAILY AT BEDTIME active Not Available Not Available No t Available Toujeo Max U-300 SoloStar 300 unit/mL (3 mL) subcutaneou s insulin pen INJECT 30 UNITS SUBCUTANE OUSLY ONCE DAILY 01/04 completed Not Available Not Available Not Available Ozempic 1 mg/dose (4 mg/3 mL) subcutaneou s pen injector INJECT 1MG SUBCUTANE OUSLY EVERY 7 DAYS active Not Available Not Available No t Available aspirin 81 mg capsule Take 1 capsule every day by oral route. active Not Available Not Available No t Available Mounjaro 5 mg/0.5 mL subcutaneou s pen injector INJECT 5 MG (0.5ML) SUBCUTANE OUSLY WEEKLY 01/04 completed Not Available Not Available Not Available Dexcom G7 Sensor device USE DIRECTED. CHANGE EVERY 10 DAYS active Not Available Not Available No t Available Ozempic 0.25 mg or 0.5 mg (2 mg/3 mL) subcutaneou s pen injector INJECT 0.5MG SUBCUTANE OUSLY EVERY WEEK 01/04 completed Not Available Not Available Not Available Malou 2nd Gen Pen Needle 32 gauge x 5/32 1 PEN NEEDLE 4 TIMES DAILY active Not Available Not Available No t Available Vitals Date Recorded Body height Body mass index (BMI) Body weight Systolic And Diastolic Provider Name and Address Organization Details Last Updated DateTime 08/13/2022 168.91 cm 27.1 kg/m2 24487.42 g 124/76 mm[Hg] [facility] 08/13/2022 16:28:43 Date Recorded Body height Systolic And Diastolic Provider Name and Address Organization Details Last Updated DateTime 08/26/2022 168.91 cm 118/80 mm[Hg] [facility] 08/26/2022 16:46:55 Date Recorded Body height Body mass index (BMI) Body weight Systolic And Diastolic Provider Name and Address Organization Details Last Updated DateTime 01/04/2025 168.91 cm 26.4 kg/m2 53855.33 g 135/81 mm[Hg] [facility] 01/04/2025 15:10:14 Date Recorded Body height Body mass index (BMI) Body weight Systolic And Diastolic Provider Name and Address Organization Details Last Updated DateTime 02/01/2025 168.91 cm 26.6 kg/m2 84189.93 g 143/83 mm[Hg] [facility] 02/01/2025 12:00:43 Date Recorded Body height Body mass index (BMI) Body weight Systolic And Diastolic Provider Name and Address Organization Details Last Updated DateTime 02/19/2022 168.91 cm 27.1 kg/m2 15262.42 g 150/83 mm[Hg] Ann Wesley [facility] 02/19/2022 12:20:59 Social History Question Answer Notes LastModified by Organizat ion Details LastModified Time Tobacco Smoking Status Never Smoker Ann Maryjane [facility] 02/19/2022 12:24:44 Are You Blind Or Do You Have Difficulty Seeing? No Information n ot available 02/19/2022 In The 14 Days Before Symptom Onset, Have You Had Close Contact With A Laboratory-confirm ed COVID-19 While That Case Was Ill? No [email or web address] Information n ot available 01/04/2025 In The 14 Days Before Symptom Onset, Have You Had Close Contact With A Person Who Is Under Investigation For COVID-19 While That Person Was Ill? No [email or web address] Information not available 01/04/2025 Have You Been To An Area Known To Be High Risk For COVID-19? No [email or web address] Information not available 01/04/2025 Are You Deaf Or Do You Have Serious Difficulty Hearing? No Information not available 02/19/2022 What Type Of Diet Are You Following? REGULAR Information n ot available 02/19/2022 Do You Have Difficulty Walking Or Climbing Stairs? No Information not available 02/19/2022 Sex: Unknown Functional Status Question Answer Note LastModified by Organizat ion Details LastModified Time What is your level of alcohol consumption? None Information not available 02/19/2022 Are you able to walk independently without assistance or assistive devices? YESWOREST Information not available 02/19/2022 Are you able to care for yourself independently? Yes Information not available 02/19/2022 Do you have difficulty dressing, bathing, grooming, or toileting? No Information not available 02/19/2022 What is your exercise level? Occasional Information not available 02/19/2022 Mental Status None recorded. Family History Relationship Description Onset Age of this Age Resolved Age Notes LastModified by Organization Details LastModified Time Mother Diabetes mellitus [email or web address] Not available 02/07 12:22:54 Mother Hypertensive disorder [email or web address] Not available 02/07 12:23:04 Father Diabetes mellitus [email or web address] Not available 02/07 12:23:18 Father Hypertensive disorder [email or web address] Not available 02/07 12:23:35 Sister Diabetes mellitus [email or web address] Not available 02/07 12:23:44 Brother Diabetes mellitus [email or web address] Not available 02/07 12:23:49 Medical History Condition Response Allergies (Food, seasonal, environmental ) N Other N Breast Cancer N Drug/Latex Allergies/Reactions N Blood Transfusion N Dermatologic Disorders N Lung Disease N Defects or Inherited Disease N Breast Problem N Gestational Diabetes N Hematologic disorders N Anesthesia Complications N History of STI N Deep Vein Thrombosis N Polycystic ovary syndrome N Anxiety Disorder N Autoimmune disease N Arthritis N Infertility N Polyps N Acid Reflux (GERD) N History of abnormal pap N Cancer N Stroke N Varicosities N Neurologic/Epilepsy N Endometriosis N High Cholesterol Y Headaches N Fibromyalgia N Kidney Disease N Heart Problems N Kidney or Bladder Problems N Thyroid Problems N GI Problems N Eating Disorder N Anemia N Art (IVF or FET) N Psychiatric Illness N Ovarian Cancer N Diabetes Y Pulmonary (TB, Asthma) N Hepatitis/Liver Disease N No Past Medical History N Eczema N Urinary Tract Infection N Abuse/Domestic Violence N Asthma N Trauma/Violence N Depression/ depression N Heart Disease N Pre-Eclampsia N Hypertension Y Osteoporosis N Thrombophilias N Gynecological History Statement/Question Response Abnormal Pap N Date of Last Mammogram Date of LMP STIs/STDs N HPV Vaccine N Current Control Method Menopause Date of Last Colonoscopy Sexually Active? N Menses Monthly N Date of DEXA bone scan Date of Last Pap Smear Sexual Problems? N Obstetrics History GPAL:G 5 P 5 0 0 5 Type Value Full Term 5 Living 5 Total 5 Past Encounters Encounter ID Performer Location Encounter Start Date Encounter Closed Date Diagnosis/Indication Diagnosis SNOMED-CT Code Diagnosis ICD10 Code Diagnosis IMO Codes Diagnosis Note [id number] KIMBERLY Carrizales [place] [address] [address] 02/19/2022 11:50:43 02/19/2022 14:28:27 Gynecologic examination 01041271 Z01.419 Take Calcium with Vitamin D 12-1500mg daily. Do monthly self breast exams. It is advised to get annual flu shot in the fall and she could obtain at [facility] or [facility] clinic. If you haven't received the Tdap vaccine in the last 10 years you should obtain one as well. Have mammogram yearly, bone density every 2-3 years and colonoscop y every 5-10 years depending on findings and history. Engage in daily exercise of low impact aerobic exercise 45-60 minutes 4-5 times weekly. Avoid tobacco and illicit drugs as well as using moderation with alcohol intake less than 1-2 8 oz beverages daily. This lifestyle behavior pattern will lead to less health conditions and longer life span. If BMI greater than 25 weight watchers or dietary consult advised. Questions have been answered. Patient appears to understand instructio ns, but if you have any further questions call or respond to this email WWEMedical hx: Diabetes, HTN, Elevated cholestero lBP today 150/83, no symptoms. She checks BP at home, has not had BP medication today. Encouraged her to take her BP medication as prescribed , monitor BP and notify PCP if elevation continues. No hx of abnormal paps per patientPap done todayHas been having a vaginal odor x 1 week. No discharge, irritation , or itching.Va ginitis panel sentNormal speculum exam.We agreed to wait for the vaginitis panel. Vulvar care guidelines discussed, encouraged her to discontinu e vaginal washes/soa ps, cotton underwear, sleep with no underwear. Crisco to vulva twice daily, use this as lubricatio n with intercours eHas mammogram scheduledU TD with colonoscop yDexa? unsure when last hadRTC in 1 year or sooner if needed Vaginal odor [id number] N 89.8 [id number] KIMBERLY Carrizales [place] [address] [address] 08/13/2022 16:10:46 08/13/2022 18:21:05 Vaginitis 31738753 N76.0 Vulvar irritation noted on exam, d/c suspicious for yeastVagin itis panel sentSTI testing sentVulvar care guidelines discussed- Cotton underwear only-Sleep with no underwear, loose clothing-N o vaginal washes/soa ps/product s-Free and clear laundry productsVu lvar care guidelines handout given to patientDis cussed associated with diabetes / jardiance use with recurrent yeast infections . Discussed importance of BS control. Encouraged her to discuss recurrent yeast infections related to jardiance use with her provider that prescribes the jardiance to see if there is any alternativ e options. Practice strict vulvar care guidelines to help prevent recurrent yeast infections .May consider vaginal estrogen as well if symptoms continueSt rict use of crisco twice daily to vulva encouraged Rx sent for yeast, R/B of medication discussed and accepted by patient Time spent in visit is a total of 30 mins with at least 50% of visit consisting of counseling and review of plan of care. Venereal d isease screening [id number] Z11.3 [id number] KIMBERLY Carrizales [place] [address] [address] 08/26/2022 16:33:43 08/26/2022 17:07:16 Vulval irritation 758968836 N90.89 Feeling SO much better!Sym ptoms have resolvedCo ntinue with crisco twice daily to vulva - use this as lubricatio n with ICRTC for WWE or sooner if needed Time spent in visit is a total of 15 mins with at least 50% of visit consisting of counseling and review of plan of care. [id number] KIMBERLY Carrizales [place] [address] [address] 01/04/2025 14:32:09 01/04/2025 16:37:07 Acute vaginitis 07958141 N76.0 18305 vaginitis panel sentvulvar care guidelines reviewedrx sent for BV/yeast, r/b/a reviewed Vaginal dryness 43890875 N89.8 192749 management options reviewedve g based moisturize r routine discussedr x vaginal estradiol cream, r/b/a reviewedRT C for WWE Time spent in visit is a total of 25 mins with at least 50% of visit consisting of counseling and review of plan of care. [id number] KIMBERLY Carrizales [place] [address] [address] 02/01/2025 11:30:59 02/02/2025 11:55:48 Vaginal dryness 09035399 N89.8 [id number] vaginitis symptoms resolved with BV/yeast treatmentd iscussed vaginal estrogen cream for dryness/ir ritationqu estions answered, RTC for WWE or sooner if needed BP precaution s discussed, encouraged PCP f/u Time spent in visit is a total of 20 mins with at least 50% of visit consisting of counseling and review of plan of care. Health Concerns Section Related Observation LastModified by Organization Detai ls LastModified Time None Recorded Concern Status LastModified by Organization Details LastModified Time None Recorded Advance Directives Directive None Recorded Payers Insurance Date Sequence Insurance Name Policy Number Policy Vaughn Covered Member ID Vaughn Member ID Guarantor Name 01/29/2025 1 [facility] [place] [id number] Ayo Rodriguez [id number] Clare Rodriguez 12/26/2024 1 [facility] [id number] Clare Rodriguez [id number] Clare Rodriguez 08/12/2022 1 [facility] Ayo Rodriguez [id number] Clare Rodriguez Notes Date Note Type Note Provider Name and Address Organization Details Recorded Time 2 text/html 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 For vaginal bleeding, patient reportshistory of menopause having occurredandno history of post menopausal bleeding. For urinary symptoms, patient reportsno hematuria,no incontinence,no nocturia, andno urinary frequency. For vulva, patient reportsno genital lesionandno vulvar atrophy. For vagina, patient reportsnormal vaginal dischargeandno vaginal atrophy.Breast symptomsFor breast, patient reportsno breast lump,no nipple discharge, andno breast pain.Psychological symptomsFor sexual complaints, patient reportsno sexual complaints. For psychological symptoms, patient reportsno depressionandno anxiety.Preventative measuresFor preventive measures, patient reportsencourage regular mammograms starting age 40,encourage self breast examination,encourage regular exercise, andencourage no tobacco use. KIMBERLY Carrizales [address], [place], [address], [facility] 02/19/2022 13:38:14 3 text/html Vaginal/Vulvar ProblemReported by Patient 62yo presents for vulvar irritation and itchingSlight vaginal odor that smells like chicken greaseSymptoms have been present on and off x 2 yearsVulvar feels very irritated/inflamedClumpy dischargeMedical hx : HTN, diabetes, elevated cholesterolSymptoms started around same time as she started jardianceSA with male partner KIMBERLY Carrizales [address], [place], [address], [facility] 08/13/2022 17:43:38 3 text/html 62yo Presents for vulvar checkFeeling SO much better since treated for yeast at LOVSymptoms have resolvedUsing crisco twice daily to vulva KIMBERLY Carrizales [address], [place], [address], [facility] 08/26/2022 17:03:53 5 text/html Vaginal/Vulvar ProblemReported by Patient 64yopresents for evaluation of vaginal itching/irritation, discharge, odorsymptoms present 3+ monthsitching, irritation, dryness, pain with ICstrong odor neg pelvic painneg PMBneg n/v/f Ana Shirley null, [facility] 01/04/2025 16:44:18 5 text/html 64yopresents for med check (estradiol cream)completed medication course for BV/yeast and odor/itching resolvedhas not started using estrogen cream yet Sue Friend, WHNP [address], [place], [address], [facility] 02/02/2025 11:34:13 OBGyn Episode Ob Episode Information Episode Created Date Number of Fetuses Patient Bloodtype Patient rh Status Prepregnancy Weight lbs Domestic Partner Domestic Partner Phone Father Name Ground Wood Supervisor Status 01/05/20 1 CLOSED Fetus Data First Name Last Name Admitted to NICU Weight (g) Sex Living Outcome Pediatric Complications Fetus ID Race Codes Race Delivery Type Full Term [id number] Repeat Miguelangel Calculation Initial Miguelangel Date Initial Exam Date Initial Exam Provider Initial Ultrasound Date Last Menstrual Period Date Ultra Sound Weeks Gestation 0 Eighteen To Twenty Week Miguelangel Update Ultra Sound Date Fundal Height At Umbil Quickening Date Ultra Sound Latest Weeks Gestation Final Miguelangel Confirmed By Final Miguelangel Confirmed Date Final Miguelangel Date Ultra Sound Latest Days Gestation 0 0 Menstrual History Last Menstrual Date Menses Monthly On Bcp Conception Prior Menses Frequency Hcg Plus Date Menarche Onset Age Delivery Information Delivery Date Delivery Type Labor Anesthesia Weeks Gestation Incision Type Labor Labor Length Hrs Delivered By Post Complications Tubal Sterilization Discharge Date Comments 2 Discharge Information Feeding Method Contraceptive Method Maternal HG B and HCT Levels Ob Episode Information Episode Created Date Number of Fetuses Patient Bloodtype Patient rh Status Prepregnancy Weight lbs Domestic Partner Domestic Partner Phone Father Name Ground Wood Supervisor Status 01/05/20 1 CLOSED Fetus Data First Name Last Name Admitted to NICU Weight (g) Sex Living Outcome Pediatric Complications Fetus ID Race Codes Race Delivery Type Full Term [id number] Repeat Miguelangel Calculation Initial Miguelangel Date Initial Exam Date Initial Exam Provider Initial Ultrasound Date Last Menstrual Period Date Ultra Sound Weeks Gestation 0 Eighteen To Twenty Week Miguelangel Update Ultra Sound Date Fundal Height At Umbil Quickening Date Ultra Sound Latest Weeks Gestation Final Miguelangel Confirmed By Final Miguelangel Confirmed Date Final Miguelangel Date Ultra Sound Latest Days Gestation 0 0 Menstrual History Last Menstrual Date Menses Monthly On Bcp Conception Prior Menses Frequency Hcg Plus Date Menarche Onset Age Delivery Information Delivery Date Delivery Type Labor Anesthesia Weeks Gestation Incision Type Labor Labor Length Hrs Delivered By Post Complications Tubal Sterilization Discharge Date Comments 7 Discharge Information Feeding Method Contraceptive Method Maternal HG B and HCT Levels Ob Episode Information Episode Created Date Number of Fetuses Patient Bloodtype Patient rh Status Prepregnancy Weight lbs Domestic Partner Domestic Partner Phone Father Name Ground Wood Supervisor Status 01/05/20 25 1 CLOSED Fetus Data First Name Last Name Admitted to NICU Weight (g) Sex Living Outcome Pediatric Complications Fetus ID Race Codes Race Delivery Type Full Term [id number] Primary Miguelangel Calculation Initial Miguelangel Date Initial Exam Date Initial Exam Provider Initial Ultrasound Date Last Menstrual Period Date Ultra Sound Weeks Gestation 0 Eighteen To Twenty Week Miguelangel Update Ultra Sound Date Fundal Height At Umbil Quickening Date Ultra Sound Latest Weeks Gestation Final Miguelangel Confirmed By Final Miguelangel Confirmed Date Final Miguelangel Date Ultra Sound Latest Days Gestation 0 0 Menstrual History Last Menstrual Date Menses Monthly On Bcp Conception Prior Menses Frequency Hcg Plus Date Menarche Onset Age Delivery Information Delivery Date Delivery Type Labor Anesthesia Weeks Gestation Incision Type Labor Labor Length Hrs Delivered By Post Complications Tubal Sterilization Discharge Date Comments 1 Discharge Information Feeding Method Contraceptive Method Maternal HG B and HCT Levels Ob Episode Information Episode Created Date Number of Fetuses Patient Bloodtype Patient rh Status Prepregnancy Weight lbs Domestic Partner Domestic Partner Phone Father Name Ground Wood Supervisor Status 01/05/20 25 1 CLOSED Fetus Data First Name Last Name Admitted to NICU Weight (g) Sex Living Outcome Pediatric Complications Fetus ID Race Codes Race Delivery Type Full Term [id number] Vaginal Delivery Miguelangel Calculation Initial Miguelangel Date Initial Exam Date Initial Exam Provider Initial Ultrasound Date Last Menstrual Period Date Ultra Sound Weeks Gestation 0 Eighteen To Twenty Week Miguelangel Update Ultra Sound Date Fundal Height At Umbil Quickening Date Ultra Sound Latest Weeks Gestation Final Miguelangel Confirmed By Final Miguelangel Confirmed Date Final Miguelangel Date Ultra Sound Latest Days Gestation 0 0 Menstrual History Last Menstrual Date Menses Monthly On Bcp Conception Prior Menses Frequency Hcg Plus Date Menarche Onset Age Delivery Information Delivery Date Delivery Type Labor Anesthesia Weeks Gestation Incision Type Labor Labor Length Hrs Delivered By Post Complications Tubal Sterilization Discharge Date Comments 9 Discharge Information Feeding Method Contraceptive Method Maternal HG B and HCT Levels Ob Episode Information Episode Created Date Number of Fetuses Patient Bloodtype Patient rh Status Prepregnancy Weight lbs Domestic Partner Domestic Partner Phone Father Name Ground Wood Supervisor Status 01/05/20 25 1 CLOSED Fetus Data First Name Last Name Admitted to NICU Weight (g) Sex Living Outcome Pediatric Complications Fetus ID Race Codes Race Delivery Type Full Term [id number] Vaginal Delivery Miugelangel Calculation Initial Miguelangel Date Initial Exam Date Initial Exam Provider Initial Ultrasound Date Last Menstrual Period Date Ultra Sound Weeks Gestation 0 Eighteen To Twenty Week Miguelangel Update Ultra Sound Date Fundal Height At Umbil Quickening Date Ultra Sound Latest Weeks Gestation Final Miguelangel Confirmed By Final Miguelangel Confirmed Date Final Miguelangel Date Ultra Sound Latest Days Gestation 0 0 Menstrual History Last Menstrual Date Menses Monthly On Bcp Conception Prior Menses Frequency Hcg Plus Date Menarche Onset Age Delivery Information Delivery Date Delivery Type Labor Anesthesia Weeks Gestation Incision Type Labor Labor Length Hrs Delivered By Post Complications Tubal Sterilization Discharge Date Comments 7 Discharge Information Feeding Method Contraceptive Method Maternal HG B and HCT Levels
--- OUTSIDE RECORDS SUMMARY | 2025-06-30 10:15 | XMS_ITS | Continuity of Care Document ---
Author Organization [place] - [facility], [facility] Address [address] [facility] [address] [place] [address] Assessment No assessment recorded. Plan of Treatment Reminders Order Date Submit Date Provider Last Modified By Organization Details Last Modified Time Details Appointments Follow Up 15 2025 01:30P M Lan Cooper MD Not available Not available Not available Lab lipid panel, serum 2024 025 [facility], [address] [facility], [place], [address], 06/28/2025 04:04:12 glucose, fingersti ck, blood [address], [address] [facility] [address], [place], [address], 06/21/2025 17:51:43 HbA1c (hemoglob in A1c), blood 2024 025 [facility], [address] [facility], [place], [address], 06/28/2025 04:04:11 microalbu min/creat inine, mass ratio, urine 2024 025 [facility], [address] [facility], [place], [address], 06/28/2025 04:04:11 CMP, serum or plasma 2024 [facility], [address], [place], [address], 06/28/2025 04:04:11 vitamin D, 25-hydrox y, total, serum 2024 [facility], [address], [place], [address], 06/28/2025 04:04:11 TSH, serum or plasma 2024 [facility], [address], [place], [address], 06/28/2025 04:04:12 CBC w/ auto diff 2024 [facility], [address], [place], [address], 06/28/2025 04:04:12 urinalysi s complete, reflex culture 2024 [facility], [address], [place], [address], 06/28/2025 04:04:13 TSH, serum, reflex free T4 2024 [facility], [address], [place], [address], 06/28/2025 04:04:13 lipid panel w/ direct LDL, serum 2024 [facility], [address], [place], [address], 06/28/2025 04:04:13 uric acid, serum or plasma 2024 [facility], [place], [address], 06/28/2025 04:04:12 CMP, serum or plasma 2024 [facility], [address] [facility], [place], [address], 06/28/2025 04:04:12 Referral None recorded. Procedures None recorded. Surgeries None recorded. Imaging MAMMO, screening , digital, bilateral [address], [facility] [place], [address], 06/21/2025 17:55:18 home sleep study 2024 [facility], [address], [address], [place], [address], 06/28/2025 04:04:10 Medication Orders clobetaso l 0.05 % topical cream 2024 [facility] [address], [address] , [place], [address], 06/21/2025 17:51:53 Patient TargetsNo targets recorded. Patient Instructions Encounter Date Encounter Id Patient Instructions Last Modified By Organization Details Last Modified Time 06/21/2025 [id number] mammogram: about this test [email or web address] Not available 06/21/2025 17:51:42 snoring: care instructions [email or web address] Not available 06/21/2025 17:51:43 rash: care instructions [email or web address] Not available 06/21/2025 17:51:42 psoriasis: care instructions [email or web address] Not available 06/21/2025 17:51:42 learning about healthy weight [email or web address] Not available 06/21/2025 17:51:42 I spent a total of __32____ minutes (excluding separately reportable procedure time ) in care of this patient. [email or web address] Not available 06/21/2025 17:46:31 Reason for Referral None Reported. Results Created Date Observation Date Name Description Value Unit Range Abnormal Flag Note LastModifiedBy Organization Detail LastModifiedTime 06/21/20 25 06/21/2025 gluco se, liana rsmariana k, blood Blood Glucose: mg/dl 143 Not Available [facility] [address] [facility] [address], [place], [address], 06/21/2025 17:14:15 Result Notes None recorded. Problems Name Problem SNOMED Code Status Onset Date Resolution Date Notes Provider Name and Address Organization Details Recorded Time Chronic neck pain 47553260769 07 Active Chronic neck pain Not Available [facility] 3 10:47:30 Long-ter m current use of insulin 679876391 Active Long-ter m current use of insulin Not Available [facility] 3 10:47:30 Localize d, primary osteoart hritis of the shoulder region 435622994 Active Localize d, primary osteoart hritis of the shoulder region Not Available [facility] 3 10:47:30 [facility] hyperten kylah 62190466 Active [facility] hyperten kylah Not Available [facility] 3 10:47:30 Vitamin D deficien cy 86778294 Active Vitamin D deficien cy Not Available [facility] 3 10:47:30 Type 2 diabetes mellitus without complica tion 598030154 Completed 03/16/2023 Type II diabetes mellitus without complica tion Lan Cooper MD [address] [facility] [address], [place], [address] , [facility] - [facility] 3 15:54:46 Chronic low back pain 723921711 Active Chronic low back pain Not Available [facility] 3 10:47:30 Type 2 diabetes mellitus 98290224 Active 2022 Not Available [facility] 3 10:47:30 Mixed hyperlip idemia 903256785 Active 2022 Not Available [facility] 3 10:47:30 Trigger finger of right hand 31049620261 273619 Active 2022 Not Available [facility] 3 10:47:30 Liver enzymes level above referenc e range 034254365 Active 2022 Not Available [facility] 3 10:47:30 Herpes zoster 6654514 Completed 202210/06/2024 Lan Cooper MD [address] [facility] [address], [place], [address] , [facility] 5 16:54:46 Degenera tion of lumbar interver tebral disc 39560989 Active 2024 MD Kadi Stanley[address] [facility] [address], [place], [address] , [facility] 5 17:03:54 Body mass index 25-29 - overweig ht 626461804 Active 2024 Lan Cooper MD [address] [facility] [address], [place], [address] , [facility] 5 16:22:50 Tinnitus of right ear 77910004565 08 Active 2024 Lan Cooper MD [address] [facility] [address], [place], [address] , [facility] 5 16:24:01 Snoring 94480224 Active 2024 Lan Cooper MD [address] [facility] [address], [place], [address] , [facility] 5 16:24:18 Eruption 021843217 Active 2024 MD Kadi [address] [facility] [address], [place], [address] , [facility] 5 12:33:40 Uncontro lled type 2 diabetes mellitus 180132311 Active 2024 [facility] 10:53:51 Psoriasi s 2064611 Active 2024 Ryanne Pascal [facility] 12:19:35 Problem Notes None recorded. Medical Equipment [...] Not Available Not Available No t Available Stefania NielsonoStar U-300 Insulin 30 units at night 06/14 completed Not Available Not Available Not Available Basaglar KwikPen U-100 Insulin 100 unit/mL (3 mL) subcutaneou s INJECT 30 UNITS SUBCUTANE OUSLY ONCE DAILY AT BEDTIME active Not Available Not Available No t Available Stefania Max U-300 SoloStar 300 unit/mL (3 mL) [...] Gen Pen Needle 32 gauge x 5/32 USE TO INJECT FOUR TIMES DAILY active Not Available Not Available No t Available Vitals Date Recorded Body temperature Body mass index (BMI) Body weight Heart rate Respiratory rate Oxygen saturation Systolic And Diastolic Provider Name and Address Organization Details Last Updated DateTime 97.1 [degF] 26.2 kg/m2 91678.9 3 g 85 /min 18 /min 97 % 120/77 mm[Hg] Lan Cooper MD [address] [facility] [address] [facility] [address], [place], [address], [facility] 17:09:10 Date Recorded Body height Provider Name an d Address Organization Details Last Updated DateTime 06/21/2025 170.18 cm Aissatou Carreon [facility] 06/21/2025 17:03:31 Social History None [...] N Breast Cancer N Blood Transfusion N Depression N COPD N Lung Disease N Hypothyroidism N Developmental or Behavioral Disorders N Defects or Inherited Disease N Breast Problem N Difficulty Swallowing N [...] N Heart Disease N Pulmonary Embolism N Pre-Eclampsia N Hypertension Y Chronic Ear Infections N Osteoporosis N Chicken Pox N Autism Spectrum Disorder (ASD) N Thrombophilias N Gynecological HistoryNo gynecological history recorded. Obstetrics History GPAL:G 0 P 0 0 0 0 Immunizations Vaccine Type Date Status Note Provider Nam e and Address Organization Details Recorded Time COVID-19, mRNA, LNP-S, PF, 30 mcg/0.3 mL dose 08/25/2021 completed Lan Cooper MD [address] [facility] [address], [place], [address], [facility] 07/21/2023 17:38:17 COVID-19, mRNA, LNP-S, PF, 30 mcg/0.3 mL dose 12/23/2020 completed Lan Cooper MD [address] [facility] [address], [place], [address], [facility] 07/21/2023 17:38:17 COVID-19, mRNA, LNP-S, PF, 30 mcg/0.3 mL dose 01/13/2021 completed Lan Cooper MD [address] [facility] [address] [facility] [address], [place], [address], [facility] 07/21/2023 17:38:17 Influenza, MDCK, quadrivalent, PF 07/18/2023 completed Lan Cooper MD [address] [facility] [address] [facility] [address], [place], [address], [facility] 09/16/2023 16:15:00 COVID-19, mRNA, LNP-S, PF, oly-sucrose, 30 mcg/0.3 mL 07/18/2023 completed [facility] 09/16/2023 15:51:58 zoster recombinant 10/02/2023 completed MD Edna [address] [facility] [address], [place], [address], [facility] 12/30/2023 11:05:31 zoster recombinant 11/30/2023 completed MD Edna [address] [facility] [address], [place], [address], [facility] 12/30/2023 11:05:31 Influenza, MDCK, trivalent, PF 04/29/2024 completed MD Edna [address] [facility] [address], [place], [address], [facility] 10/06/2024 17:03:49 Past Encounters Encounter ID Performer Location Encounter Start Date Encounter Closed Date Diagnosis/Indication Diagnosis SNOMED-CT Code Diagnosis ICD10 Code Diagnosis IMO Codes Diagnosis Note [id number] Lan Cooper MD [facility] [address] [facility] [address] [place] [address] 06/21/2025 16:15:37 06/21/2025 17:55:18 Essential hypertension 32180260 I10 bp optimalon losartan and carvedilol , amlod 5 mg daily Snoring 62742951 R06.83 [id number] renetta risk factor present, assocaited fatigue,di scussed sleep testingagr eeaable and will order Chronic neck pain 546325 1727 107 M54.2 M50.30 hx of cervical fusion 1998worsen ed neck painon cyclobenza concha prn ibuprofen prndiscuss ed physical therapyxr reviewed: multilevel ddd.methoc arbamol did not helpseen pain mgmt. Degenerati on of lumbar intervertebral disc 57454691 M51.369 worsened now in low back since [...] facet arthritis Type 2 christy betes mellitus 02102939 E11.65 dm dx 54 years. type 2initially started on metformini nsulin started in 1-2 years after etnpw8y: 7 last.eye check: 2022 , yearlyno peripheral [...] with endocrinol ogist Rosa Maria Lopez at [place], [place]1/10/03: 8.5 on freestyle attempted mounjaro for 2 months. back on ozempic 0.5 mg q weekly.09/11 4: 6.7 uac negative3/ 24: 6.412/24: 7.5 uAC negative2024: 6.8 Long-term current use of insulin 548726871 Z79.4 regularly uses toujeo u300 30 units daily Vitamin D deficiency 347 92553 E55.9 labs reviewed Mixed hyperlipidemia 267 762097 E78.2 rosuvastat in 40 mg dailylipid profile with 221/60/125 /151switch to night time dosing./ 4: 209/65/117 /85288/24: LDL 83 on rosuvastat in Preventive procedure 169 592885 Z29.9 mammogram: 08/01: normal, 07/03: negative.c ovid: 3 shotsflu: bad reaction to this in the past ne umonia shot: recommende dshingles: 10/03; 11/2023tdap : recommende d colonsocpy : one in the pasrt years ago. started at [address]. [address] Stephens seen.she will fu with himcologua rd 10/03: negative Localized, primary osteoarthritis of the shoulder region 236668624 M19.012 right shoulder problem ongoing.se e orthopedic s. Dr. More Trigger fi nger of right hand 7825482317 2290175 M65.30 right hand right trigger fingersees dr. Patterson Liver enzy mes level above reference range 013283959 R74.01 mildy elevated liver eznymesno alcoholNAS H: diabetes relatedhep atitis profile negative.f erritin normalrech jeana and monitor Body mass index 25-29 - overweight 217055371 E66.3 131434 bmi 25.7diet and physical activityon ozempic Psoriasis 4289211 L40.9 31701 started 01/2025expo sure to fluconazol e and metronidaz olealso on estradiol cream for atrophic vaginitiss top estradiolt ry triamcinol one creamrash is similar unchanged, itchy.poss ilbe tinea corporis, will add clotrimazo lesent to dermatolog ist: diagnosed with psoriasisn ow on clobetasol , wants to try cream. Screening for malignant neoplasm of breast 913659248 Z12.31 ordered Health Concerns Section Related Observation LastModified by Organization Detai ls LastModified Time None Recorded Concern Status LastModified by Organization Details LastModified Time None Recorded Payers Encounter Date Sequence Insurance Name Policy Number Policy Vaughn Covered Member ID Vaughn Member ID Guarantor Name 06/21/2025 1 [employer] [id number] Clare Rodriguez [id number] Clare Rodriguez Notes Date Note Type Note Provider Name and Address Organization Details Recorded Time 06/21/2025 text/html ROS as noted in the HPI Pt here for follow up. No falls noted, depression screening negative. Pt sees dermatologists for psoriasis. Pt continues to follow diabetic diet and exercises daily. No chest pain, shortness of breath, nausea or vomiting. Lan Cooper MD [address] [facility] [facility] [address], [place], [address], [facility] 06/22/2025 18:37:45 OBGyn Episode No OBEpisode recorded.
--- NOTE | 2025-06-30 10:25 | ECG_ITS ---
Test Date: 2025-06-30 10:37:38 Measurements Intervals [place] Rate: 92 P: 53 VA: 177 QRS: 19 QRSD: 82 T: 55 QT: 335 QTc: 414 Interpretive Statements SINUS RHYTHM WITHIN NORMAL LIMITS WARNING: DATA QUALITY MAY AFFECT INTERPRETATION No previous ECG available for comparison Electronically Signed On 06-30-2025 11:29:50 GAS CUTTER by David Witt M.D.
[2025-06-30 11:00] LABS: Anion Gap 5 mmol/L (4-12); Blood Urea Nitrogen 6 mg/dL (7-17); Calcium 9.9 mg/dL (8.4-10.2); Carbon Dioxide 30 mmol/L (22-30); Chloride 102 mmol/L (98-107); Estimated Glomerular Filt Rate > 60; Glucose 183 mg/dL (65-110); Potassium 3.8 mmol/L (3.4-5.0); Sodium 137 mmol/L (137-145)
== END 2025-06-30 10:09 | disposition home or self-care (01) ==
LOC: ANHSURGERY 10:12
PROVIDERS: Anesthesiology; PCP Internal Medicine; Visit Provider Orthopaedic Surgery
DX: E11.65 Type 2 diabetes mellitus with hyperglycemia (principal); Z01.818 Encounter for other preprocedural examination
CPT/HCPCS: 36415; 80048; 93005

== ENCOUNTER 2025-07-04 01:29 | Day surgery (SDC) | payer OTHER, SELFPAY ==
[2025-06-27 11:32] VITALS: BMI 26.6
--- NOTE | 2025-06-27 11:43 | PC.NURSE ---
[facility] has started construction of its new state of the art ER which will open Spring 2026. With this, we anticipate parking may be a challenge for some our surgical patients and families. Parking spaces are limited but are available for all Surgical, obstetrics, and ER patients sharing this lot. If you arrive and find you are having a hard time finding a parking space, please note that we understand the challenges, please drive around the hospital and park near Hospital Entrance 1. When you enter this entrance, you can ask a volunteer to direct or take you back to the surgical waiting area to check in. We appreciate everyone?s understanding of these expected challenges while we build for your future. Report to the Outpatient Waiting Room, entrance under the green pavilion located off [address], at time _0800_ on date _[id number]_. Planned Procedure Time: _1000_.? Time changes happen often and if your time is changed the preop area will call you the afternoon before. - You and your visitor will be asked to self-screen and do not enter if you have any COVID symptoms. Please call surgeon if you need to reschedule. - A mask is optional within the hospital at this time. Patients may have clear liquids (water, carbonated beverages, clear teas, apple juice) until 3 hours prior to surgery with a maximum of 20 ounces. - No food from midnight until time of surgery and no smoking, or chewing tobacco (or any form of nicotine). No chewing gum, candy or mints. Take only the following medications with a SIP of water on the morning of surgery: __Amlodipine and Carvidilol____ DO NOT STOP ANY OF YOUR OTHER PRESCRIPTION MEDICATIONS PRIOR TO SURGERY EXCEPT THE FOLLOWING Hold all vitamins and supplements for 3 days per anesthesiologist. Medications to discontinue per physician Please call Dr More and ask if need to hold Aspirin and Aleve. Date to take last dose____ Please no make-up, nail maltese, hairspray, perfume, deodorant, or body powder the day of surgery.? No jewelry (including any body piercings) or valuables the day of surgery, leave them at home.? Please take a shower or bath the night before, or the morning of, surgery with an antibacterial soap.? Wear comfortable, loose fitting clothing.? - Jewelry must be removed prior to entering the operating room.? Rings and piercings that are not removed may be cut off. - The hospital will not accept responsibility for valuables.? - Please leave all valuables, including medications, at home the day of surgery. If you are going home after surgery, a licensed wheelchair van driver must drive you home.? - NO public transportation without another adult if you receive anesthesia. - We recommend that an adult stay with you for 24 hours following discharge. - We also recommend that you do not drive, make important decision, drink alcoholic beverages, or take any drugs that were not prescribed by your health care provider for at least 24 hours after your discharge time. Follow any additional instructions given to you from your surgeon. Telephone instructions given to __Clare__and asked if any additional questions and then verbalized understanding. Patient advised to call surgeon office or pre surgery nurse liaison [phone] if any additional questions.
[2025-07-04] VITALS (8 sets, daily range): BP systolic 108–156; BP diastolic 65–84; PULSE 70–99; RESP 12–18; TEMP 36.3–36.4; O2SAT 98–100
--- OUTSIDE RECORDS SUMMARY | 2025-07-04 01:31 | XMS_ITS | Clinical Summary ---
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
--- OUTSIDE RECORDS SUMMARY | 2025-07-04 01:32 | XMS_ITS | Data Portability ---
Author Organization [place] [facility] Address [address] [place] [address] Assessment No assessment recorded. Plan of Treatment Reminders Order Date Submit Date Provider Last Modified By Organization Details Last Modified Time Details Appointments Follow Up 15 2025 01:30P M Lan Cooper MD Not available Not available Not available Lab lipid panel, serum 2024 025 [facility], [address] [facility], [place], [address], 06/28/2025 04:04:12 glucose , fingers tick, blood [address], [address], [place], [address], 06/21/2025 17:51:43 HbA1c (hemogl obin A1c), blood 2024 025 [facility], [address] [facility], [place], [address], 06/28/2025 04:04:11 microal bumin/c reatini ne, mass ratio, urine 2024 025 [facility], [address] [facility], [place], [address], 06/28/2025 04:04:11 CMP, serum or plasma 2024 [facility], [address] [facility], [place], [address], 06/28/2025 04:04:11 vitamin D, 25-hydr oxy, total, serum 2024 [facility], [address], [place], [address], 06/28/2025 04:04:11 TSH, serum or plasma 2024 [facility], [address], [place], [address], 06/28/2025 04:04:12 CBC w/ auto diff 2024 [facility], [address], [place], [address], 06/28/2025 04:04:12 urinaly sis complet e, reflex culture 2024 [facility], [address], [place], [address], 06/28/2025 04:04:13 TSH, serum, reflex free T4 2024 [facility], [address], [place], [address], 06/28/2025 04:04:13 lipid panel w/ direct LDL, serum 2024 [facility], [address], [place], [address], 06/28/2025 04:04:13 uric acid, serum or plasma 2024 025 [facility], [place], [address], 06/28/2025 04:04:12 CMP, serum or plasma 2024 025 [facility], [address] [facility], [place], [address], 06/28/2025 04:04:12 Referral dermato logist referra l 2024 025 [facility], [address] [place] [address], [address], 04/05/2025 04:03:01 pain managem ent referra l 2024 025 [email or web address], [address], [place], [address], 03/02/2025 15:35:41 pain managem ent referra l 2024 025 [facility], [address], [place], [address], 05/28/2025 05:01:20 Procedures None recorde d. Surgeries None recorde d. Imaging MAMMO, screeni ng, digital , bilater al [address] [facility], [address] [place], [address], 06/21/2025 17:55:18 home sleep study 2024 025 [facility], [address], [place], [address], 06/28/2025 04:04:10 home sleep study 2024 025 [facility], [address], [place], [address], 01/04/2025 04:03:29 Medication Orders clobeta corinna 0.05 % topical cream 2024 025 [facility] [address], [address], [place], [address], 06/21/2025 17:51:53 clotrim azole-b etameth asone 1 %-0.05 % topical cream 2024 025 [facility] [address], [address], [place], [address], 03/08/2025 11:36:44 triamci nolone acetoni de 0.1 % topical cream 2024 025 [email or web address] [facility] [address], [address], [place], [address], 02/24/2025 14:38:00 rosuvas tatin 40 mg tablet 2024 025 [facility] [address], [address], [place], [address], 12/28/2024 16:29:01 Flonase Allergy Relief 50 mcg/act uation nasal spray,s uspensi on 2024 025 [facility] [address], [address] , [place], [address], 12/28/2024 16:29:00 meloxic am 15 mg tablet 2024 025 [facility] [address], [address] , [place], [address], 12/28/2024 16:09:54 Patient TargetsNo targets recorded. Patient Instructions Encounter Date Encounter Id Patient Instructions Last Modified By Organization Details Last Modified Time 12/28/2024 [id number] snoring: care instructions [email or web address] Not available 12/28/2024 16:28:55 learning about healthy weight [email or web address] Not available 12/28/2024 16:28:55 02/22/2025 [id number] rash: care instructions [email or web address] Not available 02/22/2025 12:42:25 snoring: care instructions [email or web address] Not available 02/22/2025 12:42:25 learning about healthy weight [email or web address] Not available 02/22/2025 12:42:25 I spent a total of _26 minutes (excluding separately reportable procedure time ) in care of this patient. [email or web address] Not available 02/22/2025 12:55:36 03/08/2025 [id number] rash: care instructions [email or web address] Not available 03/08/2025 11:34:10 snoring: care instructions [email or web address] Not available 03/08/2025 11:34:10 learning about healthy weight [email or web address] Not available 03/08/2025 11:34:10 I spent a total of __22____ minutes (excluding separately reportable procedure time ) in care of this patient. Not available 03/08/2025 11:33:56 06/21/2025 [id number] mammogram: about this test [email or web address] Not available 06/21/2025 17:51:42 snoring: care instructions [email or web address] Not available 06/21/2025 17:51:43 rash: care instructions [email or web address] Not available 06/21/2025 17:51:42 psoriasis: care instructions [email or web address] Not available 06/21/2025 17:51:42 learning about healthy weight [email or web address] Not available 06/21/2025 17:51:42 I spent a total of __32____ minutes (excluding separately reportable procedure time ) in care of this patient. [email or web address] Not available 06/21/2025 17:46:31 Reason for Referral Pain Management Referral for Degeneration of lumbar intervertebral disc Referring Physician: Lan Cooper, Internal Medicine, Encounter Date: 10/27/2024 Pain Management Referral for Chronic neck pain Referring Physician: Lan Cooper, Internal Medicine, Encounter Date: 10/27/2024 Early Childhood Coordinator Referral for E ruption Referring Physician: Lan Cooper, Internal Medicine, Encounter Date: 03/08/2025 Results Created Date Observation Date Name Description Value Unit Range Abnormal Flag Note LastModifiedBy Organization Detail LastModifiedTime 06/21/20 25 06/21/2025 gluco se, finge rstic k, blood Blood Glucose: mg/dl 143 Not Available [facility] [address], [place], [address], 06/21/2025 17:14:15 10/23/19 25 10/21/2024 XR, hip + pelvi s, bilat eral, 2 view No observ ation record ed. [address], [address], 10/27/2024 16:53:18 10/23/19 25 10/21/2024 XR, lumbo sacra l spine , 2 or 3 view No observ ation record ed. [address], [address], 10/27/2024 16:53:18 10/23/19 25 10/21/2024 XR, cervi kumar spine , 2 or 3 view No observ ation record ed. [address], [address], 10/27/2024 16:53:18 12/29/19 25 12/05/2024 MRI, lumba [...] Mild degene rative change , as above. [email or web address] Not Available 02/07 12:29:37 Result Notes Documentation [...] as above. Lan Cooper MD [address] [facility] [address], [place], [address], [facility] 02/22/2025 12:29:37 Problems Name Problem SNOMED Code Status Onset Date Resolution Date Notes Provider Name and Address Organization Details Recorded Time Chronic neck pain 35922535146 07 Active Chronic neck pain Not Available [facility] 3 10:47:30 Long-ter m current use of insulin 091162834 Active Long-ter m current use of insulin Not Available [facility] 3 10:47:30 Localize d, primary osteoart hritis of the shoulder region 364988451 Active Localize d, primary osteoart hritis of the shoulder region Not Available [facility] 3 10:47:30 [facility] hyperten kylah 74997381 Active [facility] hyperten kylah Not Available [facility] 3 10:47:30 Vitamin D deficien cy 80551187 Active Vitamin D deficien cy Not Available [facility] 3 10:47:30 Type 2 diabetes mellitus without complica tion 588281092 Completed 03/16/2023 Type II diabetes mellitus without complica tion Lan Cooper MD [address] [facility] [address], [place], [address] , [facility] 3 15:54:46 Chronic low back pain 024914135 Active Chronic low back pain Not Available [facility] 3 10:47:30 Type 2 diabetes mellitus 07585532 Active 2022 Not Available [facility] 3 10:47:30 Mixed hyperlip idemia 099344013 Active 2022 Not Available [facility] 3 10:47:30 Trigger finger of right hand 67345801246 963488 Active 2022 Not Available [facility] 3 10:47:30 Liver enzymes level above referenc e range 145340706 Active 2022 Not Available [facility] 3 10:47:30 Herpes zoster 1163660 Completed 202210/06/2024 Lan Cooper MD [address] [facility], [place], [address] , [facility] 5 16:54:46 Degenera tion of lumbar interver tebral disc 24201528 Active 2024 Lan Cooper MD [address], [place], [address] , [facility] 5 17:03:54 Body mass index 25-29 - overweig ht 443828082 Active 2024 Lan Cooper MD [address], [place], [address] , [facility] 5 16:22:50 Tinnitus of right ear 67680646526 08 Active 2024 Lan Cooper MD [address], [place], [address] , [facility] 5 16:24:01 Snoring 70131447 Active 2024 Lan Cooper MD [address], [place], [address] , [facility] 5 16:24:18 Eruption 458711330 Active 2024 Lan Cooper MD [address], [place], [address] , [facility] 5 12:33:40 Uncontro lled type 2 diabetes mellitus 703521031 Active 2024 [facility] 5 10:53:51 Psoriasi s 6551415 Active 2024 [facility] 5 12:19:35 Problem Notes None recorded. Medical [...] 5 170.18 cm 98.2 [degF] 26 kg/m2 10037.3 3 g 104 /min 18 /min 100 % 122/60 mm[Hg] [facility] 5 16:27:51 Date Recorded Body height Body temperature Body mass index (BMI) Body weight Heart rate Respiratory rate Oxygen saturation Systolic And Diastolic Provider Name and Address Organization Details Last Updated DateTime 5 170.18 cm 98.3 [degF] 25.7 kg/m2 69510.1 5 g 97 /min 18 /min 98 % 128/74 mm[Hg] [facility] 5 15:43:53 Date Recorded Body height Body temperature Body mass index (BMI) Body weight Heart rate Respiratory rate Oxygen saturation Systolic And Diastolic Provider Name and Address Organization Details Last Updated DateTime 5 170.18 cm 98.2 [degF] 26.3 kg/m2 60803.5 2 g 111 /min 18 /min 99 % 122/62 mm[Hg] [facility] 5 12:10:34 Date Recorded Body height Body temperature Body mass index (BMI) Body weight Heart rate Respiratory rate Oxygen saturation Systolic And Diastolic Provider Name and Address Organization Details Last Updated DateTime 5 170.18 cm 97.7 [degF] 26.3 kg/m2 78243.5 2 g 90 /min 17 /min 97 % 118/63 mm[Hg] Ryanne Pascal [facility] 5 11:12:27 Date Recorded Body temperature Body mass index (BMI) Body weight Heart rate Respiratory rate Oxygen saturation Systolic And Diastolic Provider Name and Address Organization Details Last Updated DateTime 5 97.1 [degF] 26.2 kg/m2 64127.9 3 g 85 /min 18 /min 97 % 120/77 mm[Hg] Lan Cooper MD [address], [place], [address], [facility] 5 17:09:10 Date Recorded Body height Provider Name an d Address Organization Details Last Updated DateTime 06/21/2025 170.[address] [facility] 06/21/2025 17:03:31 Social History None [...] N Breast Cancer N Blood Transfusion N COPD N Depression N Lung Disease N Hypothyroidism N Defects or Inherited Disease N Developmental [...] N High Cholesterol Y Liver Disease N Fibromyalgia N Headaches Y Kidney Disease N Allergies/Hayfever N Heart Problems [...] 08/25/2021 completed Lan Cooper MD [address], [place], [address], [facility] 07/21/2023 17:38:17 COVID-19, mRNA, LNP-S, PF, 30 mcg/0.3 mL dose 12/23/2020 completed Lan Cooper MD [address], [place], [address], [facility] 07/21/2023 17:38:17 COVID-19, mRNA, LNP-S, PF, 30 mcg/0.3 mL dose 01/13/2021 completed Lan Cooper MD [address], [place], [address], [facility] 07/21/2023 17:38:17 Influenza, MDCK, quadrivalent, PF 07/18/2023 completed Lan Cooper MD [address], [place], [address], [facility] 09/16/2023 16:15:00 COVID-19, mRNA, LNP-S, PF, oly-sucrose, 30 mcg/0.3 mL 07/18/2023 [facility] 09/16/2023 15:51:58 zoster recombinant 10/02/2023 completed Lan Cooper MD [address], [place], [address], [facility] 12/30/2023 11:05:31 zoster recombinant 11/30/2023 completed Lan Cooper MD [address], [place], [address], [facility] 12/30/2023 11:05:31 Influenza, MDCK, trivalent, PF 04/29/2024 completed Lan Cooper MD [address], [place], [address], [facility] 10/06/2024 17:03:49 Past Encounters Encounter ID Performer Location Encounter Start Date Encounter Closed Date Diagnosis/Indication Diagnosis SNOMED-CT Code Diagnosis ICD10 Code Diagnosis IMO Codes Diagnosis Note [id number] Lan Cooper MD [facility] [address] [place] [address] 03/16/2023 14:32:04 03/16/2023 17:32:24 Type 2 diabetes mellitus 00413098 E11.65 dm dx 54 years. type 2initially started on metformini nsulin started in 1-2 years after qaspa6p: 7 last.eye check: 2022 , yearlyno peripheral neuropathy foot exam: regularlyo n toujeo 30 units, metformin 1000 mg po daily, ozempic 0.25 mg q 2weeksjard iance cuased stomach problem and hence stopped Long-term current use of insulin 832653086 Z79.4 regulary uses toujeo u 300 30 units daily Essential hypertension 12241432 I10 bp not optimal. bp optimal at home.on losartan and carvidelol amlod 5 mg dialy Vitamin D deficiency 347 86053 E55.9 recheck labs Mixed hyperlipidemia 267 261926 E78.2 rosuvastat in 40 mg daily Localized, primary osteoarthritis of the shoulder region 304318505 M19.012 right shoulder problem ongoing.se e orthopedic s. Dr. More Trigger fi nger of right hand 6755261567 1703857 M65.30 right hand right trigger fingersees dr. Patterson [id number] Lan Cooper MD [facility] [address] [place] [address] 06/17/2023 16:13:34 06/17/2023 17:35:24 Type 2 diabetes mellitus 77342322 E11.65 dm dx 54 years. type 2initially started on metformini nsulin started in 1-2 years after seqlz0y: 7 last.eye check: 2022 , yearlyno peripheral [...] with endocrinol ogist Rosa Maria Lopez at [place], [place] Long-term current use of insulin 012080026 Z79.4 regulary uses toujeo u 300 30 units daily Essential hypertension 11591259 I10 bp optimalon losartan and carvidelol amlod 5 mg dialy Vitamin D deficiency 347 39117 E55.9 labs reviewed Mixed hyperlipidemia 267 909632 E78.2 rosuvastat in 40 mg dailylipid profile with 221/60/125 /151switch to night time dosing. Localized, primary osteoarthritis of the shoulder region 069516317 M19.012 right shoulder problem ongoing.se e orthopedic s. Dr. More Trigger fi nger of right hand 0045876259 8345206 M65.30 right hand right trigger fingersees dr. Patterson Preventive procedure 169 724056 Z29.9 covid: 3 shotsflu: bad reaction to this in the pastpneumo kenya shot: recommende dshingles: recommnede dtdap: recommende d Liver enzy mes level above reference range 665500681 R74.01 mldy elevated liver eznymesno alcoholNAS H: diabetes related Screening for malignant neoplasm of breast 906954729 Z12.31 ordered [id number] Lan Cooper MD [facility] [address] [place] [address] 07/21/2023 11:29:05 07/21/2023 17:58:59 Herpes zoster 2151178 B02.9 supsected as we were not able to see the picutre.bu t descriptio n of the rash is suggestive of thisnever had shingles before.iván cordero order valacyclov ir. 7 day course.she will try to get th epicture and send it to me if possiblety lneol or ibuprofen for pain control advised and this is helping she states [id number] Lan Cooper MD [facility] [address] [place] [address] 09/16/2023 15:33:18 09/16/2023 16:29:29 Type 2 diabetes mellitus 49689517 E11.65 dm dx 54 years. type 2initially started on metformini nsulin started in 1-2 years after cieuk1l: 7 last.eye check: 2022 , yearlyno peripheral [...] endocrinol ogist Rosa Maria Lopez at [place], //24: 8.5 on freestyle attempted mounjaro for 2 months. back on ozempic 0.5 mg q weekly. Long-term current use of insulin 671652085 Z79.4 regulary uses toujeo u300 30 units daily Essential hypertension 23651946 I10 bp optimalon losartan and carvidelol amlod 5 mg daily Vitamin D deficiency 347 67892 E55.9 labs reviewed Mixed hyperlipidemia 267 467274 E78.2 rosuvastat in 40 mg dailylipid profile with 221/60/125 /151switch to night time dosing.iván cordero rehcek lipid profile Localized, primary osteoarthritis of the shoulder region 166708546 M19.012 right shoulder problem ongoing.se e orthopedic s. Dr. More Trigger fi nger of right hand 2851351404 2021078 M65.30 right hand right trigger fingersees dr. Bichalho Preventive procedure 169 210476 Z29.9 mammogram: 08/01: normalcovi d: 3 shotsflu: bad reaction to this in the pastpneumo kenya shot: recommende dshingles: recommnede dtdap: recommende dcolonsocp y: one in the pasrt years ago. started at [address]. [address] Stephens seen.she will fu with him Liver enzy mes level above reference range 032595315 R74.01 mldy elevated liver eznymesno alcoholNAS H: diabetes relatedhep atitis profile negative.f erritin normal Screening for malignant neoplasm of colon 503614188 Z12.11 colonscopy in the pastwilref to douglas espino [id number] Lan Cooper MD [facility] [address] [place] [address] 12/30/2023 10:31:21 12/30/2023 11:26:36 Essential hypertension 43557672 I10 bp optimalon losartan and carvidelol amlod 5 mg daily Type 2 christy betes mellitus 91296476 E11.65 dm dx 54 years. type 2initially started on metformini nsulin started in 1-2 years after ggmgt4t: 7 last.eye check: 2022 , yearlyno peripheral [...] endocrinol ogist Rosa Maria Lopez at [place], [place]: 8.5 on freestyle attempted mounjaro for 2 months. back on ozempic 0.5 mg q weekly.2/2 4: 6.7 uac negative3/ 24: 6.4 Long-term current use of insulin 338644444 Z79.4 regularly uses toujeo u300 30 units daily Vitamin D deficiency 347 32120 E55.9 labs reviewed Mixed hyperlipidemia 267 802585 E78.2 rosuvastat in 40 mg dailylipid profile with 221/60/125 /151switch to night time dosing.09/11 4: 209/65/117 /157 Localized, primary osteoarthritis of the shoulder region 807302354 M19.012 right shoulder problem ongoing.se e orthopedic s. Dr. More Trigger fi nger of right hand 2861078486 9666753 M65.30 right hand right trigger fingersees dr. Patterson Preventive procedure 169 579974 Z29.9 mammogram: 08/01: normalcovi d: 3 shotsflu: bad reaction to this in the pastpneumo kenya shot: recommende dshingles: 10/03;tdap: recommende dcolonsocp y: one in the pasrt years ago. started at [address]. [address] Stephens seen.she will fu with himcologua rd 10/03: negative Liver enzy mes level above reference range 592189015 R74.01 mldy elevated liver eznymesno alcoholNAS H: diabetes relatedhep atitis profile negative.f erritin normal [id number] Lan Cooper MD [facility] [address] [place] [address] 04/28/2024 16:00:51 04/28/2024 16:46:03 Essential hypertension 33229629 I10 bp optimalon losartan and carvidelol , amlod 5 mg daily Type 2 christy betes mellitus 53205741 E11.65 dm dx 54 years. type 2initially started on metformini nsulin started in 1-2 years after mcszu4t: 7 last.eye check: 2022 , yearlyno peripheral [...] endocrinol ogist Rosa Maria Lopez at [place], [place]: 8.5 on freestyle attempted mounjaro for 2 months. back on ozempic 0.5 mg q weekly.09/11 4: 6.7 uac negative: 6.4 Long-term current use of insulin 194311494 Z79.4 regularly uses toujeo u300 30 units daily Vitamin D deficiency 347 19342 E55.9 labs reviewed Mixed hyperlipidemia 267 708919 E78.2 rosuvastat in 40 mg dailylipid profile with 221/60/125 /151switch to night time dosing.09/11 4: 209/65/117 /157 Localized, primary osteoarthritis of the shoulder region 320717560 M19.012 right shoulder problem ongoing.se e orthopedic s. Dr. More Trigger fi nger of right hand 2485609623 3984563 M65.30 right hand right trigger fingersees dr. Patterson Preventive procedure 169 614726 Z29.9 mammogram: 08/01: normalcovi d: 3 shotsflu: bad reaction to this in the past ne um[place] shot: recommende dshingles: 10/03; 11/2023tdap : recommende dcolonsocp y: one in the pasrt years ago. started at [address] Stephens [facility] 10/03: negative Liver enzy mes level above reference range 820932373 R74.01 mldy elevated liver eznymesno alcoholNAS H: diabetes relatedhep atitis profile negative.f erritin normal Adult heal th examination 297988326 Z00.00 diet a nd physical activity reviwedvac cines and screening tests reviewedme dication reviewed Screening for malignant neoplasm of breast 339085839 Z12.31 ordered [id number] Lan Cooper MD [facility] [address] [place] [address] 10/06/2024 16:02:12 10/06/2024 17:15:04 Preventive procedure 237268286 Z29.9 mammogram: 08/01: normalcovi d: 3 shotsflu: bad reaction to this in the past ne umonia shot: recommende dshingles: 10/03; 11/2023tdap : recommende dcolonsocp y: one in the pasrt years ago. started at [address] Stephens seen.[facility] 10/03: negative Essential hypertension 85192606 I10 bp not optimal but having some painon losartan and carvedilol , amlod 5 mg daily Type 2 christy betes mellitus 61167111 E11.65 dm dx 54 years. type 2initially started on metformini nsulin started in 1-2 years after paolr1v: 7 last.eye check: 2022 , yearlyno peripheral [...] endocrinol ogist Rosa Maria Lopez at [place], [place]: 8.5 on freestyle attempted mounjaro for 2 months. back on ozempic 0.5 mg q weekly.09/11 4: 6.7 uac negative3/ 24: 6.412/24: 7.5 uAC negative Long-term current use of insulin 940921657 Z79.4 regularly uses toujeo u300 30 units daily Vitamin D deficiency 347 40610 E55.9 labs reviewed Mixed hyperlipidemia 267 097784 E78.2 rosuvastat in 40 mg dailylipid profile with 221/60/125 /151switch to night time dosing.09/11 4: 209/65/117 /72171/24: LDL 83 on rosuvastat in Localized, primary osteoarthritis of the shoulder region 466572960 M19.012 right shoulder problem ongoing.se e orthopedic s. Dr. More Trigger fi nger of right hand 8445331873 8589720 M65.30 right hand right trigger fingersees dr. Patterson Liver enzy mes level above reference range 967457303 R74.01 mildy elevated liver eznymesno alcoholNAS H: diabetes relatedhep atitis profile negative.f erritin normal Screening for malignant neoplasm of breast 041284466 Z12.31 ordered Chronic neck pain 951020 0300 107 M54.2 hx of cervical fusion 1998worsen ed neck painon cyclobenza concha prn ibuprofen prnwill get xray cervical spinediscu ssed physical therapy: will hold off until xrays are done Chronic low back pain 27 1202129 M54.50 worsened now in low back since a year nowkimberly is taking cyclobenza concha prn but makes her dizzy.will add methocarba molon ibuprofen prn [id number] Lan Cooper MD [facility] [address] [place] [address] 10/27/2024 15:48:14 10/27/2024 17:09:23 Chronic neck pain 2528298329 107 M54.2 M50.30 hx of cervical fusion 1998worsen ed neck painon cyclobenza concha prn ibuprofen prnwill get xray cervical spinediscu ssed physical therapy:xr reviewdD: multilevel ddd.methoc arbamol did not help Essential hypertension 76355935 I10 bp not optimal but having some painon losartan and carvedilol , amlod 5 mg daily Type 2 christy betes mellitus 77077023 E11.65 dm dx 54 years. type 2initially started on metformini nsulin started in 1-2 years after oigsx0h: 7 last.eye check: 2022 , yearlyno peripheral [...] endocrinol ogist Rosa Maria Lopez at [place], [place]/2[place]: 8.5 on freestyle attempted mounjaro for 2 months. back on ozempic 0.5 mg q weekly.2 4: 6.7 uac negative3/ 24: 6.412/24: 7.5 uAC negative Long-term current use of insulin 271732270 Z79.4 regularly uses toujeo u300 30 units daily Vitamin D deficiency 347 20930 E55.9 labs reviewed Mixed hyperlipidemia 267 925786 E78.2 rosuvastat in 40 mg dailylipid profile with 221/60/125 /151switch to night time dosing.09/11 4: 209/65/117 /21182/: LDL 83 on rosuvastat in Preventive procedure 169 343097 Z29.9 mammogram: 08/01: normalcovi d: 3 shotsflu: bad reaction to this in the past 3pne umonia shot: recommende dshingles: 10/03; 11/2023tdap : recommende dcolonsocp y: one in the pasrt years ago. started at [address]. [address] Dr Stephens seen.she will fu with [facility]olog[facility] rd 10/03: negative Localized, primary osteoarthritis of the shoulder region 587482093 M19.012 right shoulder problem ongoing.se e orthopedic s. Dr. More Trigger fi nger of right hand 6884200150 3678355 M65.30 right hand right trigger fingersees dr. Patterson Liver enzy mes level above reference range 976277231 R74.01 mildy elevated liver eznymesno alcoholNAS H: diabetes relatedhep atitis profile negative.f erritin normal Degenerati on of lumbar intervertebral disc 05546625 M51.369 worsened now in low back since a year nowkimberly is taking cyclobenza concha prn but makes her dizzy.saqib chase methocarba mol which did not help muchon ibuprofen prnxr ls spine with mild to moderate ddd.xr hip: mild arthritisw ill refer to pain management for further treatment [id number] Lan Cooper MD [facility] [address] [place] [address] 12/28/2024 15:13:00 12/28/2024 16:31:36 Chronic neck pain 9137656148 107 M54.2 M50.30 hx of cervical fusion 1998worsen ed neck painon cyclobenza concha prn ibuprofen prndiscuss ed physical therapyxr reviewdD: multilevel ddd.methoc arbamol did not helpseen pain mgmt. Degenerati on of lumbar intervertebral disc 90231200 M51.369 worsened now in low back since [...] mild disc bulge, facet arthritis Essential hypertension 54606976 I10 bp optimalon losartan and carvedilol , amlod 5 mg daily Type 2 christy betes mellitus 81280646 E11.65 dm dx 54 years. type 2initially started on metformini nsulin started in 1-2 years after amoaa8p: 7 last.eye check: 2022 , yearlyno peripheral [...] endocrinol ogist Rosa Maria Lopez at [place], /10/03: 8.5 on freestyle attempted mounjaro for 2 months. back on ozempic 0.5 mg q weekly.09/11 4: 6.7 uac negative3: 6.412/24: 7.5 uAC negative Long-term current use of insulin 020684090 Z79.4 regularly uses toujeo u300 30 units daily Vitamin D deficiency 347 92419 E55.9 labs reviewed Mixed hyperlipidemia 267 294664 E78.2 rosuvastat in 40 mg dailylipid profile with 221/60/125 /151switch to night time dosing.09/11 4: 209/65/117 /08065/24: LDL 83 on rosuvastat in Preventive procedure 169 629099 Z29.9 mammogram: 08/01: normal, 07/03: negative.c ovid: 3 shotsflu: bad reaction to this in the past ne umonia shot: recommende dshingles: 10/03; 11/2023tdap : recommende d colonsocpy : one in the pasrt years ago. started at [address] Stephens [facility]: negative Localized, primary osteoarthritis of the shoulder region 056334513 M19.012 right shoulder problem ongoing.se e orthopedic s. Dr. More Trigger fi nger of right hand [id number] 0565052 M65.30 right hand right trigger fingersees dr. Patterson Liver enzy mes level above reference range 942964291 R74.01 mildy elevated liver eznymesno alcoholNAS H: diabetes relatedhep atitis profile negative.f erritin normalrech jeana and monitor Body mass index 25-29 - overweight 138440750 E66.3 247068 bmi 25.7diet and physical activityon ozempic Tinnitus of right ear 48 51476657 108 H93.11 235753 no signs of infecitonw ill add flonase nasal spray Snoring 39651908 R06.83 01712 renetta risk factor present, assocaited fatigue,di scussed sleep testingagr eeaable [id number] Lan Cooper MD [facility] [address] [place] [address] 02/22/2025 11:39:23 02/22/2025 12:44:46 Essential hypertension 30674753 I10 bp optimalon losartan and carvedilol , amlod 5 mg daily Snoring 57310387 R06.83 60442 renetta risk factor present, assocaited fatigue,di scussed sleep testingagr eeaable but refused Chronic neck pain 693549 2850 107 M54.2 M50.30 hx of cervical fusion 1998worsen ed neck painon cyclobenza concha prn ibuprofen prndiscuss ed physical therapyxr reviewdD: multilevel ddd.methoc arbamol did not helpseen pain mgmt. Degenerati on of lumbar intervertebral disc 02796999 M51.369 worsened now in low back since [...] facet arthritis Type 2 christy betes mellitus 44392695 E11.65 dm dx 54 years. type 2initially started on metformini nsulin started in 1-2 years after tggnm5x: 7 last.eye check: 2022 , yearlyno peripheral [...] endocrinol ogist Rosa Maria Lopez at [place], /10/03: 8.5 on freestyle attempted mounjaro for 2 months. back on ozempic 0.5 mg q weekly.09/11 4: 6.7 uac negative: 6.: 7.5 uAC negative2024: 6.8 Long-term current use of insulin 640336348 Z79.4 regularly uses toujeo u300 30 units daily Vitamin D deficiency 347 76504 E55.9 labs reviewed Mixed hyperlipidemia 267 573278 E78.2 rosuvastat in 40 mg dailylipid profile with 221/60/125 /151switch to night time dosing.09/11 4: 209/65/117 /69090/: LDL 83 on rosuvastat in Preventive procedure 169 913826 Z29.9 mammogram: 08/01: normal, 07/03: negative.c ovid: 3 shotsflu: bad reaction to this in the past ne umonia shot: recommende dshingles: 10/03; 11/2023tdap : recommende d colonsocpy : one in the pasrt years ago. started at [address] Stehpens seen.[facility] 10/03: negative Localized, primary osteoarthritis of the shoulder region 711014673 M19.012 right shoulder problem ongoing.se e orthopedic s. Dr. More Trigger fi nger of right hand 6663525115 6163180 M65.30 right hand right trigger fingersees dr. Patterson Liver enzy mes level above reference range 288269717 R74.01 mildy elevated liver eznymesno alcoholNAS H: diabetes relatedhep atitis profile negative.f erritin normalrech jeana and monitor Body mass index 25-29 - overweight 331630362 E66.3 110273 bmi 25.7diet and physical activityon ozempic Tinnitus of right ear 48 85177959 108 H93.11 588617 no signs of infecitonw ill add flonase nasal spray Eruption 255758121 R21 75065 started 01/2025expo sure to fluconazol e and metronidaz olealso on estradiol cream for atrophic vaginitiss top estradiolt ry triamcinol one creamfu in 2 weeks [id number] Lan Cooper MD [facility] [address] [place] [address] 03/08/2025 10:46:11 03/08/2025 11:37:34 Eruption 658543475 R21 74659 started 01/2025expo sure to fluconazol e and metronidaz olealso on estradiol cream for atrophic vaginitiss top estradiolt ry triamcinol one creamrash is similar unchanged, itchy.poss ilbe tinea corporis, will add clotrimazo yasmine send to dermatolog y Essential hypertension 49808218 I10 bp optimalon losartan and carvedilol , amlod 5 mg daily Snoring 56730643 R06.83 91135 renetta risk factor present, assocaited fatigue,di scussed sleep testingagr eeaable but refused Chronic neck pain 793257 9298 107 M54.2 M50.30 hx of cervical fusion 1998worsen ed neck painon cyclobenza concha prn ibuprofen prndiscuss ed physical therapyxr reviewdD: multilevel ddd.methoc arbamol did not helpseen pain mgmt. Degenerati on of lumbar intervertebral disc 86162160 M51.369 worsened now in low back since [...] facet arthritis Type 2 christy betes mellitus 74731915 E11.65 dm dx 54 years. type 2initially started on metformini nsulin started in 1-2 years after oyvlz6n: 7 last.eye check: 2022 , yearlyno peripheral [...] with endocrinol ogist Rosa Mariafanny Lopez at [place], [place]/03: 8.5 on freestyle attempted mounjaro for 2 months. back on ozempic 0.5 mg q weekly.09/11 4: 6.7 uac negative3 24: 6.24: 7.5 uAC negative2024: 6.8 Long-term current use of insulin 532947367 Z79.4 regularly uses toujeo u300 30 units daily Vitamin D deficiency 347 00973 E55.9 labs reviewed Mixed hyperlipidemia 267 315639 E78.2 rosuvastat in 40 mg dailylipid profile with 221/60/125 /151switch to night time dosing.09/11 4: 209/65/117 /07675/: LDL 83 on rosuvastat in Preventive procedure 169 511298 Z29.9 mammogram: 08/01: normal, 07/03: negative.c ovid: 3 shotsflu: bad reaction to this in the past ne umonia shot: recommende dshingles: 10/03; 11/2023tdap : recommende d colonsocpy : one in the pasrt years ago. started at [address] Stephens seen.[facility] 10/03: negative Localized, primary osteoarthritis of the shoulder region 466958775 M19.012 right shoulder problem ongoing.se e orthopedic s. Dr. More Trigger fi nger of right hand 4415149558 2723100 M65.30 right hand right trigger fingersees dr. Patterson Liver enzy mes level above reference range 397997356 R74.01 mildy elevated liver eznymesno alcoholNAS H: diabetes relatedhep atitis profile negative.f erritin normalrech jeana and monitor Body mass index 25-29 - overweight 684555365 E66.3 925994 bmi 25.7diet and physical activityon ozempic Tinnitus of right ear 48 75554714 108 H93.11 653532 no signs of infecitonw ill add flonase nasal spray [id number] Lan Cooper MD [facility] [address] [place] [address] 06/21/2025 16:15:37 06/21/2025 17:55:18 Essential hypertension 65830415 I10 bp optimalon losartan and carvedilol , amlod 5 mg daily Snoring 39766321 R06.83 46130 renetta risk factor present, assocaited fatigue,di scussed sleep testingagr eeaable and will order Chronic neck pain 207240 6262 107 M54.2 M50.30 hx of cervical fusion 1998worsen ed neck painon cyclobenza concha prn ibuprofen prndiscuss ed physical therapyxr reviewed: multilevel ddd.methoc arbamol did not helpseen pain mgmt. Degenerati on of lumbar intervertebral disc 71593894 M51.369 worsened now in low back since [...] facet arthritis Type 2 christy betes mellitus 09724255 E11.65 dm dx 54 years. type 2initially started on metformini nsulin started in 1-2 years after jpjmx7p: 7 last.eye check: 2022 , yearlyno peripheral [...] endocrinol ogist Rosa Maria Lopez at [place], [place]/03: 8.5 on freestyle attempted mounjaro for 2 months. back on ozempic 0.5 mg q weekly.09/11 4: 6.7 uac negative3: 6.41224: 7.5 uAC negative2024: 6.8 Long-term current use of insulin 838297978 Z79.4 regularly uses toujeo u300 30 units daily Vitamin D deficiency 347 35811 E55.9 labs reviewed Mixed hyperlipidemia 267 321377 E78.2 rosuvastat in 40 mg dailylipid profile with 221/60/125 /151switch to night time dosing.09/11 4: 209/65/117 /81701/: LDL 83 on rosuvastat in Preventive procedure 169 448880 Z29.9 mammogram: 08/01: normal, 07/03: negative.c ovid: 3 shotsflu: bad reaction to this in the past ne umonia shot: recommende dshingles: 10/03; 11/2023tdap : recommende d colonsocpy : one in the pasrt years ago. started at [address] Stephens seen.[facility] 10/03: negative Localized, primary osteoarthritis of the shoulder region 077762183 M19.012 right shoulder problem ongoing.se e orthopedic s. Dr. More Trigger fi nger of right hand [id number] 9747644 M65.30 right hand right trigger fingersees dr. Patterson Liver enzy mes level above reference range 274998194 R74.01 mildy elevated liver eznymesno alcoholNAS H: diabetes relatedhep atitis profile negative.f erritin normalrech jeana and monitor Body mass index 25-29 - overweight 299241115 E66.3 767952 bmi 25.7diet and physical activityon ozempic Psoriasis 3925512 L40.9 42057 started 01/2025expo sure to fluconazol e and metronidaz olealso on estradiol cream for atrophic vaginitiss top estradiolt ry triamcinol one creamrash is similar unchanged, itchy.poss ilbe tinea corporis, will add clotrimazo lesent to dermatolog ist: diagnosed with psoriasisn ow on clobetasol , wants to try cream. Screening for malignant neoplasm of breast 145724402 Z12.31 ordered Health Concerns Section Related Observation LastModified by Organization Detai ls LastModified Time None Recorded Concern Status LastModified by Organization Details LastModified Time None Recorded Advance Directives Directive None Recorded Payers Insurance Date Sequence Insurance Name Policy Number Policy Vaughn Covered Member ID Vaughn Member ID Guarantor Name 10/06/2024 1 [facility] ([facility] [id number] Ayo J Michael [id number] Clare Savanna Rodriguez 04/28/2024 1 [facility] ([facility]) [id number] Clare Rodriguez [id number] Clare J Michael 06/27/2025 1 [facility] [employer] [id number] Clare Rodriguez [id number] Clare Rodriguez Notes Date Note Type Note Provider Name and Address Organization Details Recorded Time 10/27/2024 text/html ROS as noted in the HPI Pt here for xray follow up. C/O neck, back and hip pain 02/16. Pt states she received no improvement with one dose of methocarbamol so she dc'd the medication. No chest pain, shortness of breath, nausea or vomiting. MD Kadi tSanley[address] [facility] [address], [place], [address], [facility] 10/27/2024 17:06:32 12/28/2024 text/html ROS as noted in the HPI Pt here for follow up. Diabetic eye exam done at [facility]-negative f/u 1 year. Pt c/o pain in neck and pack- 02/16. She is unable to sleep at night, ringing in right ear x 2 weeks. Denies nausea or vomiting. Cont. to take ozempic weekly. BS on dexcom is 115. No chest pain or shortness of breath. MD Kadi Stanley[address] [facility] [address], [place], [address], [facility] 12/28/2024 16:29:22 02/22/2025 text/html ROS as noted [...] scaling rash Lan Cooper MD [address] [facility] [address], [place], [address], [facility] 02/22/2025 12:55:54 03/08/2025 text/html ROS as noted in the HPI Patient is here for a 2 week f/u of rash. Applying prescribed cream 3 X daily for 2 weeks and has not noticed any change, appears to be spreading some. Blood sugar this morning was 117. No SOB, chest pain, dizziness, fever, nausea or diarrhea. Lan Cooper MD [address] [facility] [address], [place], [address], [facility] 03/08/2025 13:00:07 06/21/2025 text/html ROS as noted in the [facility] Pt here for follow up. No falls noted, depression screening negative. Pt sees dermatologists for psoriasis. Pt continues to follow diabetic diet and exercises daily. No chest pain, shortness of breath, nausea or vomiting. Lan Cooper MD [address] [facility] [address], [place], [address], [facility] 06/22/2025 18:37:45 OBGyn Episode No OBEpisode recorded.
--- OUTSIDE RECORDS SUMMARY | 2025-07-04 01:32 | XMS_ITS | Clinical Summary ---
Author Organization [facility] Address [address] [place] [address] Care Team Providers Care Territory Sales Consultant Name Role Phone Unavailable Primary Care Provider Unavailabl e Source Comments [facility],non-owned Affiliates and Associated Physician Practices is amultiple site organization consisting of ambulatory clinics and hospital sitesin [place], [place], [place] and [place]. This disclosure is being madepursuant to the Care Everywhere program and may not contain all information available regarding this patient. Last updated 18.[facility] Medications * Be aware that medications may not be up to date on this document. Alwaysverify current medications with the patient. 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
--- OUTSIDE RECORDS SUMMARY | 2025-07-04 01:32 | XMS_ITS | Clinical Summary ---
Author Organization [facility] Address [facility] [place] [address] Care Team Providers Care Tape Maker Name Role Phone Lan Betancourt MD Primary Care Provider [phone] Social History Tobacco Use Types Packs/Day Years [...] JOSE MANUEL DIGI Routine 07/29/2023 3:15 PM GARBAGE COLLECTOR Encounter for screening mammogram for malignant neoplasm of breast from Last 3 Months or Most Recently Relevant to Health Maintenance Results * MG SCREENING W STEPHY JOSE MANUEL DIGI (07/29/2023 3:15 PM GARBAGE COLLECTOR) Anatomical Region Laterality Modality Breast Bilateral Mammography 07/30/2023 10:4 3 AM GARBAGE COLLECTOR Narrative 07/30/2023 10:43 AM GARBAGE COLLECTOR EXAMINATION: Digital bilateral screening mammogram with 3-D [...] Santosh Adkins MD, 07/30/2023 10:43 AM Lan Betnacourt MD MAMMO Final Resul t from Last 3 Months or Most Recently Relevant to Health Maintenance Insurance [employer] Care Teams Tape Maker Relationship Specialty Start Date End Date Lan Betancourt MD [address] [facility] [address] [place] [address] PCP - General INTERNAL MEDICINE 10/21/24
--- OUTSIDE RECORDS SUMMARY | 2025-07-04 01:32 | XMS_ITS | Clinical Summary ---
Author Organization [facility] [place] [address] Address [address] [place] [address] Care Team Providers Care Equipment Lead Name Role Phone Lan Cooper MD Primary Care Provider [phone]- [phone] Allergies No known active allergies Medications naproxen [...] 03/29/2012 Surgical History Surgery Date Site/Laterality Comments NE CHOLECYSTECTOMY Cholecystectomy - (Added by Conv) Medical [...] on file Legal Sex Female 6:21 AM MAMMOGRAPHER Gender Identity Not on file Sexual Orientation Not on file Obstetrics History Para Term AB IAB SAB Ectopic Multiple Livin g Live Births 6 5 5 Date Outcome GA Total Labor Labor/2nd/3rd Weight Sex Type Anes PTL No A1 A5 Name Clin Term Term Term Term Term Last Filed Vital Signs Vital Sign Reading Time Taken Comments Blood Pressure 152/82 07/04/2024 10:22 AM MAMMOGRAPHER Pulse 115 07/04/2024 10:22 AM MAMMOGRAPHER Temperature 37 C (98.6 F) 07/04/2024 10:22 AM MAMMOGRAPHER Respiratory Rate 17 07/04/2024 10:22 AM MAMMOGRAPHER Oxygen Saturation 100% 07/04/2024 10:22 AM MAMMOGRAPHER Inhaled Oxygen Concentration - - Weight 79.4 kg (175 lb) 02/21/2016 10:28 AM CDT Height 167.6 cm (5' 6) 07/04/2024 10:22 AM MAMMOGRAPHER Body Mass Index 27.41 02/21/2016 10:28 AM [...] Read Routine (OP Routine) 07/04/2024 10:03 AM MAMMOGRAPHER Screening mammogram, encounter for from Last 3 Months or Most Recently Relevant to Health Maintenance Results * Screening Mammogram Bilateral W Michael (07/04/2024 10:03 AM MAMMOGRAPHER) Anatomical Region Laterality Modality Breast Bilateral Mammography Impressions 07/04/2024 6:21 PM MAMMOGRAPHER BI-RADS ATLAS category (overall): 2 - Benign There is no mammographic evidence of malignancy. A 1 year screening mammogram is recommended. The patient has been or will be contacted. We recommend annual screening mammography for women at average risk of breast cancer beginning at age 40, based on guidelines of the [employer] (ACR Practice Parameter for the Performance of Screening and Diagnostic Mammography) and [employer]. For women with and elevated risk of breast cancer, please refer to the ACR Practice Parameter for specific screening recommendations. The patient will be entered into a reminder system with a target due date of 1 year for her next screening exam. Narrative 07/04/2024 6:21 PM MAMMOGRAPHER Screening Mammogram Bilateral W Michael: 07/04/24 The [...] Most Recently Relevant to Health Maintenance Insurance [facility]PPO Address: [address] [address] Care Teams Equipment Lead Relationship Specialty Start Date End Date Lan Cooper MD [address] [facility] [address] [place] [address] PCP - General Internal Medicine 06/22/24
--- OUTSIDE RECORDS SUMMARY | 2025-07-04 01:32 | XMS_ITS | Data Portability ---
Author Organization [facility], [place] Address [address] [place] [address] Assessment Encounter Date Assessment Date Assessment LastModified by Organization Details LastModified Time 02/19/2022 02/19/2022 Annual gynecological exam performed. Patient will come back in a year unless there are new symptoms. [email or web address] Not available 02/19/2022 12:19:19 01/04/2025 01/04/2025 Annual gynecological exam performed. Patient will come back in a year unless there are new symptoms. [email or web address] Not available 01/04/2025 14:54:58 Plan of Treatment Reminders Order Date Submit Date Provider Last Modified By Organization Details Last Modified Time Details Appointments None recorded. Lab unlisted lab - women's health swab, ELVA 2024 025 [facility] (Lab), [address] [place], [address], 11:33:25 Referral None recorded. Procedures None recorded. Surgeries None recorded. Imaging None recorded. Medication Orders estradiol 0.01% (0.1 mg/gram) vaginal cream 2024 025 [facility] 2425, [address] [facility], [place], [address], 11:30:37 estradiol 0.01% (0.1 mg/gram) vaginal cream 2024 025 [email or web address] [facility] 2425, [address] [facility], [place], [address], 5 12:05:25 metronidazo le 500 mg tablet 2024 025 [facility] [address]25, [address], [place], [address], 5 12:04:08 fluconazole 150 mg tablet 2024 025 [facility] [address]25, [address], [place], [address], 5 12:04:12 fluconazole 150 mg tablet [address], [address], [place], [address], 5 12:01:07 nystatin-tr iamcinolone 100,000 unit/gram-0 .1 % topical ointment [address], [address], [place], [address], 15:12:21 Patient TargetsNo targets recorded. Patient InstructionsNo instructions recorded. Reason for Referral None Reported. Results Created Date Observation Date Name Description Value Unit Range Abnormal Flag Note LastModifiedBy Organization Detail LastModifiedTime 02/20/20 22 02/19/2022 VAGIN ITIS/ VAGIN OSIS, DNA PROBE warren sp. detection, direct probe Negati ve negati ve Not Available [facility] [address] [place], [address], 02/24/2022 10:27:55 02/20/20 22 02/19/2022 VAGIN ITIS/ VAGIN OSIS, DNA PROBE gardnerella vag. detection, direct probe Positi ve negati ve abnormal Not Available [facility] [address] [place], [address], 02/24/2022 10:27:55 02/20/20 22 02/19/2022 VAGIN ITIS/ VAGIN OSIS, DNA PROBE trichomonas vag. detection, direct probe Negati ve negati ve Not Available [facility] [address] [place], [address], 02/24/2022 10:27:55 02/20/20 22 02/19/2022 IMAGE GUIDE [...] Thinp rep Imagi ng Syste m. CLINI KMUAR INFOR MATIO N: Menst rual Statu s: [...] as clini devendra beyer nted. Not Available [facility] [address] [place], [address], 02/24/2022 10:27:56 08/13/19 23 08/13/2022 CT/GC AND TRICH OMONA S VAGIN FOREST (RRNA ), SWAB chlamydia trachomatis, PCR Negati ve negati ve Not Available [facility] (Lab) [address] [place], [address], 08/14/2022 22:02:36 08/13/19 23 08/13/2022 CT/GC AND TRICH OMONA S VAGIN FOREST (RRNA ), SWAB neisseria gonorrhoeae, PCR Negati ve negati ve Not Available [facility] (Lab) [address] [facility], [place], [address], 08/14/2022 22:02:36 08/13/19 23 08/13/2022 CT/GC AND TRICH OMONA S VAGIN FOREST (RRNA ), SWAB trichomonas vaginalis ribosomal RNA (rrna) Negati ve negati ve Not Available [facility] (Lab) [address] [place], [address], 08/14/2022 22:02:36 08/13/19 23 08/13/2022 VAGIN ITIS/ VAGIN OSIS, DNA PROBE warren sp. detection, direct probe Negati ve negati ve Not Available [facility] (Lab) [address] [place], [address], 08/14/2022 22:02:36 08/13/19 23 08/13/2022 VAGIN ITIS/ VAGIN OSIS, DNA PROBE gardnerella vag. detection, direct probe Negati ve negati ve Not Available [facility] (Lab) [address] [place], [address], 08/14/2022 22:02:36 08/13/19 23 08/13/2022 VAGIN ITIS/ VAGIN OSIS, DNA PROBE trichomonas vag. detection, direct probe Negati ve negati ve Not Available [facility] (Lab) [address] [place], [address], 08/14/2022 22:02:36 01/05/20 25 01/04/2025 WOMEN 'S [...] or negat lottie statu s. Not Available [facility] (Lab) [address] [place], [address], 01/05/2025 11:33:25 01/05/20 25 01/04/2025 WOMEN 'S HEALT H SWAB, ELVA warren species, tma Negati ve negati ve Not Available [facility] (Lab) [address] [place], [address], 01/05/2025 11:33:25 01/05/20 25 01/04/2025 WOMEN 'S HEALT H SWAB, ELVA warren glabrata, tma Negati ve negati ve Not Available [facility] (Lab) [address] [place], [address], 01/05/2025 11:33:25 01/05/20 25 01/04/2025 WOMEN 'S [...] Ampli ficat ion (TMA) . Not Available [facility] (Lab) [address] [place], [address], 01/05/2025 11:33:25 Result Notes None recorded. Problems No Known Problems Procedures Surgical History Date Name Laterality Status Provider Name and Address Organization Details Recorded Time 7 section completed [facility] 01/04/2025 17:13:24 2 section completed [facility] 01/04/2025 17:13:17 1 section completed [facility] 01/04/2025 17:13:09 Imaging Results None recorded. Procedure Notes None recorded. Medical Equipment None Reported. Allergies Allergen ID Allergen Name Allergen Category Reaction Reaction Severity Criticality Documentation Date Start Date Code Code System Note Provider Name and Address Organization Details Recorded Time 42196 metronida zole medicatio n Not available Not available Not available 02/01/2025 6922 RxNorm Ana Shirley carlos [facility] 12:02:48 Medications Name Sig Start Date [...] Updated DateTime 08/13/2022 168.91 cm 27.1 kg/m2 38164.42 g 124/76 mm[Hg] [facility] 08/13/2022 16:28:43 Date Recorded Body height Systolic And Diastolic Provider Name and Address Organization Details Last Updated DateTime 08/26/2022 168.91 cm 118/80 mm[Hg] [facility] 08/26/2022 16:46:55 Date Recorded Body height Body mass index (BMI) Body weight Systolic And Diastolic Provider Name and Address Organization Details Last Updated DateTime 01/04/2025 168.91 cm 26.4 kg/m2 71032.33 g 135/81 mm[Hg] [facility] 01/04/2025 15:10:14 Date Recorded Body height Body mass index (BMI) Body weight Systolic And Diastolic Provider Name and Address Organization Details Last Updated DateTime 02/01/2025 168.91 cm 26.6 kg/m2 51950.93 g 143/83 mm[Hg] [facility] 02/01/2025 12:00:43 Date Recorded Body height Body mass index (BMI) Body weight Systolic And Diastolic Provider Name and Address Organization Details Last Updated DateTime 02/19/2022 168.91 cm 27.1 kg/m2 03376.42 g 150/83 mm[Hg] Ann Wesley [facility] 02/19/2022 12:20:59 Social History Question Answer Notes LastModified by Organizat ion Details LastModified Time Tobacco Smoking Status Never Smoker Ann Maryjane [facility] 02/19/2022 12:24:44 Are You Blind Or Do You Have Difficulty Seeing? No Information n ot available 02/19/2022 In The 14 Days Before Symptom Onset, Have You Had Close Contact With A Laboratory-confirm ed COVID-19 While That Case Was Ill? No [email or web address] Information n ot available 01/04/2025 In The 14 Days Before Symptom Onset, Have You Had Close Contact With A Person Who Is Under Investigation For COVID-19 While That Person Was Ill? No [email or web address] Information not available 01/04/2025 Have You Been To An Area Known To Be High Risk For COVID-19? No [email or web address] Information not available 01/04/2025 Are You Deaf [...] (Food, seasonal, environmental ) N Other N Drug/Latex Allergies/Reactions N Blood Transfusion N Breast Cancer N Dermatologic Disorders N Lung Disease N Defects or Inherited Disease N Breast Problem N Gestational Diabetes N Hematologic disorders N Anesthesia Complications N History of STI N Deep Vein Thrombosis N Polycystic ovary syndrome N Anxiety Disorder N Autoimmune disease N Arthritis N Polyps N Infertility N Acid Reflux (GERD) N History of abnormal pap N Cancer N Varicosities N Stroke N Neurologic/Epilepsy N Endometriosis N High Cholesterol Y Fibromyalgia N Headaches N Kidney Disease N Heart Problems N Thyroid Problems N Kidney or Bladder Problems N GI Problems N Eating Disorder [...] ICD10 Code Diagnosis IMO Codes Diagnosis Note [id number] KIMBERLY Carrizales [place] [address] [address] 02/19/2022 11:50:43 02/19/2022 14:28:27 Gynecologic examination 74552038 Z01.419 Take Calcium with Vitamin D 12-1500mg daily. Do monthly self breast exams. It is advised to get annual flu shot in the fall and she could obtain at [facility] or [facility] clinic. If you haven't received the Tdap [...] year or sooner if needed Vaginal odor 693196944 N 89.8 [id number] KIMBERLY Carrizales [place] [address] [address] 08/13/2022 16:10:46 08/13/2022 18:21:05 Vaginitis 54459564 N76.0 Vulvar irritation noted on exam, d/c [...] plan of care. Venereal d isease screening 811207465 Z11.3 [id number] KIMBERLY Carrizales [place] [address] [address] 08/26/2022 16:33:43 08/26/2022 17:07:16 Vulval irritation 875269405 N90.89 Feeling SO much better!Sym ptoms have resolvedCo ntinue with crisco twice daily to vulva - use this as lubricatio n with ICRTC for WWE or sooner if needed Time spent in visit is a total of 15 mins with at least 50% of visit consisting of counseling and review of plan of care. [id number] KIMBERLY Carrizales [place] [address] [address] 01/04/2025 14:32:09 01/04/2025 16:37:07 Acute vaginitis 42121568 N76.0 94212 vaginitis panel sentvulvar care guidelines reviewedrx sent for BV/yeast, r/b/a reviewed Vaginal dryness 98097330 N89.8 [id number] management options reviewedve g based moisturize r routine discussedr x vaginal estradiol cream, r/b/a reviewedRT C for WWE Time spent in visit is a total of 25 mins with at least 50% of visit consisting of counseling and review of plan of care. [id number] KIMBRELY Carrizales [place] [address] [address] 02/01/2025 11:30:59 02/02/2025 11:55:48 Vaginal dryness 74964770 N89.8 [id number] vaginitis symptoms resolved with BV/yeast treatmentd iscussed [...] Vaughn Member ID Guarantor Name 01/29/2025 1 [facility] [employer] [id number] Ayo Rodriguez [id number] Clare Rodriguez 12/26/2024 1 [facility] [id number] Clare Rodriguez [id number] Clare Rodriguez 08/12/2022 1 [facility] Ayo Rodriguez [id number] Clare Rodriguez Notes Date Note Type Note Provider Name and Address Organization Details Recorded Time 2 text/html Annual Wet Silk Hanger Post-MenopausalReported by PatientGenitourinary symptomsFor menopausal symptoms, patient [...] tobacco use. KIMBERLY Carrizales [address], [place], [address], [facility] 02/19/2022 13:38:14 3 text/html Vaginal/Vulvar ProblemReported by Patient 62yo presents for vulvar irritation and itchingSlight vaginal odor that smells like chicken greaseSymptoms have been present on and off x 2 yearsVulvar feels very irritated/inflamedClumpy dischargeMedical hx : HTN, diabetes, elevated cholesterolSymptoms started around same time as she started jardianceSA with male partner KIMBERLY Carrizales [address], [place], [address], [facility] 08/13/2022 17:43:38 3 text/html 62yo Presents for vulvar checkFeeling SO much better since treated for yeast at LOVSymptoms have resolvedUsing crisco twice daily to vulva KIMBERLY Carrizales [address], [place], [address], [facility] 08/26/2022 17:03:53 5 text/html Vaginal/Vulvar ProblemReported by Patient 64yopresents for evaluation of vaginal itching/irritation, discharge, odorsymptoms present 3+ monthsitching, irritation, dryness, pain with ICstrong odor neg pelvic painneg PMBneg n/v/f Ana Shirley null, [facility] 01/04/2025 16:44:18 5 text/html 64yopresents for med check (estradiol cream)completed medication course for BV/yeast and odor/itching resolvedhas not started using estrogen cream yet Sue Friend, WHNP [address], [place], [address], [facility] 02/02/2025 11:34:13 OBGyn Episode Ob Episode Information Episode Created Date Number of Fetuses Patient Bloodtype Patient rh Status Prepregnancy Weight lbs Domestic Partner Domestic Partner Phone Father Name Cigarette Making Machine Catcher Status 01/05/20 1 CLOSED Fetus Data First Name Last Name Admitted to NICU Weight (g) Sex Living Outcome Pediatric Complications Fetus ID Race Codes Race Delivery Type Full Term 80244 Repeat Miguelangel Calculation Initial Miguelangel Date Initial [...] Domestic Partner Domestic Partner Phone Father Name Cigarette Making Machine Catcher Status 01/05/20 1 CLOSED Fetus Data First Name Last Name Admitted to NICU Weight (g) Sex Living Outcome Pediatric Complications Fetus ID Race Codes Race Delivery Type Full Term 00236 Repeat Miguelangel Calculation Initial Miguelangel Date Initial [...] Domestic Partner Domestic Partner Phone Father Name Cigarette Making Machine Catcher Status 01/05/20 25 1 CLOSED Fetus Data First Name Last Name Admitted to NICU Weight (g) Sex Living Outcome Pediatric Complications Fetus ID Race Codes Race Delivery Type Full Term 95943 Primary Miguelangel Calculation Initial Miguelangel Date Initial [...] Domestic Partner Domestic Partner Phone Father Name Cigarette Making Machine Catcher Status 01/05/20 25 1 CLOSED Fetus Data First Name Last Name Admitted to NICU Weight (g) Sex Living Outcome Pediatric Complications Fetus ID Race Codes Race Delivery Type Full Term 10022 Vaginal Delivery Miguelangel Calculation Initial Miguelangel Date [...] Domestic Partner Domestic Partner Phone Father Name Cigarette Making Machine Catcher Status 01/05/20 25 1 CLOSED Fetus Data First Name Last Name Admitted to NICU Weight (g) Sex Living Outcome Pediatric Complications Fetus ID Race Codes Race Delivery Type Full Term 88208 Vaginal Delivery Miguelangel Calculation Initial Miguelangel Date [...]
--- OUTSIDE RECORDS SUMMARY | 2025-07-04 01:32 | XMS_ITS | Continuity of Care Document ---
Author Organization [place] - [facility], [facility] Address [address] [place] [address] Assessment No assessment recorded. Plan of Treatment Reminders Order Date Submit Date Provider Last Modified By Organization Details Last Modified Time Details Appointments Follow Up 15 2025 01:30P M Lan Cooper MD Not available Not available Not available Lab lipid panel, serum 2024 025 [facility], [address] [facility], [place], [address], 06/28/2025 04:04:12 glucose, fingersti ck, blood [address], [address], [place], [address], 06/21/2025 17:51:43 HbA1c (hemoglob in A1c), blood 2024 025 [facility], [address] [facility], [place], [address], 06/28/2025 04:04:11 microalbu min/creat inine, mass ratio, urine 2024 025 [facility], [address] [facility], [place], [address], 06/28/2025 04:04:11 CMP, serum or plasma 2024 [facility], [address], [place], [address], 06/28/2025 04:04:11 vitamin D, 25-hydrox y, total, serum 2024 [facility], [address], [place], [address], 06/28/2025 04:04:11 TSH, serum or plasma 2024 [facility], [address], [place], [address], 06/28/2025 04:04:12 CBC w/ auto diff 2024 [facility], [address], [place], [address], 06/28/2025 04:04:12 urinalysi s complete, reflex culture 2024 [facility], [address], [place], [address], 06/28/2025 04:04:13 TSH, serum, reflex free T4 2024 [facility], [address], [place], [address], 06/28/2025 04:04:13 lipid panel w/ direct LDL, serum 2024 [facility], [address], [place], [address], 06/28/2025 04:04:13 uric acid, serum or plasma 2024 [facility], [place], [address], 06/28/2025 04:04:12 CMP, serum or plasma 2024 [facility], [address] [facility], [place], [address], 06/28/2025 04:04:12 Referral None recorded. Procedures None recorded. Surgeries None recorded. Imaging MAMMO, screening , digital, bilateral [address] [facility] [place], [facility] [place], [address], 06/21/2025 17:55:18 home sleep study 2024 [facility], [address], [address], [place], [address], 06/28/2025 04:04:10 Medication Orders clobetaso l 0.05 % topical cream 2024 [facility] [address], [address] , [place], [address], 06/21/2025 17:51:53 Patient TargetsNo targets recorded. Patient Instructions Encounter Date Encounter Id Patient Instructions Last Modified By Organization Details Last Modified Time 06/21/2025 [id number] mammogram: about this test [email or web address] Not available 06/21/2025 17:51:42 snoring: care instructions [email or web address] Not available 06/21/2025 17:51:43 rash: care instructions [email or web address] Not available 06/21/2025 17:51:42 psoriasis: care instructions [email or web address] Not available 06/21/2025 17:51:42 learning about healthy weight [email or web address] Not available 06/21/2025 17:51:42 I spent a total of __32____ minutes (excluding separately reportable procedure time ) in care of this patient. [email or web address] Not available 06/21/2025 17:46:31 Reason for Referral None Reported. Results Created Date Observation Date Name Description Value Unit Range Abnormal Flag Note LastModifiedBy Organization Detail LastModifiedTime 06/21/20 25 06/21/2025 gluco se, liana rsmariana k, blood Blood Glucose: mg/dl 143 Not Available [facility] [address] [facility] [address], [place], [address], 06/21/2025 17:14:15 Result Notes None recorded. Problems Name Problem SNOMED Code Status Onset Date Resolution Date Notes Provider Name and Address Organization Details Recorded Time Chronic neck pain 89977230071 07 Active Chronic neck pain Not Available [facility] 3 10:47:30 Long-ter m current use of insulin 880142460 Active Long-ter m current use of insulin Not Available [facility] 3 10:47:30 Localize d, primary osteoart hritis of the shoulder region 960504624 Active Localize d, primary osteoart hritis of the shoulder region Not Available [facility] 3 10:47:30 [facility] hyperten kylah 45399128 Active [facility] hyperten kylah Not Available [facility] 3 10:47:30 Vitamin D deficien cy 95407592 Active Vitamin D deficien cy Not Available [facility] 3 10:47:30 Type 2 diabetes mellitus without complica tion 972090095 Completed 03/16/2023 Type II diabetes mellitus without complica tion Lan Cooper MD [address] [facility] [address], [place], [address] , [facility] - [facility] 3 15:54:46 Chronic low back pain 898386296 Active Chronic low back pain Not Available [facility] 3 10:47:30 Type 2 diabetes mellitus 77847836 Active 2022 Not Available [facility] 3 10:47:30 Mixed hyperlip idemia 089032862 Active 2022 Not Available [facility] 3 10:47:30 Trigger finger of right hand 31580644750 214649 Active 2022 Not Available [facility] 3 10:47:30 Liver enzymes level above referenc e range 982139538 Active 2022 Not Available [facility] 3 10:47:30 Herpes zoster 3580853 Completed 202210/06/2024 Lan Cooper MD [address] [facility] [address], [place], [address] , [facility] 5 16:54:46 Degenera tion of lumbar interver tebral disc 63273762 Active 2024 MD Kadi Stanley[address] [facility] [address], [place], [address] , [facility] 5 17:03:54 Body mass index 25-29 - overweig ht 559331366 Active 2024 Lan Cooper MD [address] [facility] [address], [place], [address] , [facility] 5 16:22:50 Tinnitus of right ear 92948270394 08 Active 2024 Lan Cooper MD [address] [facility] [address], [place], [address] , [facility] 5 16:24:01 Snoring 44897636 Active 2024 Lan Cooper MD [address] [facility] [address], [place], [address] , [facility] 5 16:24:18 Eruption 301065482 Active 2024 MD Kadi [address] [facility] [address], [place], [address] , [facility] 5 12:33:40 Uncontro lled type 2 diabetes mellitus 842873248 Active 2024 [place] [facility] 10:53:51 Psoriasi s 2948463 Active 2024 Ryanne Pascal [facility] 12:19:35 Problem Notes None recorded. Medical Equipment [...] Last Updated DateTime 97.1 [degF] 26.2 kg/m2 13887.9 3 g 85 /min 18 /min 97 % 120/77 mm[Hg] Lan Cooper MD [address], [place], [address], [facility] 17:09:10 Date Recorded Body height Provider Name an d Address Organization Details Last Updated DateTime 06/21/2025 170.18 cm Aissatou Carreon [facility] 06/21/2025 17:03:31 Social History None recorded. Functional [...] 08/25/2021 completed Lan Cooper MD [address] [facility] [address], [place], [address], [facility] 07/21/2023 17:38:17 COVID-19, mRNA, LNP-S, PF, 30 mcg/0.3 mL dose 12/23/2020 completed Lan Cooper MD [address] [facility] [address], [place], [address], [facility] 07/21/2023 17:38:17 COVID-19, mRNA, LNP-S, PF, 30 mcg/0.3 mL dose 01/13/2021 completed Lan Cooper MD [address], [place], [address], [facility] 07/21/2023 17:38:17 Influenza, MDCK, quadrivalent, PF 07/18/2023 completed Lan Cooper MD [address], [place], [address], [facility] 09/16/2023 16:15:00 COVID-19, mRNA, LNP-S, PF, oly-sucrose, 30 mcg/0.3 mL 07/18/2023 completed [facility] 09/16/2023 15:51:58 zoster recombinant 10/02/2023 completed MD Edna [address] [facility] [address], [place], [address], [facility] 12/30/2023 11:05:31 zoster recombinant 11/30/2023 completed MD Edna Stanley [address] [facility] [address], [place], [address], [facility] 12/30/2023 11:05:31 Influenza, MDCK, trivalent, PF 04/29/2024 completed MD Edna [address] [facility] [address], [place], [address], [facility] 10/06/2024 17:03:49 Past Encounters Encounter ID Performer Location Encounter Start Date Encounter Closed Date Diagnosis/Indication Diagnosis SNOMED-CT Code Diagnosis ICD10 Code Diagnosis IMO Codes Diagnosis Note [id number] Lan Cooper MD [facility] [address] [facility] [address] [place] [address] 06/21/2025 16:15:37 06/21/2025 17:55:18 Essential hypertension 68370428 I10 bp optimalon losartan and carvedilol , amlod 5 mg daily Snoring 94437414 R06.83 67240 renetta risk factor present, assocaited fatigue,di scussed sleep testingagr eeaable and will order Chronic neck pain 308271 7472 107 M54.2 M50.30 hx of cervical fusion 1998worsen ed neck painon cyclobenza concha prn ibuprofen prndiscuss ed physical therapyxr reviewed: multilevel ddd.methoc arbamol did not helpseen pain mgmt. Degenerati on of lumbar intervertebral disc 10351134 M51.369 worsened now in low back since [...] facet arthritis Type 2 christy betes mellitus 72925632 E11.65 dm dx 54 years. type 2initially started on metformini nsulin started in 1-2 years after jsidb0u: 7 last.eye check: 2022 , yearlyno peripheral [...] with endocrinol ogist Rosa Maria Lopez at [place], [place]/10[place]03: 8.5 on freestyle attempted mounjaro for 2 months. back on ozempic 0.5 mg q weekly.09/11 4: 6.7 uac negative3/ 24: 6.412/24: 7.5 uAC negative2024: 6.8 Long-term current use of insulin 644578541 Z79.4 regularly uses toujeo u300 30 units daily Vitamin D deficiency 347 93128 E55.9 labs reviewed Mixed hyperlipidemia 267 559933 E78.2 rosuvastat in 40 mg dailylipid profile with 221/60/125 /151switch to night time dosing./ 4: 209/65/117 /28270/24: LDL 83 on rosuvastat in Preventive procedure 169 727236 Z29.9 mammogram: 08/01: normal, 07/03: negative.c ovid: 3 shotsflu: bad reaction to this in the past ne um[place] shot: recommende dshingles: 10/03; 11/2023tdap : recommende d colonsocpy : one in the pasrt years ago. started at [address]. [address] Stephens seen.she will fu with himcologua rd 10/03: negative Localized, primary osteoarthritis of the shoulder region 029663862 M19.012 right shoulder problem ongoing.se e orthopedic s. Dr. More Trigger fi nger of right hand 9951751780 8196306 M65.30 right hand right trigger fingersees dr. Patterson Liver enzy mes level above reference range 838731530 R74.01 mildy elevated liver eznymesno alcoholNAS H: diabetes relatedhep atitis profile negative.f erritin normalrech jeana and monitor Body mass index 25-29 - overweight 469113667 E66.3 544644 bmi 25.7diet and physical activityon ozempic Psoriasis 4454223 L40.9 65243 started 01/2025expo sure to fluconazol e and metronidaz olealso on estradiol cream for atrophic vaginitiss top estradiolt ry triamcinol one creamrash is similar unchanged, itchy.poss ilbe tinea corporis, will add clotrimazo lesent to dermatolog ist: diagnosed with psoriasisn ow on clobetasol , wants to try cream. Screening for malignant neoplasm of breast 595346922 Z12.31 ordered Health Concerns Section Related Observation LastModified by Organization Detai ls LastModified Time None Recorded Concern Status LastModified by Organization Details LastModified Time None Recorded Payers Encounter Date Sequence Insurance Name Policy Number Policy Vaughn Covered Member ID Vaughn Member ID Guarantor Name 06/21/2025 1 [facility] [facility] [employer] [id number] Clare Rodriguez [id number] Clare Rodriguez Notes Date Note Type Note Provider Name and Address Organization Details Recorded Time 06/21/2025 text/html ROS as noted in the HPI Pt here for follow up. No falls noted, depression screening negative. Pt sees dermatologists for psoriasis. Pt continues to follow diabetic diet and exercises daily. No chest pain, shortness of breath, nausea or vomiting. Lan Cooper MD [address] [facility] [address], [place], [address], [facility] 06/22/2025 18:37:45 OBGyn Episode No OBEpisode recorded.
[2025-07-04] MEDS: CELECOXIB 200 MG CAPSULE PO (09:00)
[2025-07-04] MEDS: ACETAMINOPHEN 500 MG TABLET 1000 MG PO (09:00)
[2025-07-04] MEDS: LACTATED RINGERS 1,000 ML 30 ML IV CONT ×2 (09:05→14:43)
--- NOTE | 2025-07-04 09:26 | WPDHPUPDATE1 ---
History and Physical Update Update Date/Time: 07/04/25 09:26 History and Physical has been reviewed, including an updated exam of the patient. There are NO changes in the patient's condition. Risks, benefits, and alternatives have been discussed and questions answered. Patient agrees to proceed with procedure.
--- NOTE | 2025-07-04 09:33 | WPDHPUPDATE1 ---
History and Physical Update Update Date/Time: 07/04/25 09:33 History and Physical has been reviewed, including an updated exam of the patient. There are NO changes in the patient's condition. Risks, benefits, and alternatives have been discussed and questions answered. Patient agrees to proceed with procedureThe risks of injection were reviewed including but not limited to skin color changes, atrophy of the soft tissue, tendon or soft tissue rupture, joint degeneration, hyper inflammatory response, allergic reaction, continued pain or dysfunction. Specific risks of the procedure including deep infection or soft tissue rupture or recurrence of symptoms reviewed. No guarantees were offered. The patient understands the need for possible further treatment. a1 [place] right thumb
--- NOTE | 2025-07-04 11:20 | SUR.PREOP ---
PT INFORMED OF SURGERY TIME DELAY
--- NOTE | 2025-07-04 11:54 | WPDANESEPPF ---
Anes - Initial Pre Proc Eval Procedure: Operation Date: 07/04/25 11:15 Proposed Procedures p Left Thumb A-1 Neena Release - Jc More MD Date/Time: 07/04/25 11:54 Surgeon: Jc More MD Pre Op Diagnosis: trigger finger left thumb Patient Data Age: 64 Gender: F Height: 1.69 m Weight: 75.35 kg Last Vital Signs Temp 97.4 F L 07/04/25 08:45 Pulse 99 07/04/25 08:45 Resp 18 07/04/25 08:45 BP 156/84 H 07/04/25 08:45 Pulse Ox 100 07/04/25 08:45 O2 Del Method Room Air 07/04/25 08:45 Allergies Allergy/AdvReac Type Severity Reaction Status Date / Time No Known Allergies Allergy Verified 07/04/25 09:30 Home Medications ?Medication ?Instructions ?Recorded ?Confirmed ?Type aspirin 81 mg tablet,delayed 81 mg PO DAILY 08/26/19 07/04/25 History release (Adult Low Dose Aspirin) cholecalciferol (vitamin D3) 25 25 mcg PO DAILY 11/20/20 07/04/25 History mcg (1,000 unit) tablet (Vitamin D3) omeprazole 40 mg capsule,delayed 20 mg PO DAILY 11/20/20 07/04/25 History release amlodipine 5 mg tablet 5 mg PO DAILY #90 tabs 08/06/22 07/04/25 Rx losartan 50 mg tablet 50 mg PO DAILY #90 tabs 12/18/22 07/04/25 Rx pen needle, diabetic 32 gauge x #100 ea 01/06/23 06/27/25 Rx /32 carvedilol 3.125 mg tablet 3.125 mg PO DAILY #90 tabs 02/16/23 07/04/25 Rx insulin lispro 100 unit/mL See Rx Instructions subcut DAILY 02/13/25 07/04/25 Rx subcutaneous pen (Humalog KwikPen #60 mL (U-100) Insulin) rosuvastatin 40 mg tablet 40 mg PO 3XW 02/16/25 07/04/25 History semaglutide 1 mg/dose (4 mg/3 mL) 1 mg (0.75 mL) subcut WEEKLY 90 02/16/25 06/27/25 Rx subcutaneous pen injector (Ozempic) days #9 mL metformin 1,000 mg tablet 1,000 mg PO DAILY #90 tabs 02/20/25 07/04/25 Rx coenzyme Q10 30 mg capsule (Co 30 mg PO DAILY 06/27/25 07/04/25 History Q-10) insulin glargine 100 unit/mL (3 30 unit subcut QPM 06/27/25 07/04/25 History mL) subcutaneous pen (Basaglar KwikPen U-100 Insulin) naproxen sodium 220 mg capsule 220 mg PO Q6-8H PRN pain 06/27/25 06/27/25 History (Aleve) triamcinolone acetonide 0.1 % 1 applic topical BID 06/27/25 07/04/25 History topical ointment Laboratory Tests 07/04/25 09:09 POC Capillary Glucose 127 H mg/dl (65-105) Patient hx anesthesia problems: none Family hx anesthesia problems: none Results Review: All pre-operative results and documents have been reviewed as part of the pre-operative evaluation. [facility] Past Medical History Medical History Trigger thumb of right hand Chronic pain of right hand Lung nodule Overweight (BMI 25.0-29.9) Rotator cuff tendinitis GERD (gastroesophageal reflux disease) Ruptured intervertebral disc Dyslipidemia associated with type 2 diabetes mellitus Essential hypertension Hepatic steatosis Lumbar spondylolysis Osteoarthritis of spine with radiculopathy, lumbosacral region Osteoarthrosis, hip Post-menopausal Sciatica of left side Sensorineural hearing loss (SNHL) of left ear Type 2 diabetes mellitus with hyperglycemia, with long-term current use of insulin Surgical History Surgical History History of repair of left rotator cuff (11/23/20) Hx of section x4 H/O spinal fusion Hx of cholecystectomy Family History Family History Sibling Diabetes mellitus Hypertension Thyroid disease Father , age greater than 80 Diabetes mellitus Hypertension CHF (congestive heart failure) Mother , age 77 Diabetes mellitus Daughter Lupus (systemic lupus erythematosus) Other Family history of arthritis Social History Social History Social History: she lives at home with her . They have been together 34 years new been 21 years. They have total of 5 children who overall healthy. Her youngest daughter has lupus. she has a total of 24 grand children. She smoked 1 pack of cigarettes per week but quit smoking in 2007. She does not drink alcohol. 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 Primary care provider: Dr. Shakir Giron code status: Full code surrogate decision maker: Smoking packs per day: 0.25 Smoking cigarettes per day: 5.0 Years smoked: 30 Smoking pack-years: 7.50 Smoking status: Former smoker Tobacco type: cigarettes Smoking end date: 08/10/10 Alcohol intake: never Substance use: never Substance use type: does not use Living arrangements: with family Gender identity (if verbalized by the patient): Female Sexual Orientation (if Verbalized by the Patient): Straight or Heterosexual Spiritual care concerns: No Anes - Eval Final PreProcedure Day of Procedure 07/04/25 11:54 Patient weight: normal Lungs: normal air movement Airway: Mallampati scale class II Neurological: alert and oriented Last oral intake: >/= 8 hours ASA classification: III Emergent: no Anesthetic plan: proceed Anesthesia type and monitoring: general GIVS and LMA and standard monitoring Results Review: All pre-operative results and documents have been reviewed as part of the pre-operative evaluation. HTN, hyperlipidemia, DM fsbs 127, EKG w NSR. Informed Consent: The patient's anesthetic plan and its attendant risks and benefits were discussed with the patient/family/POA. Questions were solicited and answers provided to the satisfaction of the patient/family/POA.
--- NOTE | 2025-07-04 12:48 | SUR.PREOP ---
PT UPDATED ON SURGERY TIME DELAY
[2025-07-04] MEDS: BUPivacaine HCL 0.5% 10 ML AMP 20 ML INFILTRATE (13:46)
[2025-07-04] MEDS: methylPREDNISolone ACETATE 80 MG/ML VIAL 40 MG XX (13:47)
--- NOTE | 2025-07-04 14:42 | P.OP_ITS ---
Procedure Note - Detailed Date of Procedure 07/04/25 Pre-op Diagnosis trigger finger left thumb, right thumb Post-op Diagnosis Same Procedure Performed RELEASE OF A1 GORDO LEFT THUMB, INJECTION A1 GORDO RIGHT THUMB Surgeon Jc More MD Anesthesia General Description of Procedure THE PATIENT WAS TAKEN TO THE OR IN STABLE CONDITION. THE LEFT UPPER EXTREMITY WAS PREPPED AND DRAPED IN THE USUAL STERILE FASHION. THE TOURNIQUET WAS INFLATED. AN INCISION WAS MADE OVER THE THUMB A1 GORDO DOWN THROUGH THE SUBCUTANEOUS TISSUES. THE RADIAL AND ULNAR DIGITAL NERVES WERE IDENTIFIED AND PROTECTED. THE A1 GORDO SHEATH WAS VISUALIZED. AN INCISION WAS MADE OVER THE GORDO UNTIL THE FLEXOR TENDON WAS IDENTIFIED. THE INCISION CONTINUED PROXIMALLY AND DISTALLY UNTIL THE GORDO WAS RELEASED AND THE TENDON EXCURSION WAS WITHOUT TRIGGERING. THE TENDONS WERE DIRECTLY VISUALIZED AND WERE INTACT. THE TOURNI QUET WAS DEFLATED AND THE WOUNDS WERE WASHED AND THE BLEEDERS WERE CAUTERIZED. THE SKIN WAS REPAIRED WITH 3-0 NYLON. A STERILE DRESSING WAS APPLIED. NEXT THE RIGHT THUMB A1 GORDO WAS PALPATED AND DEPO MEDROL 80 MG 0.5 CC AND 0.5 CC OF MARCAINE 0.5% WERE INJECTED INTO THE TENDON SHEATH. THE TRIGGERING WAS ABSENT. BANDAID WAS PLACED. THE PATIENT WAS EXTUBATED AND SENT TO RECOVERY ROOM. Estimated Blood Loss 1 Complications No immediate complications Condition Stable Disposition PACU
== END 2025-07-04 16:20 | disposition home or self-care (01) ==
PROVIDERS: PCP Internal Medicine; Visit Provider Orthopaedic Surgery
PROC: (CPT 26055; principal; 2025-07-04 11:15)
DX: M65.312 Trigger thumb, left thumb (principal); M65.311 Trigger thumb, right thumb; E11.9 Type 2 diabetes mellitus without complications; Z87.891 Personal history of nicotine dependence
CPT/HCPCS: 26055; 20550; 82948; A9270; J1010; J2003; J2250; J2405; J2704; J3010; J7120